=== PATIENT | female | born 1975 | race Caucasian/White ===

== ENCOUNTER 2022-02-28 12:28 | Outpatient (CLI) | payer BC, SELFPAY ==
[2022-02-28 14:19] LABS: Chloride* 99 mmol/L (96-114)
[2022-02-28 14:20] LABS: Albumin* 5.2 g/dL (3.3-5.0)
[2022-02-28 14:21] LABS: Potassium* 4.3 mmol/L (3.6-5.1); Sodium* 138 mmol/L (135-149)
[2022-02-28 14:23] LABS: Alanine Aminotransferase* 95 U/L (4-35); Alkaline Phosphatase* 101 U/L (40-150); Aspartate Amino Transferase* 237 U/L (12-35); Bilirubin Total* 2.4 mg/dL (0.1-1.5); Blood Urea Nitrogen* 14 mg/dL (5-24); Carbon Dioxide* 27 mmol/L (20-32); Creatinine* 0.9 mg/dL (0.5-1.5); Estimated Glomerular Filt Rate 80 ml/min; Glucose* 118 mg/dL (60-115); Lipase* 375 U/L (23-300)
[2022-02-28 14:24] LABS: Calcium* 10.1 mg/dL (8.4-10.6)
== END 2022-02-28 12:29 | disposition home or self-care (01) ==
PROVIDERS: Visit Provider Family Medicine
DX: R11.10 Vomiting, unspecified (principal); K86.89 Other specified diseases of pancreas; R19.7 Diarrhea, unspecified
CPT/HCPCS: 80053; 83690; 87086

== ENCOUNTER 2023-02-16 00:12 | Emergency (ER) | payer BC, SELFPAY ==
--- NOTE | 2023-02-16 | CRLHL7_ITS ---
For Patients: As a result of the Century Cures Act, medical imaging exams and procedure reports are released immediately into your electronic medical record. You may view this report before your referring provider. If you have questions, please contact your health care provider. INDICATION: Pain. Elevated D-dimer. Tachycardia. Pancreatitis. COMPARISON: None TECHNIQUE: : CT examination of the chest was performed with the uneventful intravenous administration of 95 cc of Isovue 370 while thin axial sections were obtained from above the apices of the lungs to the lung bases. Please note that all CT scans at this facility use dose modulation, iterative reconstruction, and/or weight-based dosing when appropriate to reduce radiation dose to as low as reasonably achievable. FINDINGS: : HEART and MEDIASTINUM: The heart size is normal. There is no mediastinal or hilar adenopathy or mass. There is no pericardial effusion. PULMONARY ARTERIAL CIRCULATION: There is no visible intraluminal filling defect to suggest pulmonary embolus. LUNGS: The lungs show no focal consolidation or mass. The airways appear normal. PLEURAL SPACES: There is no pleural effusion, pneumothorax or pleural based mass. VISUALIZED UPPER ABDOMEN: The limited visualized upper abdominal structures appear normal. OSSEOUS STRUCTURES: Age-appropriate appearance. No acute fracture or destructive process.Breast implants incidentally noted TUBES and LINES: None. IMPRESSION: No findings of pulmonary embolus. Lungs and pleural spaces appear normal. Please note that all CT scans at this facility use dose modulation, iterative reconstruction, and/or weight-based dosing when appropriate to reduce radiation dose to as low as reasonably achievable. Dictated by iGlles Thomas MD @ 02/16/2023 3:55:48 AM (Electronically Signed)
[2023-02-16 00:21] VITALS: BP 129/89; PULSE 118; RESP 16; TEMP 36.9; O2SAT 96
[2023-02-16 00:45] VITALS: PULSE 112; O2SAT 95
--- NOTE | 2023-02-16 00:51 | CRLHL7_ITS ---
For Patients: As a result of the Century Cures Act, medical imaging exams and procedure reports are released immediately into your electronic medical record. You may view this report before your referring provider. If you have questions, please contact your health care provider. INDICATION: Right-sided abdominal pain. TECHNIQUE: Ultrasound abdomen limited. Sonographic images of the right upper quadrant were obtained using li-scale and color Doppler images. COMPARISON: None. FINDINGS: Liver: Mildly enlarged with probable fatty infiltration. No suspicious masses. No intrahepatic biliary dilatation. Portal vein is patent with blood flow toward the liver. Gallbladder: No stones or sludge. Normal wall thickness. No pericholecystic fluid. Common bile duct: 5 mm. Pancreas: Unremarkable. Right kidney: Normal in size. Normal echotexture and cortex. No suspicious masses, stones, or hydronephrosis. Vasculature: Proximal abdominal aorta and IVC are unremarkable. IMPRESSION: Moderate hepatomegaly and probable hepatic steatosis. Gallbladder in remainder of the exam are unremarkable. Dictated by Lukas Cervantes MD @ 02/16/2023 3:21:45 AM (Electronically Signed)
--- NOTE | 2023-02-16 00:54 | ED_ITS ---
HPI - General Adult General Chief complaint: Abdominal Pain Stated complaint: lower right side pain Time Seen by Provider: 02/16/23 00:39 Source: patient and family Mode of arrival: ambulatory History of Present Illness HPI narrative: 47-year-old female presents the emergency department with right-sided abdominal pain that started an hour ago. Two day history of intermittent nausea and vomiting. Pain is constant, achy. Starts under the right ribs, worse with taking a deep breath. No true shortness of breath, cough or fever. Last bowel movement earlier today, normal per her description. No prior history of abdominal surgeries. No prior history of similar symptoms. No trauma or injury. Tried taking a Zofran tablet a couple of days ago but the taste seem to make her more nauseated. Has not taken any Tylenol, ibuprofen or other medications to help with pain. No dysuria, no hematuria. She does take hormone replacement therapy, uncertain how that contributes to her history. reports that she also has a high resting heart rate naturally and has had an echo to investigate this in the past per the records. Reports that she is vegetarian but no recent dietary changes. she states that her past medical history is otherwise benign, no major long- term health problems. She denies use of any prescription medications except hormone replacement therapy but she is unable to tell me exactly what balance of hormones she is on. No known drug allergies. Nonsmoker, regular wine drinker. ROS notable for the above Dominguez as above, otherwise denies times 12 system. Related Data Home Medications Medication Instructions Recorded Confirmed alprazolam 1 mg tablet 1 mg PO QDAY 02/28/22 08/13/22 atorvastatin 20 mg tablet 20 mg PO QDAY 02/28/22 08/13/22 lisinopril 20 1 tab PO QDAY 02/28/22 08/13/22 mg-hydrochlorothiazide 12.5 mg tablet metoprolol succinate 25 mg tab PO 02/28/22 08/13/22 tablet,extended release 24 hr levothyroxine 25 mcg tablet 25 mcg PO DAILY 08/13/22 08/13/22 progesterone micronized 200 mg mg PO 08/13/22 08/13/22 capsule Previous Rx's Medication Instructions Recorded ondansetron 4 mg disintegrating 4 mg PO Q6-8H PRN nausea and 02/28/22 tablet vomiting #30 tabs Allergies Allergy/AdvReac Type Severity Reaction Status Date / Time No Known Drug Allergies Allergy Verified 02/16/23 02:53 [facility] Medical History Sore throat ?J02.9 - Acute pharyngitis, unspecified (ICD-10) Social History Smoking Status: Unknown if ever smoked Exam Const: Vital Signs, click to edit/add: Vital Signs - 24 hr 02/16/23 00:21 02/16/23 00:45 02/16/23 01:03 Temperature 98.4 F Pulse Rate 112 H 107 H Pulse Rate [Left P ulse Oximeter] 118 H Respiratory Rate 16 Blood Pressure [Ri ght Upper Arm] 129/89 Pulse Oximetry 96 95 93 Oxygen Delivery Me thod Room Air Room Air Room Air Documenting provider has reviewed patient's vital signs: yes Common normals: no apparent distress and alert General appearance: cooperative and well kempt Orientation/consciousness: Yes awake HENMT: Common normals: normocephalic Head and scalp: normocephalic Face and sinus: normal facial exam Mouth: oral and palatal mucosa normal Throat: posterior oropharynx normal Eye: Common normals: conjunctivae normal General eye: normal appearance of both eyes Conjunctiva: conjunctiva(e) normal Neck & C-Spine: Common normals: full ROM and no lymphadenopathy Resp: Common normals: normal respiratory effort, no use of accessory muscles and clear to auscultation bilaterally Effort & inspection: able to speak in complete sentences Auscultation: clear to auscultation bilaterally Cardio: Common normals: regular rate, regular rhythm, S1 normal heart sound, S2 normal heart sound and no murmurs Rate: regular rate Rhythm: regular rhythm Heart sounds: S1 normal and S2 normal GI: Common normals: Normal to inspection, nondistended, normoactive bowel sounds present, soft to palpation and no masses Palpation: soft Other: Tender to palpation along the right side, does seem to concentrate on the righ t upper quadrant, right rib margin. No rebound tenderness or guarding. Liver is 2 cm in large below costal margin. : Common normals: no CVA tenderness Bladder/kidney exam: no CVA tenderness Back & Pelvis: Common normals: no CVA tenderness Neuro: Sensorium/orientation: awake and alert Speech: speech normal Motor exam: no movement abnormalities noted Psych: Common normals: speech normal Appearance: well kempt Attitude: engaged Activity/motor behavior: appropriate eye contact Speech: normal speech Insight: insight good Judgement: judgment good Skin: Common normals: no rashes or lesions noted General skin exam: no rashes or lesions noted Course Course ED Course: Postprandial abdominal pain with nausea and vomiting suspicious for gallbladder disease. Cannot exclude cholecystitis, choledocholithiasis, biliary dyskinesia, pancreatitis, ischemic bowel, kidney stone, gastroenteritis, GERD, Appendicitis, among others. Strong suspicion for gallbladder disease. recommend basic labs, right upper quadrant ultrasound. Will give Toradol and Zofran for initial symptom control. Await findings. Reevaluation(s) Time of Reevaluation #1: 02:15 Reevaluation #1: Updated patient on lab findings. Toradol and Zofran are helping with symptoms. Concerns for chronic appearing pancreatitis and chronic hepatic dysfunction secondary to alcohol use. D-dimer is elevated which certainly could be a function of her hormone replacement therapy but certainly the hormone replacement therapy would make her at higher risk of a clot also. Ultrasound initially showing no obstruction which is great but I do have lingering concerns for possible pulmonary embolism. I recommended a CT scan of the chest abdomen and pelvis to look at this further. She is a little more marla with me on 2nd discussion regarding her drinking. says that she is probably drinking about 7 glasses of wine per day, she says 4 or 5. She reports that her friends drink more than she does which is certainly not reassuring in the context of her labs. Her labs have been abnormal for over a year. She reports that she continues to stay on testosterone therapy as well. I recommended a CT scan of the chest abdomen and pelvis to look more closely at liver, pancreas and to ev aluate for pulmonary embolism. Time of Reevaluation #2: 04:33 Reevaluation #2: CT scan findings reviewed with patient. Pain is stable, improved overall. No vomiting while in ED. She took the conversation regarding her alcohol use well. She is willing to quit completely and declines additional alcohol cessation resources at this time. She will make a follow-up appointment with her primary care provider in 4-6 weeks to have her labs rechecked and ensure that her liver and pancreas are improving. Strict alcohol abstinence encouraged, I did also encourage her to pause her hormone replacement therapy treatments until her liver has recovered as well. Alarm symptoms reviewed that would warrant ED presentation. She verbalizes understanding and agreement. Vital Signs Vital signs: Initial Vital Signs Temperature 98.4 F 02/16/23 00:21 Temperature Source Temporal Artery Scan 02/16/23 00:21 Pulse Rate 118 H 02/16/23 00:21 Pulse Rhythm Regular 02/16/23 00:21 Respiratory Rate 16 02/16/23 00:21 Blood Pressure 129/89 02/16/23 00:21 Blood Pressure Mean 102 02/16/23 00:21 Blood Pressure Position Sitting 02/16/23 00:21 Pulse Oximetry 96 02/16/23 00:21 Oxygen Delivery Method Room Air 02/16/23 00:21 Vital Signs Temperature 98.4 F 02/16/23 00:21 Pulse Rate 118 H 02/16/23 00:21 Respiratory Rate 16 02/16/23 00:21 Blood Pressure 129/89 02/16/23 00:21 Pulse Oximetry 96 02/16/23 00:21 Oxygen Delivery Method Room Air 02/16/23 00:21 Temperature 98.4 F 02/16/23 00:21 Pulse Rate 107 H 02/16/23 01:03 Respiratory Rate 16 02/16/23 00:21 Blood Pressure 129/89 02/16/23 00:21 Pulse Oximetry 93 02/16/23 01:03 Oxygen Delivery Method Room Air 02/16/23 01:03 Medications Administered Medications: Discontinued Medications Generic Name Dose Route Start Last Admin Trade Name Freq PRN Reason Stop Dose Admin Ketorolac Tromethamine 15 mg 02/16/23 00:53 02/16/23 01:03 Ketorolac 15 Mg/Ml Inj IVP 02/16/23 00:54 15 mg ONCE ONE Administration Ondansetron HCl 4 mg 02/16/23 00:53 02/16/23 01:04 Ondansetron 2 Mg/Ml Inj IVP 02/16/23 00:54 4 mg ONCE ONE Administration Medical Decision Making Lab Data Lab results reviewed: Yes I reviewed the patient's lab results Lab results narrative: Elevated D-dimer. Elevated lipase, in comparison with a year ago, peers to be a chronic finding but likely secondary to alcohol use. With liver enlargement and elevation of AST over ALT, and suspicious of hepatic liver disease. Thankfully her bilirubin is not terribly elevated in an obstructive pattern. The ultrasound is fairly reassuring as well for eliminating cholecystitis or gallstone. Labs: Lab Results 02/16/23 02/16/23 02/16/23 Range/Units 00:45 00:55 01:24 WBC 11.20 H (4.50-11.00) K/uL RBC 4.48 (4.00-5.20) m/uL Hgb 14.7 (12.0-16.0) gm/dL Hct 44.5 (33.0-51.0) % MCV 99 (80-100) fL MCH 33 (26-34) pg MCHC 33 (32-36) gm/dL RDW Coeff of Waldemar 12.6 (11.5-15.5) % Plt Count 222 (140-440) K/uL Neut % (Auto) 52.6 (42.0-72.0) % Lymph % (Auto) 29.8 (20-44) % Garza % (Auto) 14.6 H (0.0-11.0) % Eos % (Auto) 1.7 (0.0-7.0) % Baso % (Auto) 0.7 (0.0-3.0) % Neut # (Auto) 5.90 (1.7-7.0) K/uL Lymph # (Auto) 3.30 H (0.90-2.90) K/uL Garza # (Auto) 1.60 H (0.00-0.90) K/UL Eos # (Auto) 0.20 (0.00-0.50) K/uL Baso # (Auto) 0.10 (0.00-0.30) K/uL Abs Immat Gran (auto) 0.10 (0.00-0.30) K/uL Imm/Tot Granulo (auto) 0.6 % D-Dimer Quant (PE/DVT) 4.70 H (0.00-0.50) ug/ml Sodium 140 (135-149) mmol/L Potassium 4.1 (3.6-5.1) mmol/L Chloride 104 (96-114) mmol/L Carbon Dioxide 22 (20-32) mmol/L Anion Gap 14 (7-15) mEq/L BUN 8 (5-24) mg/dL Creatinine 0.6 (0.5-1.5) mg/dL Estimated GFR 111 ml/min Glucose 101 (60-115) mg/dL Lactate 1.2 (0.5-1.9) mmol/L Calcium 8.9 (8.4-10.6) mg/dL Total Bilirubin 0.7 (0.1-1.5) mg/dL AST 221 H (12-35) U/L ALT 94 H (4-35) U/L Alkaline Phosphatase 105 (40-150) U/L C-Reactive Protein 1.5 H (0.5-1.0) mg/dL Total Protein 8.9 H (6.0-8.3) g/dL Albumin 4.7 (3.3-5.0) g/dL Lipase 679 H (23-300) U/L Urine Color Yellow (Yellow) Urine Appearance Clear (Clear) Urine pH 5.5 (5.0-8.5) Ur Specific [place] 1.010 (1.000-1.030) Urine Protein Negative (Negative) Urine Glucose (UA) Negative (Negative) Urine Ketones Negative (Negative) Urine Blood Negative (Negative) Urine Nitrite Negative (Negative) Urine Bilirubin Negative (Negative) Urine Urobilinogen 0.2 (0.2-1.0) Ur Leukocyte Esterase Negative (Negative) Urine HCG, Qual Negative (Negative) Lab Acknowledgement Test Added Imaging Data US - abdomen: Attestation: I have reviewed the pertinent imaging results. My impression: No gallbladder wall thickening or common bile duct stone. Enlarged liver noted. Radiologist's impression: IMPRESSION: Moderate hepatomegaly and probable hepatic steatosis. Gallbladder in remainder of the exam are unremarkable. Dictated by Lukas Cervantes MD @ 02/16/2023 3:21:[address] scan - abdomen: Attestation: I have reviewed the pertinent imaging results. My impression: Other than liver enlargement and hepatic steatosis, normal Radiologist's impression: IMPRESSION: 1. Hepatic steatosis. Distended but otherwise unremarkable appearing gallbladder. 2. The pancreas appears normal. There is no evidence of pancreatitis or the complications thereof. It is possible pancreatitis by laboratory values without findings on CT. CT scan - chest: Attestation: I have reviewed the pertinent imaging results. My impression: Clear lungs, no PE Radiologist's impression: IMPRESSION: No findings of pulmonary embolus. Lungs and pleural spaces appear normal. Please note that all CT scans at this facility use dose modulation, iterative reconstruction, and/or weight-based dosing when appropriate to reduce radiation dose to as low as reasonably achievable. Dictated by Gilles Thomas MD @ 02/16/2023 3:55:48 AM ECG Data Attestation: I personally reviewed and interpreted this ECG as follows: Prior ECG tracings: not available for review Interpretation: Normal sinus rhythm, rate 106. No significant ST or T-wave abnormalities. Normal intervals and axis. Discharge Plan Discharge Clinical Impression: Alcohol induced acute pancreatitis Patient Disposition: Home w/ Parent or Adult Condition: Stable Instructions: Pancreatitis (ED) Additional Instructions: As we discussed, your abdominal pain is caused by inflammation of the pancreas and liver. In your case, this was mainly caused by alcohol. According to your labs, your pancreas and liver have been inflamed for at least a year. You will start to have more adverse health outcomes, memory loss, abdominal symptoms and advanced aging if you continue to drink alcohol. I would recommend that you completely cut out all alcohol from your system. Your liver and pancreas should improve within a few weeks of quitting alcohol. I would recommend that you make a follow-up appointment in 4-6 weeks to have your labs rechecked by a primary care provider. Now as we discussed, I do not recommend hormone replacement therapy, especially testosterone until your liver has recovered. For the pancreatitis, drink lots of clear liquids, no alcohol and gently advance her diet. It is common to have some nausea and poor appetite. Start with simple things like bread, crackers and soups. Try to avoid heavy fried foods for a week. As her appetite improves, increase your intake to match. It is common to have some abdominal pain with this but it should improve markedly over the next 2-3 days. If you start running a high fever and or have severe abdominal pain, come back to the emergency room. Activity Level: Activity as Tolerated Discharge Diet: Low Fat/Low Cholesterol and Clear Liquid Prescriptions: No Action metoprolol succinate 25 mg tablet extended release 24 hr PO lisinopril-hydrochlorothiazide 20-12.5 mg tablet 1 tab PO QDAY Patient Comments: Take 1 Tablet by mouth once daily. atorvastatin 20 mg tablet 20 mg PO QDAY Patient Comments: TAKE ONE TABLET BY MOUTH AT BEDTIME alprazolam 1 mg tablet 1 mg PO QDAY Patient Comments: TAKE 0.5-1 TABLET BY MOUTH DAILY NEEDED FOR SITUATIONAL ANXIETY ondansetron 4 mg tablet,disintegrating 4 mg PO Q6-8H PRN (Reason: nausea and vomiting) Qty: 30 0RF levothyroxine 25 mcg tablet 25 mcg PO DAILY progesterone micronized 200 mg capsule PO Follow Up/Referrals: Odessa Oneill MD [Primary Care Provider] - Stand Alone Forms: [employer] Info Instructions
[2023-02-16 01:00] LABS: Lactate* 1.2 mmol/L (0.5-1.9)
[2023-02-16 01:03] VITALS: PULSE 107; O2SAT 93
[2023-02-16 01:03] LABS: Basophils Percent Auto 0.7 % (0.0-3.0); Eosinophils Percent Auto 1.7 % (0.0-7.0); Hematocrit 44.5 % (33.0-51.0); Hemoglobin* 14.7 gm/dL (12.0-16.0); Immature Granulocytes Pct Auto 0.6 %; Lymphocytes Percent Auto 29.8 % (20-44); Mean Corpuscular HGB Conc 33 gm/dL (32-36); Mean Corpuscular Hemoglobin 33 pg (26-34); Mean Corpuscular Volume 99 fL (80-100); Monocytes Percent Auto 14.6 % (0.0-11.0); Neutrophils Percent Auto 52.6 % (42.0-72.0); Platelet Count* 222 K/uL (140-440); RDW Coefficient of Variation % 12.6 % (11.5-15.5); Red Blood Count 4.48 m/uL (4.00-5.20)
[2023-02-16] MEDS: KETOROLAC 15 MG/ML inj IVP (01:03)
[2023-02-16] MEDS: ONDANSETRON 2 MG/ML inj 4 MG IVP (01:04)
[2023-02-16 01:05] LABS: Slide Review Reflex No
[2023-02-16 01:05] LABS: Appearance Urine Clear (Clear); Bilirubin Urine Negative (Negative); Blood Urine Negative (Negative); Color Urine Yellow (Yellow); Glucose Urine Negative (Negative); Ketones Urine Negative (Negative); Leukocyte Esterase Urine Negative (Negative); Nitrite Urine Negative (Negative); Protein Urine Negative (Negative); Urobilinogen Urine 0.2 (0.2-1.0); pH Urine 5.5 (5.0-8.5)
[2023-02-16 01:23] LABS: Albumin* 4.7 g/dL (3.3-5.0); Chloride* 104 mmol/L (96-114)
[2023-02-16 01:24] LABS: Potassium* 4.1 mmol/L (3.6-5.1); Sodium* 140 mmol/L (135-149)
[2023-02-16 01:26] LABS: Bilirubin Total* 0.7 mg/dL (0.1-1.5); Creatinine* 0.6 mg/dL (0.5-1.5); Estimated Glomerular Filt Rate 111 ml/min
[2023-02-16 01:27] LABS: Alanine Aminotransferase* 94 U/L (4-35); Alkaline Phosphatase* 105 U/L (40-150); Anion Gap 14 mEq/L (7-15); Aspartate Amino Transferase* 221 U/L (12-35); Blood Urea Nitrogen* 8 mg/dL (5-24); Calcium* 8.9 mg/dL (8.4-10.6); Carbon Dioxide* 22 mmol/L (20-32); Glucose* 101 mg/dL (60-115); Lipase* 679 U/L (23-300); Total Protein* 8.9 g/dL (6.0-8.3)
[2023-02-16 01:30] LABS: C Reactive Protein* 1.5 mg/dL (0.5-1.0)
[2023-02-16 01:55] LABS: Ur HCG Qualitative* Negative (Negative)
--- NOTE | 2023-02-16 02:09 | CRLHL7_ITS ---
For Patients: As a result of the Century Cures Act, medical imaging exams and procedure reports are released immediately into your electronic medical record. You may view this report before your referring provider. If you have questions, please contact your health care provider. INDICATION: Right upper quadrant abdominal pain. Elevated D-dimer. Tachycardia. Pancreatitis. COMPARISON: No prior CTs of this area available for comparison TECHNIQUE: CT examination of the abdomen and pelvis was performed following the uneventful intravenous administration of 95 cc of Isovue 370. Thin section axial images were obtained from the lung bases through the pubic symphysis. Oral contrast was not administered. Please note that all CT scans at this facility use dose modulation, iterative reconstruction, and/or weight-based dosing when appropriate to reduce radiation dose to as low as reasonably achievable. FINDINGS: LUNG BASES: The lung bases as visualized appear normal.The heart size is normal at the lung bases. Breast implants incidentally noted LIVER/BILIARY SYSTEM:The liver is normal in size and configuration. Hepatic steatosis. There is no focal mass and there is no intra- or extra hepatic biliary ductal dilatation.Distended but otherwise unremarkable appearing gallbladder ADRENALS: Normal KIDNEYS, URETERS and BLADDER:The kidneys appear normal. No visible mass, calculus or hydronephrosis. The ureters and bladder as visualized appear normal. SPLEEN:Normal appearance. PANCREAS: There is no evidence of pancreatitis or the complications thereof on this CT. It is possible to have pancreatitis by laboratory values without CT findings RETROPERITONEUM and MESENTERY: There is no mass, adenopathy or aortic aneurysm. GASTROINTESTINAL SYSTEM: There is no evidence of diverticulitis, colitis, mechanical obstruction, or appendicitis. The small bowel as visualized appears normal. PELVIS: No mass, adenopathy or free fluid. OSSEOUS STRUCTURES and ABDOMINAL WALL: There is an age-appropriate appearance of the osseous structures.No significant abdominal wall defect. OTHER: No free fluid or free air. IMPRESSION: 1. Hepatic steatosis. Distended but otherwise unremarkable appearing gallbladder. 2. The pancreas appears normal. There is no evidence of pancreatitis or the complications thereof. It is possible pancreatitis by laboratory values without findings on CT. Please note that all CT scans at this facility use dose modulation, iterative reconstruction, and/or weight-based dosing when appropriate to reduce radiation dose to as low as reasonably achievable. Dictated by Gilles Thomas MD @ 02/16/2023 3:59:29 AM (Electronically Signed)
[2023-02-16 04:25] VITALS: BP 113/64; PULSE 82; RESP 18; O2SAT 98
[2023-02-16] MEDS: OMEPRAZOLE 20 MG CAPSULE DR PO (04:53)
== END 2023-02-16 04:56 | disposition home or self-care (01) ==
PROVIDERS: Emergency Provider Family Medicine; PCP Family Medicine
DX: K85.20 Alcohol induced acute pancreatitis without necrosis or infection (principal)
CPT/HCPCS: 36415; 71275; 74177; 76705; 80053; 81003; 81025; 83605; 83690; 85025; 85379; 86140; 93005; 96374; 96375; 99284; 99285; A9270; J1885; J2405; Q9967

== ENCOUNTER 2024-03-16 16:55 | Emergency (ER) | payer BC, SELFPAY ==
[2024-03-16 17:00] VITALS: BP 123/73; PULSE 148; RESP 24; TEMP 37.7; O2SAT 99; BMI 20.8
[2024-03-16] MEDS: ONDANSETRON 2 MG/ML inj 4 MG IVP (17:35)
--- NOTE | 2024-03-16 17:42 | ED.GENADULT ---
HPI - General Adult General Chief complaint: Abdominal Pain Stated complaint: GI upset, severe shaking, low temp, vomit Time Seen by Provider: 03/16/24 17:15 History of Present Illness HPI narrative: This 48-year-old female comes in reporting chills and shaking with nausea and vomiting. She has had symptoms like this in the past and has been to a brick unloader tender because her liver enzymes and lipase have been elevated. She has had CT imaging of her chest, abdomen, and pelvis. She has also had an ultrasound of the right upper quadrant. The brick unloader tender does not think that she has pancreatitis but there is something causing these elevated labs. She states that last evening she began to have nausea with vomiting. She did have a glass of wine last evening which is not abnormal for her. She tells me she has also been taking Wegovy. She is not overweight but states that she is taking this because insurance will pay for it. Related Data Home Medications ?Medication ?Instructions ?Recorded ?Confirmed alprazolam 1 mg tablet 1 mg PO QDAY 02/28/22 03/16/24 atorvastatin 20 mg tablet 20 mg PO QDAY 02/28/22 03/16/24 lisinopril 20 1 tab PO QDAY 02/28/22 03/16/24 mg-hydrochlorothiazide 12.5 mg tablet metoprolol succinate 25 mg tab PO 02/28/22 03/16/24 tablet,extended release 24 hr levothyroxine 25 mcg tablet 25 mcg PO DAILY 08/13/22 03/16/24 progesterone micronized 200 mg mg PO 08/13/22 03/16/24 capsule Previous Rx's ?Medication ?Instructions ?Recorded ondansetron 4 mg disintegrating 4 mg PO Q6-8H PRN nausea and 02/28/22 tablet vomiting #30 tabs Allergies Allergy/AdvReac Type Severity Reaction Status Date / Time No Known Drug Allergies Allergy Verified 03/16/24 17:09 Review of Systems Status of ROS: Reports: 10 or more systems reviewed and unremarkable except as noted in History and below Narrative: Constitutional: No fevers, no weight gain or loss. Eyes: No discharge. No vision changes. HENT: No congestion, no sore throat, no ear pain. Cardiovascular: No chest pain, no palpitations. Respiratory: No shortness of breath, no wheezes, no cough. Gastrointestinal: No diarrhea. Nausea and recurrent vomiting and dry heaves. She does have abdominal discomfort when vomiting but not otherwise. Genitourinary: No dysuria, no hematuria. Musculoskeletal: Normal range of motion. Skin: No rashes, no pruritis. Neurological: No dizziness, weakness, sensory change, speech change. Endo/Heme/Allergies: No bruising or bleeding. No polydipsia. Pysch: no suicidality, no anxiety, no insomnia. All other systems reviewed and are negative. [facility] Medical History (Updated 03/16/24 @ 20:34 by Daniel Wilson MD) Uncontrollable nausea and vomiting ?R11.2 - Nausea with vomiting, unspecified (ICD-10) Sore throat ?J02.9 - Acute pharyngitis, unspecified (ICD-10) Social History Smoking Status: Never smoker How often do you have a drink containing alcohol: 4 or more times a week How many standard drinks containing alcohol do you have on a typical day: 3 or 4 How often do you have six or more drinks on one occasion: Weekly AUDIT-C Alcohol total score: 8 Non-prescribed substance use: denies use Exam Narrative: Exam Narrative: Constitutional: Well-developed, well-nourished, no acute distress. HEENT: Normocephalic, atraumatic. Neck: Normal range of motion. Nontender. Supple. Heart: Regular. No murmurs. Tachycardia. Intact distal pulses. Lungs: Clear to auscultation. No chest discomfort. No wheezes, rhonchi, or rales. Abdomen: Normal bowel sounds. Nontender. No rebound tenderness. Genitalia: Deferred. Back: No midline tenderness. Normal range of motion. Extremities: Normal range of motion. No injury. Skin: Intact. No rash. Warm. No erythema or pallor. Neurologic: No altered sensation. No weakness. Alert and oriented. Psychiatric: No suicidality. No anxiety or depression. No insomnia. Nursing notes and vitals signs are reviewed. Const: Vital Signs, click to edit/add: Vital Signs - 24 hr 03/16/24 17:00 03/16/24 17:54 03/16/24 18:25 Temperature 99.9 F H 98.6 F Pulse Rate 131 H Pulse Rate [Right Pulse Oximeter] 148 H Respiratory Rate 24 Blood Pressure [Ri ght Upper Arm] 123/73 Pulse Oximetry 99 96 Oxygen Delivery Me thod Room Air 03/16/24 18:30 03/16/24 18:45 03/16/24 19:00 Temperature Pulse Rate 127 H 124 H 126 H Pulse Rate [Right Pulse Oximeter] Respiratory Rate 20 Blood Pressure [Ri ght Upper Arm] Pulse Oximetry 97 97 95 Oxygen Delivery Me thod Room Air Course Vital Signs Vital signs: Initial Vital Signs Temperature 99.9 F H 03/16/24 17:00 Temperature Source Temporal Artery Scan 03/16/24 17:00 Pulse Rate 148 H 03/16/24 17:00 Pulse Rhythm Regular 03/16/24 17:00 Respiratory Rate 24 03/16/24 17:00 Blood Pressure 123/73 03/16/24 17:00 Blood Pressure Mean 89 03/16/24 17:00 Blood Pressure Position Sitting 03/16/24 17:00 Pulse Oximetry 99 03/16/24 17:00 Oxygen Delivery Method Room Air 03/16/24 17:00 Vital Signs Temperature 99.9 F H 03/16/24 17:00 Pulse Rate 148 H 03/16/24 17:00 Respiratory Rate 24 03/16/24 17:00 Blood Pressure 123/73 03/16/24 17:00 Pulse Oximetry 99 03/16/24 17:00 Oxygen Delivery Method Room Air 03/16/24 17:00 Temperature 98.6 F 03/16/24 17:54 Pulse Rate 126 H 03/16/24 19:00 Respiratory Rate 20 03/16/24 18:30 Blood Pressure 123/73 03/16/24 17:00 Pulse Oximetry 95 03/16/24 19:00 Oxygen Delivery Method Room Air 03/16/24 18:30 Medications Administered Medications: Generic Name Dose Route Start Last Admin Trade Name Freq PRN Reason Stop Dose Admin Sodium Chloride 1,000 mls @ 1,000 mls/hr 03/16/24 19:45 03/16/24 19:54 0.9 % Sodium Chloride 1000 Ml IV 03/16/24 20:44 1,000 mls/hr .Q1H ORIANA Administration Discontinued Medications Generic Name Dose Route Start Last Admin Trade Name Freq PRN Reason Stop Dose Admin Sodium Chloride 1,000 mls @ 1,000 mls/hr 03/16/24 17:45 03/16/24 18:34 0.9 % Sodium Chloride 1000 Ml IV 03/16/24 18:44 Infused .Q1H ORIANA Infusion Sodium Chloride 1,000 mls @ 1,000 mls/hr 03/16/24 18:15 03/16/24 19:33 0.9 % Sodium Chloride 1000 Ml IV 03/16/24 19:14 Infused .Q1H ORIANA Infusion Ondansetron HCl 4 mg 03/16/24 17:40 03/16/24 17:35 Ondansetron 2 Mg/Ml Inj IVP 03/16/24 17:41 4 mg ONCE ONE Administration Medical Decision Making MDM Narrative Medical decision making narrative: This 48-year-old female comes in with persistent nausea and vomiting. She does not have any pain except when she is vomiting she feels pain in her upper abdomen. She arrives here with tachycardia but otherwise has reassuring vital signs. An IV was established where she received 4 mg of Zofran and a L of normal saline. This patient has had similar symptoms a few times in the more recent past and was seen here about a month ago at which time she had CT imaging and ultrasound imaging with reassuring results. However her lab results then were abnormal with elevated liver enzymes and lipase. Labs today are acquired and returned with similar results. Her AST is elevated but a bit less than it was a month ago. Her total bilirubin however is more elevated at 4.7. Her lactate returns at 6.6. The patient did received 2 more L of normal saline which is greater than 30 milliliters/kilogram of fluid resuscitation. She is feeling much better and does not have any abdominal pain. Her repeat lactate returns at 2.2. She is not showing any sign of infection and has not had a fever. Her white count returns a bit above normal. Her lipase is significantly elevated at 1024. She had elevated lipases in her previous visit and a follow-up appointment with the GI specialist stated that he did not think that this was pancreatitis. This patient today has no upper abdominal pain and states that she has been tolerating food normally. It is yet unclear why her labs are normal. The patient does take a glass of wine a few times a week. She also has been taking Wegovy and states that she has lost about 25 lb. I did research adverse effects of this medication and see that it can include pancreatitis. I advised her to absolutely discontinue this medicine and all alcohol as her liver should not have to do with any toxin from those sources. She is agreeable with this plan. She continues to have tachycardia despite these treatments. It is not clear why she has elevated heart rate except the patient states that she typically does have an elevated heart rate as she has seen a hormone specialist and a GI specialist who are managing some of these matters. She does have a follow-up appointment with the GI specialist next week. There are currently no beds available in this hospital nor any available and surrounding hospitals. The patient states that she wants to return home and understands that she can return at any time for further evaluation and treatment. Lab Data Labs: Lab Results 03/16/24 03/16/24 Range/Units 17:30 19:51 WBC 11.39 H (4.50-11.00) K/uL RBC 3.26 L (4.00-5.20) m/uL Hgb 11.1 L (12.0-16.0) gm/dL Hct 33.0 (33.0-51.0) % MCV 101 H (80-100) fL MCH 34 (26-34) pg MCHC 34 (32-36) gm/dL RDW Coeff of Waldemar 13.6 (11.5-15.5) % Plt Count 142 (140-440) K/uL Neut % (Auto) 81.4 H (42.0-72.0) % Lymph % (Auto) 8.8 L (20-44) % Elk % (Auto) 8.9 (0.0-11.0) % Eos % (Auto) 0.3 (0.0-7.0) % Baso % (Auto) 0.4 (0.0-3.0) % Neut # (Auto) 9.30 H (1.7-7.0) K/uL Lymph # (Auto) 1.00 (0.90-2.90) K/uL Elk # (Auto) 1.00 H (0.00-0.90) K/UL Eos # (Auto) 0.00 (0.00-0.50) K/uL Baso # (Auto) 0.00 (0.00-0.30) K/uL Abs Immat Gran (auto) 0.00 (0.00-0.30) K/uL Imm/Tot Granulo (auto) 0.2 % INR 1.23 H (0.91-1.10) Sodium 137 (135-149) mmol/L Potassium 3.8 (3.6-5.1) mmol/L Chloride 104 (96-114) mmol/L Carbon Dioxide 16 L (20-32) mmol/L Anion Gap 17 H (7-15) mEq/L BUN 8 (5-24) mg/dL Creatinine 0.6 (0.5-1.5) mg/dL Estimated Creat Clear 105.92 Estimated GFR 111 ml/min Glucose 180 H (60-115) mg/dL Lactate 6.6 H* 2.2 H (0.5-1.9) mmol/L Calcium 9.1 (8.4-10.6) mg/dL Total Bilirubin 4.7 H (0.1-1.5) mg/dL Direct Bilirubin 1.7 H (0.0-0.5) mg/dL AST 183 H (12-35) U/L ALT 39 H (4-35) U/L Alkaline Phosphatase 153 H (40-150) U/L Total Protein 8.8 H (6.0-8.3) g/dL Albumin 4.2 (3.3-5.0) g/dL Lipase 1024 H (23-300) U/L ECG Data Attestation: I personally reviewed and interpreted this ECG as follows: Interpretation: Sinus tachycardia, rate 120 beats per minute. There are no specific ST or T-wave abnormalities. Discharge Plan Discharge Clinical Impression: Uncontrollable nausea and vomiting, Elevated liver enzymes Patient Disposition: Home, Self-Care Condition: Improved Additional Instructions: Avoid all use of alcohol and discontinue Wegovy. Follow-up with brick unloader tender as scheduled. Return if worsening. Prescriptions: No Action metoprolol succinate 25 mg tablet extended release 24 hr PO lisinopril-hydrochlorothiazide 20-12.5 mg tablet 1 tab PO QDAY Patient Comments: Take 1 Tablet by mouth once daily. atorvastatin 20 mg tablet 20 mg PO QDAY Patient Comments: TAKE ONE TABLET BY MOUTH AT BEDTIME alprazolam 1 mg tablet 1 mg PO QDAY Patient Comments: TAKE 0.5-1 TABLET BY MOUTH DAILY NEEDED FOR SITUATIONAL ANXIETY ondansetron 4 mg tablet,disintegrating 4 mg PO Q6-8H PRN (Reason: nausea and vomiting) Qty: 30 0RF levothyroxine 25 mcg tablet 25 mcg PO DAILY progesterone micronized 200 mg capsule PO Follow Up/Referrals: Odessa Oneill MD [Primary Care Provider] - Stand Alone Forms: File[employer] Info Instructions
[2024-03-16] MEDS: 0.9 % SODIUM CHLORIDE 1000 ml 1,000 ML IV ×3 (17:49→19:54)
[2024-03-16 17:51] LABS: Lactate* 6.6 mmol/L (0.5-1.9)
[2024-03-16 17:54] VITALS: TEMP 37
[2024-03-16 17:56] LABS: Basophils Percent Auto 0.4 % (0.0-3.0); Eosinophils Percent Auto 0.3 % (0.0-7.0); Hemoglobin* 11.1 gm/dL (12.0-16.0); Immature Granulocytes Pct Auto 0.2 %; Lymphocytes Percent Auto 8.8 % (20-44); Mean Corpuscular HGB Conc 34 gm/dL (32-36); Mean Corpuscular Hemoglobin 34 pg (26-34); Mean Corpuscular Volume 101 fL (80-100); Monocytes Percent Auto 8.9 % (0.0-11.0); Neutrophils Percent Auto 81.4 % (42.0-72.0); Platelet Count* 142 K/uL (140-440); RDW Coefficient of Variation % 13.6 % (11.5-15.5); Red Blood Count 3.26 m/uL (4.00-5.20); White Blood Count* 11.39 K/uL (4.50-11.00)
--- OUTSIDE RECORDS SUMMARY | 2024-03-16 17:59 | XMS_ITS | Referral Summary ---
Author Organization [facility] Address [address] [place] [address] Care Team Providers Care Security Systems Installer Name Role Phone Kit Carmen PA-C Primary Care Provider [phone] Encounters Date Type Department Care Team Description 02/20/2024 12:37 AM TOP STEEP TENDER - 02/20/2024 2:35 AM [facility] [address] [place] [address] Vinod Ellis MD Vomiting, unspecified vomiting type, unspecified whether nausea present; Other cirrhosis of liver (H); Acute pancreatitis, unspecified complication status, unspecified pancreatitis type; Abnormal LFTs; Tachycardia Discharge Disposition: Home or Self Care 02/19/2024 Travel from Last 3 Months Allergies No known active allergies Medications ondansetron (ZOFRAN ODT) 4 MG ODT tab Take 1 tablet (4 mg) by mouth every 8 hours as needed for nausea or vomiting. 10 tablet 02/20/2024 Active Social History Tobacco Use Types Packs/Day Years Used Date Smoking Tobacco: Never Assessed Adolescent Education Answer Date Record ed Getting School Help Needed Not on file 11/22 Comments Unknown Sex and Gender Information Value Date Recorded Sex Assigned at Not on file Legal Sex Female 3:27 AM TOP STEEP TENDER Gender Identity Not on file Sexual Orientation Not on file Last Filed Vital Signs Vital Sign Reading Time Taken Comments Blood Pressure 127/81 02/20/2024 1:05 AM TOP STEEP TENDER Pulse 115 02/20/2024 1:05 AM TOP STEEP TENDER Temperature 37.3 C (99.1 F) 02/19/2024 8:40 PM TOP STEEP TENDER Respiratory Rate 20 02/19/2024 8:40 PM TOP STEEP TENDER Oxygen Saturation 99% 02/20/2024 1:05 AM TOP STEEP TENDER Inhaled Oxygen Concentration - - Weight 58.6 kg (129 lb 3 oz) 02/19/2024 8:40 PM TOP STEEP TENDER Height 167.6 cm (5' 6) 02/19/2024 8:40 PM TOP STEEP TENDER Body Mass Index 20.85 02/19/2024 8:40 PM TOP STEEP TENDER Plan of Treatment Not on file Procedures Procedure Name Priority Date/Time Associated Diagnosis Comments CT ABDOMEN PELVIS W CONTRAST STAT 02/19/2024 11:13 PM TOP STEEP TENDER CBC WITH PLATELETS & DIFFERENTIAL STAT 02/19/2024 8:53 PM TOP STEEP TENDER HEMOGLOBIN A1C Add-On 02/19/2024 8:53 PM TOP STEEP TENDER LIPASE STAT 02/19/2024 8:53 PM TOP STEEP TENDER CBC WITH PLATELETS AND DIFFERENTIAL STAT 02/19/2024 8:53 PM TOP STEEP TENDER EXTRA BLUE TOP TUBE STAT 02/19/2024 8 :53 PM TOP STEEP TENDER COMPREHENSIVE METABOLIC PANEL STAT 02/19/2024 8:53 PM TOP STEEP TENDER HCG QUALITATIVE STAT 02/19/2024 8:53 PM TOP STEEP TENDER EXTRA TUBE STAT 02/19/2024 8:53 PM TOP STEEP TENDER MA DIAGNOSTIC WITH IMPLANTS BILATERAL W/ ARI Routine 09/09/2022 10:57 AM CDT Subareolar mass of left breast from Last 3 Months or Most Recently Relevant to Health Maintenance Results * CT Abdomen Pelvis w Contrast (02/19/2024 11:13 PM TOP STEEP TENDER) Anatomical Region Laterality Modality Abdomen/Pelvis, SUBRAD CT RUPERTO DY, UMP CT ABDOMEN PELVIS, RAD CT Computed Tomography 02/19/2024 11:1 3 PM TOP STEEP TENDER Impressions 02/19/2024 11:39 PM TOP STEEP TENDER IMPRESSION: 1. No acute findings or inflammatory changes in the abdomen or pelvis. 2. Morphologic changes of cirrhosis. Small abdominal varices, including patent periumbilical vein and gastroesophageal varices, suggesting portal hypertension. Trace pelvic ascites. Narrative 02/19/2024 11:39 PM TOP STEEP TENDER EXAM: CT ABDOMEN PELVIS W CONTRAST LOCATION: [facility] DATE: 02/19/2024 INDICATION: Recurrent abdominal pain, bloody emesis, takes Wegovy. COMPARISON: None. TECHNIQUE: CT scan of the abdomen and pelvis was performed following injection of IV contrast. Multiplanar reformats were obtained. Dose reduction techniques were used. CONTRAST: 65 mL Isovue 370 FINDINGS: LOWER CHEST: No focal airspace disease. Partially visualized breast implants. HEPATOBILIARY: Nodular hepatic surface contour. Subcentimeter left hepatic lobe lesion measuring 0.5 cm, too small to characterize. No additional hepatic lesions identified. Gallbladder appears normal. No biliary dilatation. PANCREAS: Normal. SPLEEN: Normal. ADRENAL GLANDS: Normal. KIDNEYS/BLADDER: Nonobstructing right renal midpole calculus measuring 0.2 cm. Kidneys otherwise appear normal. No hydronephrosis. Urinary bladder is mostly decompressed. BOWEL: No obstruction or inflammatory change. Normal appendix. No evidence of acute appendicitis. PERITONEUM/RETROPERITONEUM: Trace pelvic ascites. No intraperitoneal free air. LYMPH NODES: No lymphadenopathy. VASCULATURE: Small abdominal varices, including patent periumbilical vein and gastroesophageal varices. PELVIC ORGANS: Unremarkable. MUSCULOSKELETAL: Multilevel degenerative changes of the spine. Procedure Note Ronan Velazquez MD - 02/19/2024 EXAM: CT ABDOMEN PELVIS W CONTRAST LOCATION: [facility] DATE: 02/19/2024 INDICATION: Recurrent abdominal pain, bloody emesis, takes Wegovy. COMPARISON: None. TECHNIQUE: CT scan of the abdomen and pelvis was performed followinginjection of IV contrast. Multiplanar reformats were obtained. Dosereduction techniques were used. CONTRAST: 65 mL Isovue 370 FINDINGS: LOWER CHEST: No focal airspace disease. Partially visualized breastimplants. HEPATOBILIARY: Nodular hepatic surface contour. Subcentimeter left hepaticlobe lesion measuring 0.5 cm, too small to characterize. No additionalhepatic lesions identified. Gallbladder appears normal. No biliarydilatation. PANCREAS: Normal. SPLEEN: Normal. ADRENAL GLANDS: Normal. KIDNEYS/BLADDER: Nonobstructing right renal midpole calculus measuring 0.2cm. Kidneys otherwise appear normal. No hydronephrosis. Urinary bladder ismostly decompressed. BOWEL: No obstruction or inflammatory change. Normal appendix. No evidenceof acute appendicitis. PERITONEUM/RETROPERITONEUM: Trace pelvic ascites. No intraperitoneal freeair. LYMPH NODES: No lymphadenopathy. VASCULATURE: Small abdominal varices, including patent periumbilical veinand gastroesophageal varices. PELVIC ORGANS: Unremarkable. MUSCULOSKELETAL: Multilevel degenerative changes of the spine. IMPRESSION: 1. No acute findings or inflammatory changes in the abdomen or pelvis. 2. Morphologic changes of cirrhosis. Small abdominal varices, includingpatent periumbilical vein and gastroesophageal varices, suggesting portalhypertension. Trace pelvic ascites. Brody Richards MD IMG CT ORDERABLES Final Resu lt * Extra Blue Top Tube (02/19/2024 8:53 PM TOP STEEP TENDER) Pathologist [facility] Hold Specimen [facility] 02/19/2024 10:31 PM TOP STEEP TENDER LABORATORY Blood BLOOD SPECIMEN / Unknown Venipuncture / Unknown 02/19/2024 8:53 PM TOP STEEP TENDER 02/19/2024 9:18 PM TOP STEEP TENDER Vinod Ellis MD LAB - BLOOD ORDERABLES Final Result LABORATORY [facility] [address] [facility] Lab (1st floor, no room number) [place] [address] * (ABNORMAL) CBC with platelets and differential (02/19/2024 8:53 PM TOP STEEP TENDER) Pathologist [facility] WBC Count 11.3(H) 4.0 - 11.0 10e3/uL 02/19/2024 9:26 PM TOP STEEP TENDER LABORATORY RBC Count 3.50(L) 3.80 - 5.20 10e6/uL 02/19/2024 9:26 PM TOP STEEP TENDER LABORATORY Hemoglobin 11.7 11.7 - 15.7 g/dL 02/19/2024 9:26 PM TOP STEEP TENDER RH LABORATORY Hematocrit 34.8(L) 35.0 - 47.0 % 02/19/2024 9:26 PM TOP STEEP TENDER [facility] LABORATORY MCV 99 78 - 100 fL 02/19/2024 9:26 PM TOP STEEP TENDER RH LABORATORY MCH 33.4(H) 26.5 - 33.0 pg 02/19/2024 9:26 PM TOP STEEP TENDER RH LABORATORY MCHC 33.6 31.5 - 36.5 g/dL 02/19/2024 9:26 PM TOP STEEP TENDER [facility] LABORATORY RDW 14.2 10.0 - 15.0 % 02/19/2024 9:26 PM TOP STEEP TENDER [facility] LABORATORY Platelet Count 171 150 - 450 10e3/uL 02/19/2024 9:26 PM TOP STEEP TENDER [facility] LABORATORY % Neutrophils 79 % 02/19/2024 9:26 PM TOP STEEP TENDER [facility] LABORATORY % Lymphocytes 13 % 02/19/2024 9:26 PM TOP STEEP TENDER [facility] LABORATORY % Monocytes 7 % 02/19/2024 9:26 PM TOP STEEP TENDER [facility] LABORATORY % Eosinophils 0 % 02/19/2024 9:26 PM TOP STEEP TENDER [facility] LABORATORY % Basophils 1 % 02/19/2024 9:26 PM TOP STEEP TENDER [facility] LABORATORY % Immature Granulocytes 0 % 02/19/2024 9:26 PM TOP STEEP TENDER RH LABORATORY NRBCs per 100 WBC 0 <1 /100 024 9:26 PM TOP STEEP TENDER RH LABORATORY Absolute Neutrophils 8.9(H) 1.6 - 8.3 10e3/uL 02/19/2024 9:26 PM TOP STEEP TENDER RH LABORATORY Absolute Lymphocytes 1.4 0.8 - 5.3 10e3/uL 02/19/2024 9:26 PM TOP STEEP TENDER RH LABORATORY Absolute Monocytes 0.7 0.0 - 1.3 10e3/uL 02/19/2024 9:26 PM TOP STEEP TENDER RH LABORATORY Absolute Eosinophils 0.0 0.0 - 0.7 10e3/uL 02/19/2024 9:26 PM TOP STEEP TENDER [facility] LABORATORY Absolute Basophils 0.1 0.0 - 0.2 10e3/uL 02/19/2024 9:26 PM TOP STEEP TENDER RH LABORATORY Absolute Immature Granulocytes 0.0 <=0.4 10e3/uL 02/19/2024 9:26 PM TOP STEEP TENDER RH LABORATORY Absolute NRBCs 0.0 10e3/uL 02/19/2024 9:26 PM TOP STEEP TENDER RH LABORATORY Blood BLOOD SPECIMEN / Unknown Venipuncture / Unknown 02/19/2024 8:53 PM TOP STEEP TENDER 02/19/2024 9:18 PM TOP STEEP TENDER Brody Richards MD LAB - BLOOD ORDERABLES Final Result [facility] [address] Lab (1st floor, no room number) [place] [phone] [place] [address] * (ABNORMAL) Lipase (02/19/2024 8:53 PM TOP STEEP TENDER) Pathologist [facility] Lipase 347(H) 13 - 60 U/L 02/20/2024 2:11 AM TOP STEEP TENDER LABORATORY Blood BLOOD SPECIMEN / Unknown Venipuncture / Unknown 02/19/2024 8:53 PM TOP STEEP TENDER 02/19/2024 9:18 PM TOP STEEP TENDER Vinod Ellis MD LAB - BLOOD ORDERABLES Final Result Performing Organization Address [facility] Co de Phone Number [facility] [address] Lab (1st floor, no room number) [place] [phone] [place] [address] * Hemoglobin A1c (02/19/2024 8:53 PM TOP STEEP TENDER) [facility] Estimated Average Glucose 108 <117 mg/dL 02/20/2024 2:39 AM TOP STEEP TENDER LABORATORY Hemoglobin A1C 5.4 <5.7 % 02/20/2024 2:39 AM TOP STEEP TENDER LABORATORY Comment: Normal <5.7% Prediabetes 5.7-6.4% Diabetes 6.5% or higher Note: Adopted from ADA consensus guidelines. Blood BLOOD SPECIMEN / Unknown Venipuncture / Unknown 02/19/2024 8:53 PM TOP STEEP TENDER 02/19/2024 9:18 PM TOP STEEP TENDER Vinod Ellis MD LAB - BLOOD ORDERABLES Final Result Performing Organization Address City/[facility]/ZIP Co de Phone Number [facility] [address] Lab (1st floor, no room number) [place] [phone] * HCG QUALitative (blood) (02/19/2024 8:53 PM TOP STEEP TENDER) hCG Serum Qualitative Negative Negative NOHEMI 02/19/2024 10:00 PM TOP STEEP TENDER [facility] LABORATORY Comment:This test is for scr eening purposes. Results should be interpreted along with the clinical picture. Confirmation testing is available if warranted by ordering [id number], HCG Quantitative . Blood BLOOD SPECIMEN / Unknown Venipuncture / Unknown 02/19/2024 8:53 PM TOP STEEP TENDER 02/19/2024 9:18 PM TOP STEEP TENDER us Brody Richards MD LAB - BLOOD ORDERABLES Final Result LABORATORY [facility] [address] [facility] Lab (1st floor, no room number) [place] [address], [facility] * (ABNORMAL) Comprehensive metabolic panel (02/19/2024 8:53 PM TOP STEEP TENDER) Sodium 135 135 - 145 mmol/L 02/19/2024 9:43 PM TOP STEEP TENDER LABORATORY Potassium 4.1 3.4 - 5.3 mmol/L 02/19/2024 9:43 PM TOP STEEP TENDER LABORATORY Carbon Dioxide (CO2) 19(L) 22 - 29 mmol/L 02/19/2024 9:43 PM TOP STEEP TENDER LABORATORY Anion Gap 21(H) 7 - 15 mmol/L 02/19/2024 9:43 PM TOP STEEP TENDER LABORATORY Urea Nitrogen 10.0 6.0 - 20.0 mg/dL 02/19/2024 9:43 PM TOP STEEP TENDER LABORATORY Creatinine 0.65 0.51 - 0.95 mg/dL 02/19/2024 9:43 PM TOP STEEP TENDER LABORATORY GFR Estimate >90 >60 mL/min/1.7 3m2 02/19/2024 9:43 PM TOP STEEP TENDER LABORATORY Comment:eGFR calculated us2020 CKD-EPI equation. Calcium 9.7 8.8 - 10.4 mg/dL 02/19/2024 9:43 PM TOP STEEP TENDER LABORATORY Comment:Reference intervals for this test were updated on 09/07/2023 to reflect our healthy population more accurately. There may be differences in the flagging of prior results with similar values performed with this method. Those prior results can be interpreted in the context of the updated reference intervals. Chloride 95(L) 98 - 107 mmol/L 02/19/2024 9:43 PM TOP STEEP TENDER LABORATORY Glucose 144(H) 70 - 99 mg/dL 02/19/2024 9:43 PM TOP STEEP TENDER LABORATORY Alkaline Phosphatase 153(H) 40 - 150 U/L 02/19/2024 9:43 PM TOP STEEP TENDER LABORATORY AST 216(H) 0 - 45 U/L 02/19/2024 9:43 PM TOP STEEP TENDER LABORATORY ALT 44 0 - 50 U/L 02/19/2024 9:43 PM TOP STEEP TENDER LABORATORY Protein Total 8.6(H) 6.4 - 8.3 g/dL 02/19/2024 9:43 PM TOP STEEP TENDER LABORATORY Albumin 3.8 3.5 - 5.2 g/dL 02/19/2024 9:43 PM TOP STEEP TENDER LABORATORY Bilirubin Total 4.0(H) <=1.2 mg/dL 02/19/2024 9:43 PM TOP STEEP TENDER LABORATORY Blood BLOOD SPECIMEN / Unknown Venipuncture / Unknown 02/19/2024 8:53 PM TOP STEEP TENDER 02/19/2024 9:18 PM TOP STEEP TENDER us Brody Richards MD LAB - BLOOD ORDERABLES Final Result [facility] [address] [facility] Lab (1st floor, no room number) [place] [address] * MA Diagnostic with Implants Bilateral w/Ari (09/09/2022 10:57 AM CDT) Anatomical Region Laterality Modality Breast Bilateral Mammography Impressions 09/09/2022 11:55 AM CDT IMPRESSION: BI-RADS CATEGORY: 2 - Benign Finding(s). RECOMMENDED FOLLOW-UP: Annual Mammography. The patient was given the results of the examination. DEQUAN EDDY MD Narrative 09/09/2022 11:55 AM CDT Examination: Bilateral digital diagnostic mammography and digital breast tomosynthesis with computer aided detection, and focused ultrasound of both breasts, 09/09/2022. Comparison: 03/04/2015 and 06/20/2021. History: Palpable lump in the retroareolar LEFT breast. BREAST DENSITY: Scattered fibroglandular densities Findings: Bilateral mammography with digital breast tomosynthesis performed with a triangle shaped marker in the periareolar LEFT breast at the patient's area of concern. Asymmetric density is seen in the retroareolar aspect of both breasts. Retropectoral saline implants are seen on both sides. Focussed ultrasound of the retroareolar aspect of both breasts was performed. Benign cysts are seen within and just deep to the areola on both sides, RIGHT greater than LEFT. No concerning findings identified. Kit Carmen PA-C IMG MAMMOGRAPHY ORDERABLES F inal Result from Last 3 Months or Most Recently Relevant to Health Maintenance Insurance [facility] Care Teams Security Systems Installer Relationship Specialty Start Date End Date Kit Carmen PA-C [facility] [address] [place] [address] PCP - General Physician Community Pharmacist 08/24/17
--- OUTSIDE RECORDS SUMMARY | 2024-03-16 17:59 | XMS_ITS | Encounter Summary ---
Author Organization [facility] Address [address] [place] [id number] Care Team Providers Care Teen Counselor Name Role Phone Kit Carmen PA-C Primary Care Provider [phone] Encounter Details Date Type Department Care Team (Latest Contact Info) Description 02/19/2024 Travel Social History Tobacco Use Types Packs/Day Years Used Date Smoking Tobacco: Never Assessed Adolescent Education Answer Date Record ed Getting School Help Needed Not on file 11/22 Comments Unknown Sex and Gender Information Value Date Recorded Sex Assigned at Not on file Legal Sex Female 3:27 AM MAINTENANCE ELECTRICIAN Gender Identity Not on file Sexual Orientation Not on file documented as of this encounter Plan of Treatment Not on file documented as of this encounter Visit Diagnoses Not on filedocumented in this encounter Care Teams Teen Counselor Relationship Specialty Start Date End Date Kit Carmen PA-C [facility] [address] [place], [place] [phone] PCP - General Physician Countersinker 08/24/17 documented as of this encounter
--- OUTSIDE RECORDS SUMMARY | 2024-03-16 17:59 | XMS_ITS | Clinical Summary ---
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 10 tablet 02/20/2024 Active Encounters Date Type Department Care Team Description 02/20/2024 12:37 AM [facility] - 02/20/2024 2:35 AM [facility] Emergency [facility] Emergency Dept [address] [place] [address] Vinod Ellis MD Vomiting, unspecified vomiting type, unspecified whether nausea present; Other cirrhosis of liver (H); Acute pancreatitis, unspecified complication status, unspecified pancreatitis type; Abnormal LFTs; Tachycardia Discharge Disposition: Home or Self Care 02/19/2024 Travel from Last 3 Months Family History Medical History Relation Comments Breast Cancer No family hx of Ovarian Cancer No family hx of Social History Tobacco Use Types Packs/Day Years Used Date Smoking Tobacco: Never Assessed Adolescent Education Answer Date Record ed Getting School Help Needed Not on file 11/22 Comments Unknown Sex and Gender Information Value Date Recorded Sex Assigned at Not on file Legal Sex Female 3:27 AM [facility] Gender Identity Not on file Sexual Orientation Not on file Last Filed Vital Signs Vital Sign Reading Time Taken Comments Blood Pressure 127/81 02/20/2024 1:05 AM [facility] Pulse 115 02/20/2024 1:05 AM [facility] Temperature 37.3 C (99.1 F) 02/19/2024 8:40 PM [facility] Respiratory Rate 20 02/19/2024 8:40 PM [facility] Oxygen Saturation 99% 02/20/2024 1:05 AM [facility] Inhaled Oxygen Concentration - - Weight 58.6 kg (129 lb 3 oz) 02/19/2024 8:40 PM [facility] Height 167.6 cm (5' 6) 02/19/2024 8:40 PM [facility] Body Mass Index 20.85 02/19/2024 8:40 PM [facility] Plan of Treatment Health Maintenance Due Date Last Done Comments ADVANCE CARE PLANNING 1975 ANNUAL REVIEW OF HM ORDERS 1975 CT COLONOGRAPHY 1975 FIT 1975 FLEX SIG 1975 COLONOSCOPY 12/01/1985 HIV SCREENING 12/01/1990 HEPATITIS C SCREENING 12/01/1993 HEPATITIS A IMMUNIZATION (1 of 2 - Risk 2-dose series) 12/01/1994 HEPATITIS B IMMUNIZATION (1 of 3 - 19+ 3-dose series) 12/01/1994 Pneumococcal Vaccine: Pediatrics (0 to 5 Years) and At-Risk Patients (6 to 49 Years) (1 of 2 - PCV) 12/01/1994 LIPID 2015 COVID-19 Vaccine ( season) 2023 12/27/2020, 05/30/2020, 05/09/2020 INFLUENZA VACCINE (#1) 2023 PHQ-2 (once per calendar year) 2024 YEARLY PREVENTIVE VISIT 04/12/2024 04/12/2023, 11/26 MAMMO SCREENING 09/09/2024 09/09/2022, 04/2 10/2021, 02/12/2020, Additional history exists PAP 11/26/2024 11/26/2021 COLORECTAL CANCER SCREENING 12/11/2024 sDNA (Cologuard) 12/11/2024 12/11/2021, 12/11/2021 DTAP/TDAP/TD IMMUNIZATION (3 - Td or Tdap) 04/28/2026 04/28/2016, 06/22/2006 GLUCOSE 02/18/2027 02/19/2024, 01/23/2009 RSV VACCINE (1 - 1-dose 75+ series) 12/01/2050 HPV IMMUNIZATION Aged Out No longer e ligible based on patient's age to complete this topic MENINGITIS IMMUNIZATION Aged Out No l onger eligible based on patient's age to complete this topic RSV MONOCLONAL ANTIBODY Aged Out No l onger eligible based on patient's age to complete this topic Procedures Procedure Name Priority Date/Time Associated Diagnosis Comments CT ABDOMEN PELVIS W CONTRAST STAT 02/19/2024 11:13 PM [facility] CBC WITH PLATELETS & DIFFERENTIAL STAT 02/19/2024 8:53 PM [facility] HEMOGLOBIN A1C Add-On 02/19/2024 8:53 PM [facility] LIPASE STAT 02/19/2024 8:53 PM [facility] CBC WITH PLATELETS AND DIFFERENTIAL STAT 02/19/2024 8:53 PM [facility] EXTRA BLUE TOP TUBE STAT 02/19/2024 8 :53 PM [facility] COMPREHENSIVE METABOLIC PANEL STAT 02/19/2024 8:53 PM [facility] HCG QUALITATIVE STAT 02/19/2024 8:53 PM [facility] EXTRA TUBE STAT 02/19/2024 8:53 PM [facility] MA DIAGNOSTIC WITH IMPLANTS BILATERAL W/ ARI Routine 09/09/2022 10:57 AM CDT Subareolar mass of left breast from Last 3 Months or Most Recently Relevant to Health Maintenance Results * CT Abdomen Pelvis w Contrast (02/19/2024 11:13 PM [facility]) Anatomical Region Laterality Modality Abdomen/Pelvis, SUBRAD CT RUPERTO DY, UMP CT ABDOMEN PELVIS, RAD CT Computed Tomography 02/19/2024 11:1 3 PM [facility] Impressions 02/19/2024 11:39 PM [facility] IMPRESSION: 1. No acute findings or inflammatory changes in the abdomen or pelvis. 2. Morphologic changes of cirrhosis. Small abdominal varices, including patent periumbilical vein and gastroesophageal varices, suggesting portal hypertension. Trace pelvic ascites. Narrative 02/19/2024 11:39 PM [facility] EXAM: CT ABDOMEN PELVIS W CONTRAST LOCATION: [facility] DATE: 02/19/2024 INDICATION: Recurrent abdominal pain, bloody [...] EXAM: CT ABDOMEN PELVIS W CONTRAST LOCATION: [facility] DATE: 02/19/2024 INDICATION: Recurrent abdominal pain, bloody [...] gastroesophageal varices, suggesting portalhypertension. Trace pelvic ascites. us Brody Richards MD IMG CT ORDERABLES Final Resu lt * Extra Blue Top Tube (02/19/2024 8:53 PM [facility]) [facility] Hold Specimen [facility] 02/19/2024 10:31 PM [facility] LABORATORY Blood BLOOD SPECIMEN / Unknown Venipuncture / Unknown 02/19/2024 8:53 PM [facility] 02/19/2024 9:18 PM [facility] us Vinod Ellis MD LAB - BLOOD ORDERABLES Final Result [facility] [address] [facility] Lab (1st floor, no room number) [place] [address], [facility] * (ABNORMAL) CBC with platelets and differential (02/19/2024 8:53 PM [facility]) [facility] WBC Count 11.3(H) 4.0 - 11.0 10e3/uL 02/19/2024 9:26 PM [facility] LABORATORY RBC Count 3.50(L) 3.80 - 5.20 10e6/uL 02/19/2024 9:26 PM [facility] Hemoglobin 11.7 11.7 - 15.7 g/dL 02/19/2024 9:26 PM [facility] Hematocrit 34.8(L) 35.0 - 47.0 % 02/19/2024 9:26 PM [facility] MCV 99 78 - 100 fL 02/19/2024 9:26 PM [facility] MCH 33.4(H) 26.5 - 33.0 pg 02/19/2024 9:26 PM [facility] MCHC 33.6 31.5 - 36.5 g/dL 02/19/2024 9:26 PM [facility] RDW 14.2 10.0 - 15.0 % 02/19/2024 9:26 PM [facility] Platelet Count 171 150 - 450 10e3/uL 02/19/2024 9:26 PM [facility] % Neutrophils 79 % 02/19/2024 9:26 PM [facility] % Lymphocytes 13 % 02/19/2024 9:26 PM [facility] % Monocytes 7 % 02/19/2024 9:26 PM [facility] % Eosinophils 0 % 02/19/2024 9:26 PM [facility] % Basophils 1 % 02/19/2024 9:26 PM [facility] % Immature Granulocytes 0 % 02/19/2024 9:26 PM [facility] NRBCs per 100 WBC 0 <1 /100 024 9:26 PM [facility] Absolute Neutrophils 8.9(H) 1.6 - 8.3 10e3/uL 02/19/2024 9:26 PM [facility] Absolute Lymphocytes 1.4 0.8 - 5.3 10e3/uL 02/19/2024 9:26 PM [facility] Absolute Monocytes 0.7 0.0 - 1.3 10e3/uL 02/19/2024 9:26 PM [facility] Absolute Eosinophils 0.0 0.0 - 0.7 10e3/uL 02/19/2024 9:26 PM [facility] Absolute Basophils 0.1 0.0 - 0.2 10e3/uL 02/19/2024 9:26 PM [facility] Absolute Immature Granulocytes 0.0 <=0.4 10e3/uL 02/19/2024 9:26 PM [facility] Absolute NRBCs 0.0 10e3/uL 02/19/2024 9:26 PM [facility] Blood BLOOD SPECIMEN / Unknown Venipuncture / Unknown 02/19/2024 8:53 PM [facility] 02/19/2024 9:18 PM [facility] Brody Richards MD LAB - BLOOD ORDERABLES Final Result LABORATORY [facility] [address] Lab (1st floor, no room number) [address] * (ABNORMAL) Lipase (02/19/2024 8:53 PM [facility]) [facility] Lipase 347(H) 13 - 60 U/L 02/20/2024 2:11 AM [facility] LABORATORY Blood BLOOD SPECIMEN / Unknown Venipuncture / Unknown 02/19/2024 8:53 PM [facility] 02/19/2024 9:18 PM [facility] Vinod Ellis MD LAB - BLOOD ORDERABLES Final Result Performing Organization Address [facility]/ZIP Co de Phone Number [facility] [address] Lab (1st floor, no room number) [address] * Hemoglobin A1c (02/19/2024 8:53 PM [facility]) [facility] Estimated Average Glucose 108 <117 mg/dL 02/20/2024 2:39 AM [facility] Hemoglobin A1C 5.4 <5.7 % 02/20/2024 2:39 AM [facility] Comment: Normal <5.7% Prediabetes 5.7-6.4% Diabetes 6.5% or higher Note: Adopted from ADA consensus guidelines. Blood BLOOD SPECIMEN / Unknown Venipuncture / Unknown 02/19/2024 8:53 PM [facility] 02/19/2024 9:18 PM [facility] Vinod Ellis MD LAB - BLOOD ORDERABLES Final Result [facility] [address] Lab (1st floor, no room number) [address] * HCG QUALitative (blood) (02/19/2024 8:53 PM [facility]) [facility] hCG Serum Qualitative Negative Negative NOHEMI 02/19/2024 10:00 PM [facility] Comment:This test is for scr eening purposes. Results should be interpreted along with the clinical picture. Confirmation testing is available if warranted by ordering [id number], HCG Quantitative . Blood BLOOD SPECIMEN / Unknown Venipuncture / Unknown 02/19/2024 8:53 PM [facility] 02/19/2024 9:18 PM [facility] Brody Richards MD LAB - BLOOD ORDERABLES Final Result LABORATORY [facility] [address] Lab (1st floor, no room number) [place] [address], [facility] * (ABNORMAL) Comprehensive metabolic panel (02/19/2024 8:53 PM [facility]) Sodium 135 135 - 145 mmol/L 02/19/2024 9:43 PM [facility] Potassium 4.1 3.4 - 5.3 mmol/L 02/19/2024 9:43 PM [facility] Carbon Dioxide (CO2) 19(L) 22 - 29 mmol/L 02/19/2024 9:43 PM [facility] Anion Gap 21(H) 7 - 15 mmol/L 02/19/2024 9:43 PM [facility] Urea Nitrogen 10.0 6.0 - 20.0 mg/dL 02/19/2024 9:43 PM [facility] Creatinine 0.65 0.51 - 0.95 mg/dL 02/19/2024 9:43 PM [facility] GFR Estimate >90 >60 mL/min/1.7 3m2 02/19/2024 9:43 PM [facility] Comment:eGFR calculated usin 2020 CKD-EPI equation. Calcium 9.7 8.8 - 10.4 mg/dL 02/19/2024 9:43 PM [facility] Comment:Reference intervals for this test were updated on 09/07/2023 to reflect our healthy population more accurately. There may be differences in the flagging of prior results with similar values performed with this method. Those prior results can be interpreted in the context of the updated reference intervals. Chloride 95(L) 98 - 107 mmol/L 02/19/2024 9:43 PM [facility] Glucose 144(H) 70 - 99 mg/dL 02/19/2024 9:43 PM [facility] Alkaline Phosphatase 153(H) 40 - 150 U/L 02/19/2024 9:43 PM [facility] AST 216(H) 0 - 45 U/L 02/19/2024 9:43 PM [facility] ALT 44 0 - 50 U/L 02/19/2024 9:43 PM [facility] Protein Total 8.6(H) 6.4 - 8.3 g/dL 02/19/2024 9:43 PM [facility] Albumin 3.8 3.5 - 5.2 g/dL 02/19/2024 9:43 PM [facility]ORY Bilirubin Total 4.0(H) <=1.2 mg/dL 02/19/2024 9:43 PM [facility] Blood BLOOD SPECIMEN / Unknown Venipuncture / Unknown 02/19/2024 8:53 PM [facility] 02/19/2024 9:18 PM [facility] us Brody Richards MD LAB - BLOOD ORDERABLES Final Result LABORATORY [facility] [address] [facility] Lab (1st floor, no room number) [place] [address] * [place] Diagnostic with Implants [...] Most Recently Relevant to Health Maintenance Insurance 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
--- OUTSIDE RECORDS SUMMARY | 2024-03-16 17:59 | XMS_ITS | Encounter Summary ---
Author Organization [facility] Address [address] [place] [id number] Care Team Providers Care French Comber Name Role Phone Kit Carmen PA-C Primary Care Provider Reason for Visit * Reason Comments Abdominal Pain Nausea & Vomiting Encounter Details Date Type Department Care Team (Late st Contact Info) Description 02/20/2024 12:37 AM DEOILING MACHINE OPERATOR - 02/20/2024 2:35 AM DEOILING MACHINE OPERATOR Emergency [facility] Emergency Dept [address] [place] [id number] [phone] Vinod Ellis MD [facility] [address] [place], [place] [id number] Vomiting, unspecified vomiting type, unspecified whether nausea present; Other cirrhosis of liver (H); Acute pancreatitis, unspecified complication status, unspecified pancreatitis type; Abnormal LFTs; Tachycardia Discharge Disposition: Home or Self Care Social History Tobacco Use Types Packs/Day Years Used Date Smoking Tobacco: Never Assessed Adolescent Education Answer Date Record ed Getting School Help Needed Not on file 11/22 Comments Unknown Sex and Gender Information Value Date Recorded Sex Assigned at Not on file Legal Sex Female 3:27 AM DEOILING MACHINE OPERATOR Gender Identity Not on file Sexual Orientation Not on file documented as of this encounter Last Filed Vital Signs Vital Sign Reading Time Taken Comments Blood Pressure 127/81 02/20/2024 1:05 AM DEOILING MACHINE OPERATOR Pulse 115 02/20/2024 1:05 AM DEOILING MACHINE OPERATOR Temperature 37.3 C (99.1 F) 02/19/2024 8:40 PM DEOILING MACHINE OPERATOR Respiratory Rate 20 02/19/2024 8:40 PM DEOILING MACHINE OPERATOR Oxygen Saturation 99% 02/20/2024 1:05 AM DEOILING MACHINE OPERATOR Inhaled Oxygen Concentration - - Weight 58.6 kg (129 lb 3 oz) 02/19/2024 8:40 PM DEOILING MACHINE OPERATOR Height 167.6 cm (5' 6) 02/19/2024 8:40 PM DEOILING MACHINE OPERATOR Body Mass Index 20.85 02/19/2024 8:40 PM DEOILING MACHINE OPERATOR documented in this encounter Discharge Instructions * Discharge Instructions* Vinod Ellis MD - 02/20/2024 2:23 AM DEOILING MACHINE OPERATOR Discharge Instructions Vomiting You have been seen today for vomiting (throwing up). This is usually caused by a virus, but some bacteria, parasites, medicines or other medical conditions can cause similar symptoms. At this time your provider does not find that your vomiting is a sign of anything dangerous or life-threatening. However, sometimes the signs of serious illness do not show up right away. If you have new or worse symptoms, you may need to be seen again in the Emergency Department or by your primary provider. Remember that serious problems like appendicitis can start as vomiting. Generally, every Emergency Department visit should have a follow-up clinic visit with either a primary or a specialty clinic/provider. Please follow-up as instructed by your emergency provider today. Return to the Emergency Department if: You keep vomiting and you are not able to keep liquids down. You feel you are getting dehydrated, such as being very thirsty, not urinating (peeing) at least every 8-12 hours, or feeling faint or lightheaded. You develop a new fever, or your fever continues for more than 2 days. You have abdominal (belly pain) that seems worse than cramps, is in one spot, or is getting worse over time. Appendicitis usually causes pain in the right lower abdomen (to the right and below your belly button) so watch for pain in this location. You have blood in your vomit or stools. You feel very weak. You are not starting to improve within 24 hours of your visit here. What can I do to help myself? The most important thing to do is to drink clear liquids. If you have been vomiting a lot, it is best to have only small, frequent sips of liquids. Drinking too much at once may cause more vomiting. If you are vomiting often, you must replace minerals, sodium and potassium lost with your illness. Pe dialyte?? is the best available rehydration liquid but some find that it doesn???t taste good so sports drinks are an alterative. You can also drink clear liquids such as water, weak tea, apple juice, and 7-Up??. Avoid acid liquids (orange), caffeine (coffee) or alcohol. Do not drink milk until youno longer have diarrhea (loose stools). After liquids are staying down, you may start eating mild foods. Soda crackers, toast, plain noodles, gelatin, applesauce and bananas are good first choices. Avoid foods that have acid, are spicy, fatty or have a lot of fiber (such as meats, coarse grains, vegetables). You may start eating these foods again in about 3 days when you are better. Sometimes treatment includes prescription medicine to prevent nausea (sick to your stomach) and vomiting. If your provider prescribes these for you, take them as directed. Do not take ibuprofen, naproxen, or other nonsteroidal anti-inflammatory (NSAID) medicines without checking with your healthcare provider. If you were given a prescription for medicine here today, be sure to read all of the information (including the package insert) that comes with your prescription. This will include important information about the medicine, its side effects, and any warnings that you need to know about. The pharmacist who fills the prescription can provide more information and answer questions you may have about the medicine. If you have questions or concerns that the pharmacist cannot address, please call or return to the Emergency Department. Remember that you can always come back to the Emergency Department if you are not able to see your regular provider in the amount of time listed above, if you get any new symptoms, or if there is anything that worries you. LING MACHINE OPERATOR LING MACHINE OPERATOR * Attachments The following attachments cannot be sent through Care Everywhere. * Cirrhosis (American) * Pancreatitis (American) documented in this encounter Medications at Time of Discharge ondansetron (ZOFRAN ODT) 4 MG ODT tab Take 1 tablet (4 mg) by mouth every 8 hours as needed for nausea or vomiting. 10 tablet 02/20/2024 documented as of this encounter ED Notes * Vinod Ellis MD - 02/20/2024 12:57 AM CST Emergency Department Note History of Present Illness Chief Complaint Abdominal Pain and Nausea & Vomiting HPI Lia Banerjee is a 48 year old female who presents to the ER for evaluation of intractable nausea and vomiting today. She reports greater than 16 episodes of bilious emesis with some red material intermixed today. No diarrhea. No significant abdominal pain currently. No fevers. She drinks about 2 to 3 glasses of wine nightly but denies history of alcohol withdrawal. She does not take Tylenol regularly. No other drug use. She reports that she has been following [facility] as well as a liver specialist through [facility] regarding abnormal LFTs and her GI symptoms. She reports having episodes of vomiting every month or so but this is the second episode like this in the past 4 weeks. Pt reports historyof resting tachycardia. Review of External Notes Endoscopy note 11/12/23: Preliminary Plan: Recommendation Comments: Presence of portal hypertensive gastropathy might suggest underlying chronic liver disease. Please follow-up in the liver clinic as scheduled on 11/15/2023 Pathology Results: A: DUODENUM, BIOPSY: 1. Normal duodenal mucosa 2. Negative for celiac disease and other enteropathy B: STOMACH, BIOPSY: 1. Antral and body mucosae with subtle vascular changes consistent with the endoscopic impression of portal hypertensive gastropathy (see comment) 2. Negative for Helicobacter C: ESOPHAGUS, DISTAL, BIOPSY: 1. Normal squamous mucosa 2. Negative for reflux changes and eosinophilic esophagitis 3. Negative for columnar mucosa COMMENTS B. The endoscopic impression of portal hypertensive gastropathy (PHG) is noted. As this process more severely affects submucosal vessels, this condition is primarily an endoscopic diagnosis. However,the mucosal vessels here show subtle changes that further support this diagnosis. Past Medical History Medical History and Problem List No past medical history on file. Medications ondansetron (ZOFRAN ODT) 4 MG ODT tab Surgical History No past surgical history on file. Physical Exam Patient Vitals for the past 24 hrs: BP Temp Temp src Pulse Resp SpO2 Height Weight 02/20/24 0105 127/81 -- -- 115 -- 99 % -- -- 02/19/242039 123/83 99.1 ??F (37.3 ??C) Oral (!) 125 20 99 % 1.676 m (5' 6) 58.6 kg (129 lb 3 oz) Physical Exam VS: Reviewed per above HENT: Mucous membranes moist EYES: sclera anicteric CV: Rate as noted, regular rhythm. RESP: Effort normal. Breath sounds are normal bilaterally. GI: no reproducible tenderness/rebound/guarding, not distended. NEURO: Alert, moving all extremities MSK: No deformity of the extremities SKIN: Warm and dry Diagnostics Lab Results Labs Ordered and Resulted from Time of ED Arrival to Time of ED Departure COMPREHENSIVE METABOLIC PANEL - Abnormal Result Value Sodium 135 Potassium 4.1 Carbon Dioxide (CO2) 19 (*) Anion Gap 21 (*) Urea Nitrogen 10.0 Creatinine 0.65 GFR Estimate >90 Calcium 9.7 Chloride 95 (*) Glucose 144 (*) Alkaline Phosphatase 153 (*) AST 216 (*) ALT 44 Protein Total 8.6 (*) Albumin 3.8 Bilirubin Total 4.0 (*) CBC WITH PLATELETS AND DIFFERENTIAL - Abnormal WBC Count 11.3 (*) RBC Count 3.50 (*) Hemoglobin 11.7 Hematocrit 34.8 (*) MCV 99 MCH 33.4 (*) MCHC 33.6 RDW 14.2 Platelet Count 171 % Neutrophils 79 % Lymphocytes 13 % Monocytes 7 % Eosinophils 0 % Basophils 1 % Immature Granulocytes 0 NRBCs per 100 WBC 0 Absolute Neutrophils 8.9 (*) Absolute Lymphocytes 1.4 Absolute Monocytes 0.7 Absolute Eosinophils 0.0 Absolute Basophils 0.1 Absolute Immature Granulocytes 0.0 Absolute NRBCs 0.0 LIPASE - Abnormal Lipase 347 (*) HCG QUALITATIVE - Normal hCG Serum Qualitative Negative Imaging CT Abdomen Pelvis w Contrast Final Result IMPRESSION: 1. No acute findings or inflammatory changes in the abdomen or pelvis. 2. Morphologic changes of cirrhosis. Small abdominal varices, including patent periumbilical vein and gastroesophageal varices, suggesting portal hypertension. Trace pelvic ascites. ED Course Medications Administered Medications ondansetron (ZOFRAN) injection 4 mg (4 mg Intravenous $Given 02/19/242047) iopamidol (ISOVUE-370) solution 65 mL (65 mLs Intravenous $Given 02/19/242307) sodium chloride 0.9 % bag 500mL for CT scan flush use (56 mLs Intravenous $Given 02/19/242306) sodium chloride 0.9% BOLUS 1,000 mL (0 mLs Intravenous Stopped 02/20/24227) LORazepam (ATIVAN) tablet 1 mg (1 mg Oral $Given 02/20/24 011) pantoprazole (PROTONIX) IV push injection 40 mg (40 mg Intravenous $Given 02/20/24 011) Procedures Procedures ED Course ED Course as of 02/20/24 0716 Sun Feb 20, 2024 [address] [place]ano [place] 0130 12/15 visit per [facility] discussion of etoh hepatitis hx. Labs 11/15 bilirubin was 2.4, AST 173, ALT 47, Alk phos [address] Solano- if CT without biliary dilatation unlikely biliary obstruction Medical Decision Making / Diagnosis MDM Lia Banerjee is a 48 year old female who presents to the ER for evaluation of intractable nausea and vomiting today. On arrival she has regular tachycardia. She is afebrile and normotensive. Abdominal exam is benign. Labs reveal evidence of transaminitis and bilirubin elevation and lipase elevation and signs of mild anion gap acidosis thought secondary to dehydration. CT abdomen pelvis reveals trace ascites, small abdominal varices and findings of cirrhosis. [facility] In the absence of biliary pathology on CT, they do not feel that currentLFT derangement is related to biliary obstruction. They felt it more likely related to underlying alcoholic changes. On reassessment, patient is tolerating p.o. and feeling better after antiemetics and IV fluids. Heart rate is still tachycardic but improved. Discussed that we could certainly admit her for further fluid resuscitation and correction of laboratory derangements and monitoring of LFTs. Ultimately, patient preferred discharge home. Discussed importance of alcohol cessation and dietary changes in the initial stages of pancreatitis. Recommended close GI follow-up and strict return precautions. Disposition The patient was discharged. Diagnosis ICD-10-CM 1. Vomiting, unspecified vomiting type, unspecified whether nausea present R11.10 2. Other cirrhosis of liver (H) K74.69 3. Acute pancreatitis, unspecified complication status, unspecified pancreatitis type K85.90 4. Abnormal LFTs R79.89 5. Tachycardia R00.0 Discharge Medications Discharge Medication List as of 02/20/2024 2:28 AM START taking these medications Details ondansetron (ZOFRAN ODT) 4 MG ODT tab Take 1 tablet (4 mg) by mouth every 8 hours as needed for nausea or vomiting., Disp-10 tablet, R-0, E-Prescribe Vinod Ellis MD 02/20/24 0719 LING MACHINE OPERATOR * Ashlee Schmitz, RN - 02/19/2024 8:26 PM CST Pt arrives w/ c/o mid to low abdominal pain and vomiting since this morning. Pt unable to keep foodor fluids down and noticed a scant amount of blood in 2 of the episodes of emesis. Pt is on wegovy,seen by mngi and had endoscopy/biopsy done which came back normal. Reports feeling like something is stuck. Pt endorses that this happens every month. Endorses 1-2 glasses of wine every night. Tachycardic in triage, other VSS. LING MACHINE OPERATOR LING MACHINE OPERATOR documented in this encounter Plan of Treatment Not on file documented as of this encounter Procedures Procedure Name Priority Date/Time Associated Diagnosis Comments CT ABDOMEN PELVIS W CONTRAST STAT 02/19/2024 11:13 PM DEOILING MACHINE OPERATOR EXTRA TUBE STAT 02/19/2024 8:53 PM DEOILING MACHINE OPERATOR EXTRA BLUE TOP TUBE STAT 02/19/2024 8 :53 PM DEOILING MACHINE OPERATOR CBC WITH PLATELETS AND DIFFERENTIAL STAT 02/19/2024 8:53 PM DEOILING MACHINE OPERATOR CBC WITH PLATELETS & DIFFERENTIAL STAT 02/19/2024 8:53 PM DEOILING MACHINE OPERATOR LIPASE STAT 02/19/2024 8:53 PM DEOILING MACHINE OPERATOR HEMOGLOBIN A1C Add-On 02/19/2024 8:53 PM DEOILING MACHINE OPERATOR HCG QUALITATIVE STAT 02/19/2024 8:53 PM DEOILING MACHINE OPERATOR COMPREHENSIVE METABOLIC PANEL STAT 02/19/2024 8:53 PM DEOILING MACHINE OPERATOR documented in this encounter Results * CT Abdomen Pelvis w Contrast (02/19/2024 11:13 PM DEOILING MACHINE OPERATOR) Anatomical Region Laterality Modality Abdomen/Pelvis, SUBRAD CT RUPERTO DY, UMP CT ABDOMEN PELVIS, RAD CT Computed Tomography 02/19/2024 11:1 3 PM DEOILING MACHINE OPERATOR Impressions 02/19/2024 11:39 PM DEOILING MACHINE OPERATOR IMPRESSION: 1. No acute findings or inflammatory changes in the abdomen or pelvis. 2. Morphologic changes of cirrhosis. Small abdominal varices, including patent periumbilical vein and gastroesophageal varices, suggesting portal hypertension. Trace pelvic ascites. Narrative 02/19/2024 11:39 PM DEOILING MACHINE OPERATOR EXAM: CT ABDOMEN PELVIS W CONTRAST LOCATION: [facility] DATE: 02/19/2024 INDICATION: Recurrent abdominal pain, bloody [...] EXAM: CT ABDOMEN PELVIS W CONTRAST LOCATION: [facility] DATE: 02/19/2024 INDICATION: Recurrent abdominal pain, bloody [...] portalhypertension. Trace pelvic ascites. Brody Richards MD [facility] [place]LES Final Resu lt * Hemoglobin A1c (02/19/2024 8:53 PM DEOILING MACHINE OPERATOR) Estimated Average Glucose 108 <117 mg/dL 02/20/2024 2:39 AM DEOILING MACHINE OPERATOR LABORATORY Hemoglobin A1C 5.4 <5.7 % 02/20/2024 2:39 AM DEOILING MACHINE OPERATOR LABORATORY Comment: Normal <5.7% Prediabetes 5.7-6.4% Diabetes 6.5% or higher Note: Adopted from ADA consensus guidelines. Blood BLOOD SPECIMEN / Unknown Venipuncture / Unknown 02/19/2024 8:53 PM DEOILING MACHINE OPERATOR 02/19/2024 9:18 PM DEOILING MACHINE OPERATOR Vinod Ellis MD LAB - BLOOD ORDERABLES Final Result LABORATORY [facility] [address] Lab (1st floor, no room number) [address] * (ABNORMAL) Lipase (02/19/2024 8:53 PM DEOILING MACHINE OPERATOR) Pathologist [facility] Lipase 347(H) 13 - 60 U/L 02/20/2024 2:11 AM DEOILING MACHINE OPERATOR [facility] LABORATORY Blood BLOOD SPECIMEN / Unknown Venipuncture / Unknown 02/19/2024 8:53 PM DEOILING MACHINE OPERATOR 02/19/2024 9:18 PM DEOILING MACHINE OPERATOR Vinod Ellis MD LAB - BLOOD ORDERABLES Final Result Performing Organization Address City/[facility]/ZIP Co de Phone Number LABORATORY [facility] [address] Lab (1st floor, no room number) [address] * (ABNORMAL) CBC with platelets and differential (02/19/2024 8:53 PM DEOILING MACHINE OPERATOR) WBC Count 11.3(H) 4.0 - 11.0 10e3/uL 02/19/2024 9:26 PM DEOILING MACHINE OPERATOR [facility] LABORATORY RBC Count 3.50(L) 3.80 - 5.20 10e6/uL 02/19/2024 9:26 PM DEOILING MACHINE OPERATOR [facility] LABORATORY Hemoglobin 11.7 11.7 - 15.7 g/dL 02/19/2024 9:26 PM DEOILING MACHINE OPERATOR [facility] LABORATORY Hematocrit 34.8(L) 35.0 - 47.0 % 02/19/2024 9:26 PM DEOILING MACHINE OPERATOR [facility] LABORATORY MCV 99 78 - 100 fL 02/19/2024 9:26 PM DEOILING MACHINE OPERATOR [facility] LABORATORY MCH 33.4(H) 26.5 - 33.0 pg 02/19/2024 9:26 PM DEOILING MACHINE OPERATOR [facility] LABORATORY MCHC 33.6 31.5 - 36.5 g/dL 02/19/2024 9:26 PM DEOILING MACHINE OPERATOR [facility] LABORATORY RDW 14.2 10.0 - 15.0 % 02/19/2024 9:26 PM DEOILING MACHINE OPERATOR [facility] LABORATORY Platelet Count 171 150 - 450 10e3/uL 02/19/2024 9:26 PM DEOILING MACHINE OPERATOR [facility] LAB[facility]AT[facility] % Neutrophils 79 % 02/19/2024 9:26 PM DEOILING MACHINE OPERATOR [facility] LAB[facility]AT[facility] % Lymphocytes 13 % 02/19/2024 9:26 PM DEOILING MACHINE OPERATOR [facility] LAB[facility]AT[facility] % Monocytes 7 % 02/19/2024 9:26 PM DEOILING MACHINE OPERATOR [facility] LABORAT[facility] % Eosinophils 0 % 02/19/2024 9:26 PM DEOILING MACHINE OPERATOR [facility] LAB[facility]AT[facility] % Basophils 1 % 02/19/2024 9:26 PM DEOILING MACHINE OPERATOR [facility] LAB[facility]AT[facility] % Immature Granulocytes 0 % 02/19/2024 9:26 PM DEOILING MACHINE OPERATOR [facility] LABORATORY NRBCs per 100 WBC 0 <1 /100 024 9:26 PM DEOILING MACHINE OPERATOR [facility] LABORATORY Absolute Neutrophils 8.9(H) 1.6 - 8.3 10e3/uL 02/19/2024 9:26 PM DEOILING MACHINE OPERATOR [facility] LABORATORY Absolute Lymphocytes 1.4 0.8 - 5.3 10e3/uL 02/19/2024 9:26 PM DEOILING MACHINE OPERATOR [facility] LABORATORY Absolute Monocytes 0.7 0.0 - 1.3 10e3/uL 02/19/2024 9:26 PM DEOILING MACHINE OPERATOR [facility] LABORATORY Absolute Eosinophils 0.0 0.0 - 0.7 10e3/uL 02/19/2024 9:26 PM DEOILING MACHINE OPERATOR [facility] LABORATORY Absolute Basophils 0.1 0.0 - 0.2 10e3/uL 02/19/2024 9:26 PM DEOILING MACHINE OPERATOR [facility] LABORATORY Absolute Immature Granulocytes 0.0 <=0.4 10e3/uL 02/19/2024 9:26 PM DEOILING MACHINE OPERATOR [facility] LABORATORY Absolute NRBCs 0.0 10e3/uL 02/19/2024 9:26 PM DEOILING MACHINE OPERATOR [facility] LABORATORY Blood BLOOD SPECIMEN / Unknown Venipuncture / Unknown 02/19/2024 8:53 PM DEOILING MACHINE OPERATOR 02/19/2024 9:18 PM DEOILING MACHINE OPERATOR us Brody Richards MD LAB - BLOOD ORDERABLES Final Result [facility] LABORATORY [facility] [address] Lab (1st floor, no room number) [place] [address], [facility] * Extra Blue Top Tube (02/19/2024 8:53 PM DEOILING MACHINE OPERATOR) Hold Specimen JIC 02/19/2024 10:31 PM DEOILING MACHINE OPERATOR LABORATORY Blood BLOOD SPECIMEN / Unknown Venipuncture / Unknown 02/19/2024 8:53 PM DEOILING MACHINE OPERATOR 02/19/2024 9:18 PM DEOILING MACHINE OPERATOR us Vinod Ellis MD LAB - BLOOD ORDERABLES Final Result LABORATORY [facility] [address] [facility] Lab (1st floor, no room number) [place] [address] * (ABNORMAL) Comprehensive metabolic panel (02/19/2024 8:53 PM DEOILING MACHINE OPERATOR) Sodium 135 135 - 145 mmol/L 02/19/2024 9:43 PM [facility] Potassium 4.1 3.4 - 5.3 mmol/L 02/19/2024 9:43 PM [facility] Carbon Dioxide (CO2) 19(L) 22 - 29 mmol/L 02/19/2024 9:43 PM [facility] Anion Gap 21(H) 7 - 15 mmol/L 02/19/2024 9:43 PM [facility] Urea Nitrogen 10.0 6.0 - 20.0 mg/dL 02/19/2024 9:43 PM [facility] Creatinine 0.65 0.51 - 0.95 mg/dL 02/19/2024 9:43 PM [facility] GFR Estimate >90 >60 mL/min/1.7 3m2 02/19/2024 9:43 PM [facility] Comment:eGFR calculated usin 2020 CKD-EPI equation. Calcium 9.7 8.8 - 10.4 mg/dL 02/19/2024 9:43 PM [facility] Comment:Reference intervals for this test were updated on 09/07/2023 to reflect our healthy population more accurately. There may be differences in the flagging of prior results with similar values performed with this method. Those prior results can be interpreted in the context of the updated reference intervals. Chloride 95(L) 98 - 107 mmol/L 02/19/2024 9:43 PM [facility] Glucose 144(H) 70 - 99 mg/dL 02/19/2024 9:43 PM DEOILING MACHINE OPERATOR [facility] LABORATORY Alkaline Phosphatase 153(H) 40 - 150 U/L 02/19/2024 9:43 PM DEOILING MACHINE OPERATOR [facility] LABORATORY AST 216(H) 0 - 45 U/L 02/19/2024 9:43 PM DEOILING MACHINE OPERATOR [facility] LABORATORY ALT 44 0 - 50 U/L 02/19/2024 9:43 PM DEOILING MACHINE OPERATOR [facility] LABORATORY Protein Total 8.6(H) 6.4 - 8.3 g/dL 02/19/2024 9:43 PM DEOILING MACHINE OPERATOR [facility] LABORATORY Albumin 3.8 3.5 - 5.2 g/dL 02/19/2024 9:43 PM DEOILING MACHINE OPERATOR [facility] LABORATORY Bilirubin Total 4.0(H) <=1.2 mg/dL 02/19/2024 9:43 PM DEOILING MACHINE OPERATOR [facility] LABORATORY Blood BLOOD SPECIMEN / Unknown Venipuncture / Unknown 02/19/2024 8:53 PM DEOILING MACHINE OPERATOR 02/19/2024 9:18 PM DEOILING MACHINE OPERATOR Brody Richards MD LAB - BLOOD ORDERABLES Final Result Performing Organization Address City/[facility]/ZIP Co de Phone Number [facility] [address] Lab (1st floor, no room number) [place] [address], [facility] * HCG QUALitative (blood) (02/19/2024 8:53 PM DEOILING MACHINE OPERATOR) hCG Serum Qualitative Negative Negative NOHEMI 02/19/2024 10:00 PM DEOILING MACHINE OPERATOR [facility] LABORATORY Comment:This test is for scr eening purposes. Results should be interpreted along with the clinical picture. Confirmation testing is available if warranted by ordering [id number], HCG Quantitative . Blood BLOOD SPECIMEN / Unknown Venipuncture / Unknown 02/19/2024 8:53 PM DEOILING MACHINE OPERATOR 02/19/2024 9:18 PM DEOILING MACHINE OPERATOR Brody Richards MD LAB - BLOOD ORDERABLES Final Result [facility] [address] Lab (1st floor, no room number) [place] [address], [facility] documented in this encounter Visit Diagnoses Diagnosis Vomiting, unspecified vomiting type, unspecified whether nausea present Other cirrhosis of liver (H) Acute pancreatitis, unspecified complication status, unspecified pancreatitis type Abnormal LFTs Other abnormal blood chemistry Tachycardia Tachycardia, unspecified documented in this encounter Administered Medications Inactive Administered Medications - up to 3 most recent administrations Medication Order MAR Action Action Date Dose Rate Site iopamidol (ISOVUE-370) solution 65 mL 65 mL, Intravenous, ONCE, On 02/19/24 at 2305, For 1 dose $Given 02/19/2024 11:08 PM DEOILING MACHINE OPERATOR 65 mLs LORazepam (ATIVAN) tablet 1 mg 1 mg, Oral, ONCE, On 02/20/24 at 0115, For 1 dose $Given 02/20/2024 1:16 AM DEOILING MACHINE OPERATOR 1 mg ondansetron (ZOFRAN) injection 4 mg 4 mg, Intravenous, ONCE, Administer over 2-5 Minutes, On 02/19/24 at 2040, For 1 dose $Given 02/19/2024 8:48 PM DEOILING MACHINE OPERATOR 4 mg pantoprazole (PROTONIX) IV push injection 40 mg 40 mg, Intravenous, ONCE, On 02/20/24 at 0115, For 1 dose $Given 02/20/2024 1:16 AM DEOILING MACHINE OPERATOR 40 mg sodium chloride 0.9 % bag 500mL for CT scan flush use Intravenous, 56 mL, ONCE, On 02/19/24 at 2305, For 1 dose $Given 02/19/2024 11:07 PM DEOILING MACHINE OPERATOR 56 mLs sodium chloride 0.9% BOLUS 1,000 mL Intravenous, 1,000 mL, ONCE, at 1,000 mL/hr, Administer over 1 Hours, On 02/20/24 at 0115, For 1 dose $New Bag 02/20/2024 1:17 AM DEOILING MACHINE OPERATOR 1,000 mLs 1000 mL/hr documented in this encounter Active and Recently Administered Medications Times are shown in DEOILING MACHINE OPERATOR. Scheduled Medication Order 02/18/2024 02/19/2024 02/20/2024 iopamidol (ISOVUE-370) solution 65 mL (COMPLETED) 65 mL, Intravenous, ONCE, On 02/19/24 at 2305, For 1 dose 2308 ($Given - Provider: Mary Jane Saba) LORazepam (ATIVAN) tablet 1 mg (COMPLETED) 1 mg, Oral, ONCE, On 02/20/24 at 0115, For 1 dose 0116 ($Given - Provi kathy: Macrina Jacobo, VLAD) ondansetron (ZOFRAN) injection 4 mg (COMPLETED) 4 mg, Intravenous, ONCE, Administer over 2-5 Minutes, On 02/19/24 at 2040, For 1 dose 2048 ($Given - Provider: Ashlee Schmitz RN) pantoprazole (PROTONIX) IV push injection 40 mg (COMPLETED) 40 mg, Intravenous, ONCE, On 02/20/24 at 0115, For 1 dose 0116 ($Given - Provi kathy: Macrina Jacobo RN) sodium chloride 0.9 % bag 500mL for CT scan flush use (COMPLETED) Intravenous, 56 mL, ONCE, On 02/19/24 at 2305, For 1 dose 2307 ($Given - Provider: Mary Jane Saba) sodium chloride 0.9% BOLUS 1,000 mL (COMPLETED) Intravenous, 1,000 mL, ONCE, at 1,000 mL/hr, Administer over 1 Hours, On 02/20/24 at 0115, For 1 dose 0117 ($New Bag - Provider: Macrina Jacobo RN)0228 (Stopped - Provider: Ofelia August RN) documented in this encounter Care Teams French Comber Relationship Specialty Start Date End Date Kit Carmen, PAShannanC [facility] [address] [place] [address] PCP - General Physician Radio Time Buyer 08/24/17 documented as of this encounter
--- OUTSIDE RECORDS SUMMARY | 2024-03-16 18:00 | XMS_ITS | Clinical Summary ---
Author Organization [facility] Address [place], [place] [address] Care Team Providers Care Muffle Worker Name Role Phone Kit Carmen Primary Care Provider [phone] Allergies No known active allergies Medications progesterone micronized (PROMETRIUM) 200 mg capsule 1 tablet by mouth twice a day 0 02/28/19 16 Active TESTOSTERONE 2% IN EUCERIN CREAM ([facility] AMB MIX) Apply to back of the knees once daily 0 02/28/19 16 Active thyroid (ARMOUR THYROID) 90 mg tablet Take 1 tablet by mouth once daily. 0 07/02/19 19 Active cetirizine (ZYRTEC) 10 mg tablet Take 1 Tablet (10 mg) by mouth once daily. 06/07/19 24 Active ALPRAZolam (XANAX) 1 mg tabletIndications :Situational anxiety TAKE 0.5-1 TABLET BY MOUTH DAILY NEEDED FOR SITUATIONAL ANXIETY 15 Tablet 08/04/19 24 Active levothyroxine (SYNTHROID) 25 mcg tablet TAKE ONE TABLET BY MOUTH DAILY* 11/01/19 24 Active ondansetron (ZOFRAN ODT) 4 mg disintegrating tablet Take 4 mg by mouth every 8 hours if needed. 02/20/20 24 Active semaglutide, weight loss, (Wegovy) 1.7 mg/0.75 mL subcutaneous penIndications:Ov erweight Inject 1.7 mg subcutaneous once weekly. 9 mL 3 03/02/19 25 Active atorvastatin (LIPITOR) 20 mg tabletIndications :Hyperlipidemia, unspecified hyperlipidemia type Take 1 Tablet (20 mg) by mouth at bedtime. 90 Tablet 3 03/02/19 25 Active lisinopril-hydroc hlorothiazide 20-12.5 mg tablet (PRINZIDE)Indicat ions:Hypertension , unspecified type Take 1 Tablet by mouth once daily. 90 Tablet 3 03/02/19 25 Active metoprolol succinate (TOPROL XL) 25 mg Sustained-Release tabletIndications :Supraventricular tachycardia (HC),Hypertension , unspecified type Take 1 Tablet (25 mg) by mouth once daily. 90 Tablet 3 03/02/19 25 Active lisinopril-hydroc hlorothiazide 20-12.5 mg tablet (PRINZIDE)Indicat ions:Hypertension , unspecified type Take 1 Tablet by mouth once daily. 90 Tablet 3 04/12/19 24 025 Discontinu ed(Reorder (E-cancel not sent)) metoprolol succinate (TOPROL XL) 25 mg Sustained-Release tabletIndications :Supraventricular tachycardia (HC),Hypertension , unspecified type Take 1 Tablet (25 mg) by mouth once daily. 90 Tablet 3 04/12/19 24 025 Discontinu ed(Reorder (E-cancel not sent)) semaglutide, weight loss, (Wegovy) 1.7 mg/0.75 mL subcutaneous penIndications:Ov erweight Inject 1.7 mg subcutaneous once weekly. 3 mL 09/13/19 24 024 Discontinu ed(Duplica te therapy (E-cancel not sent)) semaglutide, weight loss, (Wegovy) 2.4 mg/0.75 mL subcutaneous penIndications:Ov erweight Inject 2.4 mg subcutaneous once weekly. 9 mL 1 10/18/19 24 025 Discontinu ed(*Patien t states no longer taking) atorvastatin (LIPITOR) 20 mg tabletIndications :Hyperlipidemia, unspecified hyperlipidemia type TAKE 1 TABLET BY MOUTH AT BEDTIME. 90 Tablet 1 11/03/19 24 025 Discontinu ed(Reorder (E-cancel not sent)) semaglutide, weight loss, (Wegovy) 1.7 mg/0.75 mL subcutaneous penIndications:Ov erweight Inject 1.7 mg subcutaneous once weekly. 3 mL 2 11/17/19 24 025 Discontinu ed(Reorder (E-cancel not sent)) Active Problems Problem Noted Date Diagnosed Date Other cirrhosis of liver 03/02/2024 Overweight 06/07/2023 Supraventricular tachycardia 04/12/2023 Pap smear for cervical cancer screening 01/07/20 22 Overview (01/06/2022): 11/2021 NIL/ HPV negative Plan: Pap/ HPV due 11/2026 Hyperlipidemia, unspecified 01/24/2019 Hypertension 02/01/2018 Old tear of medial meniscus of left knee 017 Situational anxiety 02/28/2015 Resolved Problems Problem Noted Date Diagnosed Date Resolved Date Supraventricular tachycardia 06/27/2018 06/07/2023 Overview (06/27/2018): Patient has been evaluated at [facility] and no underlying abnormality found. Patient has propranolol to use. Encounters Date Type Department Care Team Description 03/14/2024 Telephone [facility] Cancer [address] [place] [address] Rita Jameson 03/06/2024 Orders Only [facility] [id number] [place] [id number] Kit Carmen PA <No scans attached> 03/03/2024 8:20 AM SALES FORCE ADMINISTRATOR Ancillary Procedure Formerly [facility] [address] [facility] [address] [place] [address] 03/03/2024 Orders Only [facility] [id number] [place] [address] Kit Carmen PA <No scans attached> 03/02/2024 10:30 AM SALES FORCE ADMINISTRATOR Office Visit [address] [address] Kit Carmen PA Physical (Patient presents for physical- non fasting) 03/02/2024 Travel 02/29/[address] [address] Kit Carmen PA Medication Problem (Wegovy- wanting is to be prescribed by Kit) 02/16/2024 Refill [facility] [address] [place] [address] Kit Carmen PA Refill Request (Wegovy) from Last 3 Months Immunizations Name Administration Dates Next Due COVID-19 vaccine (Aircrm 30mcg/0.3mL) P F, MDV 05/30/2020,05/09/2020 Td, Preservative Free (age >= 7 Years) 7 Tdap 06/22/2006 Family History Medical History Relation Name Comments Cancer Father skin Hypertension Maternal Grandfather Stroke Maternal Grandfather Diabetes Maternal Grandmother Heart Disease Maternal Grandmother o f [place] Hypertension Maternal Grandmother Diabetes Maternal Uncle 1 Heart Disease Maternal Uncle 1 x 2 - [place] @ 40 & [place] @58 Diabetes Maternal Uncle 2 Hypertension Mother Cancer-colon Paternal Grandfather Hyperlipidemia Paternal Grandmother Hypertension Paternal Grandmother Good Health Sister Good Health Son x 2 Relation Name Status Comments Father Alive Maternal Grandfather Maternal Grandmother Maternal Uncle 1 Alive Maternal Uncle 2 Mother Alive Paternal Grandfather Paternal Grandmother Sister Alive Son x 2 Alive Social History Tobacco Use Types Packs/Day Years Used Date Smoking Tobacco: Never Smokeless Tobacco: Never Alcohol Use Standard Drinks/Week Comments Yes 7 (1 standard drink = 0.6 oz pur e alcohol) 1 glass of wine a night PHQ-2 Answer Date Recorded PHQ-2 TOTAL SCORE 0 03/02/2024 Social Connections Answer Date Recorded Frequency of Communication with Friends and Fami ly 0 09/03/2022 Financial Resource Strain Answer Date R ecorded Difficulty of Paying Living Expenses 3 09/03/2022 Difficulty of Paying Living Expenses Not on file 09/03/2022 Food Insecurity Answer Date Recorded Worried About Running Out of Food in the Last Ye ar 1 09/03/2022 Transportation Needs Answer Date Record ed Lack of Transportation (Medical) 1 09/03/2022 Housing Stability Answer Date Recorded Unable to Pay for Housing in the Last Year 1 09/03/2022 Comments No Sex and Gender Information Value Date Recorded Sex Assigned at Not on file Legal Sex Female 6:30 AM SALES FORCE ADMINISTRATOR Gender Identity Not on file Sexual Orientation Not on file Occupation Industry Job Start Date Job End Date unemployed - looking for work Not on file Not on file Not on file Obstetrics History Last Filed Vital Signs Vital Sign Reading Time Taken Comments Blood Pressure 104/64 03/02/2024 10:36 AM SALES FORCE ADMINISTRATOR Pulse 88 03/02/2024 10:36 AM SALES FORCE ADMINISTRATOR Temperature 36.4 C (97.5 F) 11/09/2023 11:31 AM CDT Respiratory Rate 14 11/09/2023 11:31 AM CDT Oxygen Saturation 96% 11/09/2023 11:31 AM CDT Inhaled Oxygen Concentration - - Weight 59.6 kg (131 lb 6.4 oz) 03/02/2024 10:36 AM SALES FORCE ADMINISTRATOR Height 167.6 cm (5' 6) 03/02/2024 10:36 AM SALES FORCE ADMINISTRATOR Body Mass Index 21.21 03/02/2024 10:36 AM SALES FORCE ADMINISTRATOR Plan of Treatment Health Maintenance Due Date Last Done Comments HIV for age 15-65 12/01/1990 Pneumococcal series for age 6-49 (1 of 2 - PCV) 12/01/1994 COVID-19 vaccine series ( season) 2023 12/27/2020, 05/30/2020, 05/09/2020 Influenza for age 9-49 10/24/2023 Fecal testing sDNA-FIT ([place] guard) for age 45-75 12/11/2024 12/11/2021 BMI (ht and wt on same day) for age 18+ 03/02/2025 03/02/2024, 06/07/2023, 01/05/2019, Additional history exists Depression screening for age 12+ 03/03/2025 03/03/2024, 03/03/2024, 03/02/2024, Additional history exists Mammogram for age 45-75 03/03/2025 03/03/19, 09/09/2022, 09/09/2022, Additional history exists Tetanus booster 04/28/2026 04/28/2016, 06/22/2006 Pap test for age 21-65 11/26/2026 , 11/26/2021, 04/20/2018, Additional history exists Lipids for age 45-75 03/02/2029 03/02/2024, 04/12/2023, 11/26/2021, Additional history exists Tdap Completed 06/22/2006 Hepatitis C screening for ag e 18-79 Completed 11/26/2021 Procedures Procedure Name Priority Date/Time Associated Diagnosis Comments XR MAMMO HEIDE BILAT SCREEN IMPLANT Routine 03/03/2024 8:38 AM SALES FORCE ADMINISTRATOR Encounter for screening mammogram for breast cancer LIPID PANEL W REFLEX MEASURED LDL Routine 03/02/2024 11:24 AM SALES FORCE ADMINISTRATOR Hyperlipidemia, unspecified hyperlipidemia type BASIC METABOLIC PANEL Routine 03/02/2024 11:24 AM SALES FORCE ADMINISTRATOR Hypertension SDNA-FIT EXTERNAL (COLOGUARD) Routine 12/11/2021 9:00 PM CDT Screening for colon cancer HPV HIGH RISK Routine 11/26/2021 9:52 AM CDT Pap smear for cervical cancer screening ANTI HCV Routine 11/26/2021 9:10 AM CDT Need for hepatitis C screening test from Last 3 Months or Most Recently Relevant to Health Maintenance Results * XR MAMMO HEIDE BILAT SCREEN IMPLANT (03/03/2024 8:38 AM SALES FORCE ADMINISTRATOR) Anatomical Region Laterality Modality BREASTS, Breast Left, Breast Right Bilateral Mammography Impressions 03/03/2024 11:45 AM SALES FORCE ADMINISTRATOR There is no radiographic evidence for malignancy. Recommend annual mammograms. MAMMOGRAM ASSESSMENT: ACR 2 Benign PATIENTS: You will also receive a letter with your examination results in an easy to read format. If you have questions about your results, please contact your referring provider. Narrative 03/03/2024 11:45 AM SALES FORCE ADMINISTRATOR For Patients: As a result of the Cures Act, medical imaging exams and procedure reports are released immediately into your electronic medical record. You may view this report before your referring provider. If you have questions, please contact your health care provider. XR MAMMO HEIDE BILAT SCREEN IMPLANT [[id number]] CLINICAL HISTORY: This is an asymptomatic 48 y.o. patient. INDICATION FOR EXAM: Mammogram Screening. TECHNIQUE: CC & MLO views were obtained. Implant displacement views were obtained. This study was evaluated with the assistance of Computer-Aided Detection. Breast Tomosynthesis was used in interpretation. COMPARISON FILMS: Yes 09/09/22 FINDINGS: The breasts are heterogeneously dense, which may obscure small masses. No suspicious masses or microcalcifications. There are breast implant(s) present.. Kit RESTREPO MAMMO Final Resul t * (ABNORMAL) LIPID PANEL W REFLEX MEASURED LDL (03/02/2024 11:24 AM SALES FORCE ADMINISTRATOR) CHOLESTEROL, TOTAL 462(H) <200 mg/dL [employer] [facility] [place] HDL CHOLESTEROL 37(L) > OR = 50 mg/dL [facility] TRIGLYCERIDES 267(H) <150 mg/dL [facility] Comment: If a non-fasting specimen was collected, consider repeat triglyceride testing on a fasting specimen if clinically indicated. Jody guadarrama al. J. of Clin. Lipidol. 2015;9:129-169. LDL-CHOLESTEROL >350(H) mg/dL (calc) [employer] [facility] [place] Comment: LDL-C levels > or = 190 mg/dL may indicate familial hypercholesterolemia (FH). Clinical assessment and measurement of blood lipid levels should be considered for all first degree relatives of patients with an FH diagnosis. LDL Cholesterol (LDL-C) levels > or = 300 mg/dL may indicate homozygous familial hypercholesterolemia (HoFH). Untreated, these extremely high LDL-C levels can result in premature CV events and mortality. Patients should be identified early and provided appropriate interventions to reduce the cumulative LDL-C burden from . For questions about testing for familial hypercholesterolemia, please call [facility] at .[email or web address]. Jody Atkins, et al. J National Lipid Association Recommendations for Patient-Centered Management of Dyslipidemia: Part 1 Journal of Clinical Lipidology 2015;9(2), 129-169. Kaushal Hernandez et al. (2014). Homozygous familial hypercholesterolaemia: new insights and guidance for clinicians to improve detection and clinical management. Heart Journal, 35(32), 1743-3432. Reference range: <100 Desirable range <100 mg/dL for primary prevention; <70 mg/dL for patients with CHD or diabetic patients with > or = 2 CHD risk factors. LDL-C is now calculated using the Mariama calculation, which is a validated novel method providing better accuracy than the Friedewald equation in the estimation of LDL-C. Anil ARREOLA et al. BJORN. 2013;310(19): 4454-2648 (http://education.Side.Cr/faq/OVW357) CHOL/HDLC RATIO 12.5(H) <5.0 (calc) [facility]- Abdi Fragoso NON HDL CHOLESTEROL 425(H) <130 mg/dL (calc) [facility]fmShannan Fragoso Comment: Non-HDL level > or = 220 is very high and may indicate genetic familial hypercholesterolemia (FH). Clinical assessment and measurement of blood lipid levels should be considered for all first-degree relatives of patients with an FH diagnosis. For patients with diabetes plus 1 major ASCVD risk factor, treating to a non-HDL-C goal of <100 mg/dL (LDL-C of <70 mg/dL) is considered a therapeutic option. Blood BLOOD SPECIMEN / Unknown 03/02/2024 11:24 AM SALES FORCE ADMINISTRATOR 03/02/2024 11:24 AM SALES FORCE ADMINISTRATOR Narrative [employer] - 03/06/2024 9:24 AM SALES FORCE ADMINISTRATOR FASTING:YES FASTING: YES Kit RESTREPO CHEMISTRY Final Resul t [employer] [facility] [address] [place] [address], [facility]St[facility] Center[facility] [address] [place] [address] * (ABNORMAL) BASIC METABOLIC PANEL (03/02/2024 11:24 AM SALES FORCE ADMINISTRATOR) Pathologist [facility] GLUCOSE 68 65 - 99 mg/dL [facility] Comment: Fasting reference interval UREA NITROGEN (BUN) 9 7 - 25 mg/dL [facility] talha Fragoso CREATININE 0.67 0.50 - 0.99 mg/dL [facility] tahla Fragoso EGFR 108 > OR = 60 mL/min/1. 73m2 [facility] BUN/CREATININE RATIO SEE NOTE: 6 - 22 (calc) [facility] Comment: Not Reported: BUN and Creatinine are within reference range. SODIUM 133(L) 135 - 146 mmol/L [facility] POTASSIUM 4.4 3.5 - 5.3 mmol/L [facility] CHLORIDE 100 98 - 110 mmol/L [facility] CARBON DIOXIDE 22 20 - 32 mmol/L [facility] ELECTROLYTE BALANCE 11 7 - 17 mmol/L (calc) [facility] CALCIUM 9.6 8.6 - 10.2 mg/dL [facility] Blood BLOOD SPECIMEN / Unknown 03/02/2024 11:24 AM SALES FORCE ADMINISTRATOR 03/02/2024 11:24 AM SALES FORCE ADMINISTRATOR Narrative [facility] - 03/03/2024 5:09 AM SALES FORCE ADMINISTRATOR FASTING:YES FASTING: YES Kit RESTREPO CHEMISTRY Final Resul t [employer] [facility] [address] [place] [address], [address] [address] * SDNA-FIT EXTERNAL (COLOGUARD) (12/11/2021 9:00 PM CDT) NONINV COLON CA DNA+OCC BLD SCRN STL-IMP Negative Negative 12/17/2021 4:48 PM CDT [facility] (CLIA #:[id number]) Comment: NEGATIVE TEST RESULT. A negative Cologuard result indicates a low likelihood that a colorectal cancer (CRC) or advanced adenoma (adenomatous polyps with more advanced pre-malignant features) is present. The chance that a person with a negative Cologuard test has a colorectal cancer is less than 1 in 1500 (negative predictive value >99.9%) or has an advanced adenoma is less than 5.3% (negative predictive value 94.7%). These data are based on a prospective cross-sectional study of 10,000 individuals at average risk for colorectal cancer who were screened with both Cologuard and colonoscopy. (José Luis Brown al, N Engl J Med 2014;370(14):2745-3752) The normal value (reference range) for this assay is negative. COLOGUARD RE-SCREENING RECOMMENDATION: Periodic colorectal cancer screening is an important part of preventive healthcare for asymptomatic individuals at average risk for colorectal cancer. Following a negative Cologuard result, the [place] [employer] and U.S. Multi-Society Task Force screening guidelines recommend a Cologuard re-screening interval of 3 years. References: [place] [employer] Guideline for Colorectal Cancer Screening: https://www.cancer.org/cancer/vtyqf-wtgzda-wodtlz/mrgivywak-hfgxtqqur-zzfbzur/ac s-rec ommendations.html.; Adam FERNÁNDEZ, Wily DURBIN, Odin DegrootK, Colorectal Cancer Screening: Recommendations for Physicians and Patients from the U.S. Multi-Society Task Force on Colorectal Cancer Screening , Am J Gastroenterology 2017; 112:7468-5085. TEST DESCRIPTION: Composite algorithmic analysis of stool DNA-biomarkers with hemoglobin immunoassay. Quantitative values of individual biomarkers are not reportable and are not associated with individual biomarker result reference ranges. Cologuard is intended for colorectal cancer screening of adults of either sex, 45 years or older, who are at average-risk for colorectal cancer (CRC). Cologuard has been approved for use by the U.S. FDA. The performance of Cologuard was established in a cross sectional study of average-risk adults aged 50-84. Cologuard performance in patients ages 45 to 49 years was estimated by sub-group analysis of near-age groups. Colonoscopies performed for a positive result may find as the most clinically significant lesion: colorectal cancer [4.0%], advanced adenoma (including sessile serrated polyps greater than or equal to 1cm diameter) [20%] or non- advanced adenoma [31%]; or no colorectal neoplasia [45%]. These estimates are derived from a prospective cross-sectional screening study of 10,000 individuals at average risk for colorectal cancer who were screened with both Cologuard and colonoscopy. (José Luis Sweet, N Engl J Med 2014;370(14):4918-2684.) Cologuard may produce a false negative or false positive result (no colorectal cancer or precancerous polyp present at colonoscopy follow up). A negative Cologuard test result does not guarantee the absence of CRC or advanced adenoma (pre-cancer). The current Cologuard screening interval is every 3 years. ([place] [employer] and U.S. Multi-Society Task Force). Cologuard performance data in a 10,000 patient pivotal study using colonoscopy as the reference method can be accessed at the following location: www.Better Weekdays/results. Additional description of the Cologuard test process, warnings and precautions can be found at www.cologuard.com. Stool specimen (specimen) (Rectum) 12/11/2021 9:00 PM CDT 12/13/2021 5:43 PM CDT Kit RESTREPO URINE Final Resul t [facility] (CLIA #:[id number]) Viri Freddy Wiggins [place] [id number], * HPV HIGH RISK (11/26/2021 9:52 AM CDT) TYPE 16 Negative Negative 11/29/2021 1:20 PM CDT [facility] TYPE 18 Negative Negative 11/29/2021 1:20 PM CDT [facility] [employer] [facility] OTHER HIGH RISK TYPES Negative Negative 11/29/2021 1:20 PM CDT [facility] Other (Cervical) Non-Blood / Unknown 11/26/2021 9:52 AM CDT 11/27/2021 3:45 PM CDT Narrative [facility] [employer] [facility] - 11/29/2021 1:20 PM CDT HPV types 16, 18, 31, 33, 35, 39, 45, 51, 52, 56, 58, 59, 66 and 68 DNA were undetectable or below the pre-set threshold. Methodology: Soft Tissue Regeneration [place] 4800 HPV Test us Kit RESTREPO MICROBIOLOGY Final Resul t [facility] [address] [place] [address], * ANTI HCV (11/26/2021 9:10 AM CDT) HEPATITIS C ANTIBODY Non-React josafat Non-React josafat 11/27/2021 6:23 PM CDT [facility] Comment:Antibodies to HCV no t detected; does not exclude the possibility of exposure to HCV. Blood BLOOD SPECIMEN / Unknown Venipuncture / Unknown 11/26/2021 9:10 AM CDT 11/26/2021 9:10 AM CDT us Kit RESTREPO SEND OUTS Final Resul t Performing Organization Address City/[facility]/ZIP Co de Phone Number [facility] [address] [place] [address], from Last 3 Months or Most Recently Relevant to Health Maintenance Insurance [place] [id number] [facility] Care Teams Muffle Worker Relationship Specialty [place] [address] [place], [place] [id number] PCP - General Family Practice 11/19/14
[2024-03-16 18:08] LABS: Chloride* 104 mmol/L (96-114); Potassium* 3.8 mmol/L (3.6-5.1); Sodium* 137 mmol/L (135-149)
[2024-03-16 18:09] LABS: Albumin* 4.2 g/dL (3.3-5.0)
[2024-03-16 18:11] LABS: Anion Gap 17 mEq/L (7-15); Blood Urea Nitrogen* 8 mg/dL (5-24); Carbon Dioxide* 16 mmol/L (20-32); Glucose* 180 mg/dL (60-115); Slide Review Reflex No
[2024-03-16 18:12] LABS: Alanine Aminotransferase* 39 U/L (4-35); Alkaline Phosphatase* 153 U/L (40-150); Aspartate Amino Transferase* 183 U/L (12-35); Bilirubin Direct* 1.7 mg/dL (0.0-0.5); Bilirubin Total* 4.7 mg/dL (0.1-1.5); Calcium* 9.1 mg/dL (8.4-10.6); Lipase* 1024 U/L (23-300); Total Protein* 8.8 g/dL (6.0-8.3)
[2024-03-16 18:25] VITALS: PULSE 131; O2SAT 96
[2024-03-16 18:26] LABS: INR 1.23 (0.91-1.10); Prothrombin Time 16.3 Seconds
[2024-03-16 18:27] LABS: Creatinine* 0.6 mg/dL (0.5-1.5); Est. Creatinine Clearance* 105.92; Estimated Glomerular Filt Rate 111 ml/min
[2024-03-16 18:30] VITALS: PULSE 127; RESP 20; O2SAT 97
[2024-03-16 18:45] VITALS: PULSE 124; O2SAT 97
[2024-03-16 19:00] VITALS: PULSE 126; O2SAT 95
[2024-03-16 19:58] LABS: Lactate* 2.2 mmol/L (0.5-1.9)
== END 2024-03-16 20:59 | disposition home or self-care (01) ==
PROVIDERS: Emergency Provider Emergency Medicine Emergency Medical Services; PCP Family Medicine
DX: R11.2 Nausea with vomiting, unspecified (principal); R94.5 Abnormal results of liver function studies
CPT/HCPCS: 36415; 80048; 80076; 83605; 83690; 84443; 85025; 85610; 87040; 93005; 96374; 99283; 99284; J2405; J7030

== ENCOUNTER 2024-04-08 16:07 | Inpatient (IN) | payer BC, SELFPAY ==
[2024-04-08] VITALS (14 sets, daily range): BP systolic 90–108; BP diastolic 52–83; PULSE 85–101; RESP 16–18; TEMP 36.9–37.3; O2SAT 97–100; BMI 21.0
--- OUTSIDE RECORDS SUMMARY | 2024-04-08 16:09 | XMS_ITS | Clinical Summary ---
Author Organization [place] Address [address] [place] [id number] Care Team Providers Care Healthcare Account Manager Name Role Phone Kit Carmen PA-C Primary Care Provider [phone] Allergies No known active allergies Medications ondansetron (ZOFRAN ODT) 4 MG ODT tab Take 1 tablet (4 mg) by mouth every 8 hours as needed for nausea or vomiting. 10 tablet 02/20/2024 Active Encounters Date Type Department Care Team Description 02/20/2024 12:37 AM DOCUMENT MANAGEMENT ANALYST - 02/20/2024 2:35 AM [facility] Emergency [facility] Emergency Dept [address] [place] [address] Vinod Ellis MD Vomiting, unspecified vomiting type, [...] on file Legal Sex Female 3:27 AM DOCUMENT MANAGEMENT ANALYST Gender Identity Not on file Sexual Orientation Not on file Last Filed Vital Signs Vital Sign Reading Time Taken Comments Blood Pressure 127/81 02/20/2024 1:05 AM DOCUMENT MANAGEMENT ANALYST Pulse 115 02/20/2024 1:05 AM DOCUMENT MANAGEMENT ANALYST Temperature 37.3 C (99.1 F) 02/19/2024 8:40 PM DOCUMENT MANAGEMENT ANALYST Respiratory Rate 20 02/19/2024 8:40 PM DOCUMENT MANAGEMENT ANALYST Oxygen Saturation 99% 02/20/2024 1:05 AM DOCUMENT MANAGEMENT ANALYST Inhaled Oxygen Concentration - - Weight 58.6 kg (129 lb 3 oz) 02/19/2024 8:40 PM DOCUMENT MANAGEMENT ANALYST Height 167.6 cm (5' 6) 02/19/2024 8:40 PM DOCUMENT MANAGEMENT ANALYST Body Mass Index 20.85 02/19/2024 8:40 PM DOCUMENT MANAGEMENT ANALYST Plan of Treatment Health Maintenance Due Date Last Done Comments ADVANCE CARE PLANNING 1975 ANNUAL REVIEW OF HM ORDERS 1975 CT COLONOGRAPHY 1975 FIT 1975 FLEX SIG 1975 COLONOSCOPY 12/01/1985 HIV SCREENING 12/01/1990 HEPATITIS A IMMUNIZATION (1 of 2 - [...] SCREENING 12/11/2024 sDNA (Cologuard) 12/11/2024 12/11/2021, 12/11/2021 ZOSTER IMMUNIZATION (1 of 2) 12/01/2025 DTAP/TDAP/TD IMMUNIZATION (3 - Td or Tdap) 04/28/2026 04/28/2016, 06/22/2006 GLUCOSE 02/18/2027 02/19/2024, 01/23/2009 HEPATITIS C SCREENING Completed 11/26/2021 HPV IMMUNIZATION Aged Out No longer e ligible based on patient's age to complete this topic MENINGITIS IMMUNIZATION Aged Out No l onger eligible based on patient's age to complete this topic Procedures Procedure Name Priority Date/Time Associated Diagnosis Comments CT ABDOMEN PELVIS W CONTRAST STAT 02/19/2024 11:13 PM DOCUMENT MANAGEMENT ANALYST CBC WITH PLATELETS & DIFFERENTIAL STAT 02/19/2024 8:53 PM DOCUMENT MANAGEMENT ANALYST HEMOGLOBIN A1C Add-On 02/19/2024 8:53 PM DOCUMENT MANAGEMENT ANALYST LIPASE STAT 02/19/2024 8:53 PM DOCUMENT MANAGEMENT ANALYST CBC WITH PLATELETS AND DIFFERENTIAL STAT 02/19/2024 8:53 PM DOCUMENT MANAGEMENT ANALYST EXTRA BLUE TOP TUBE STAT 02/19/2024 8 :53 PM DOCUMENT MANAGEMENT ANALYST COMPREHENSIVE METABOLIC PANEL STAT 02/19/2024 8:53 PM DOCUMENT MANAGEMENT ANALYST HCG QUALITATIVE STAT 02/19/2024 8:53 PM DOCUMENT MANAGEMENT ANALYST EXTRA TUBE STAT 02/19/2024 8:53 PM DOCUMENT MANAGEMENT ANALYST MA DIAGNOSTIC WITH IMPLANTS BILATERAL W/ ARI Routine 09/09/2022 10:57 AM CDT Subareolar mass of left breast from Last 3 Months or Most Recently Relevant to Health Maintenance Results * CT Abdomen Pelvis w Contrast (02/19/2024 11:13 PM DOCUMENT MANAGEMENT ANALYST) Anatomical Region Laterality Modality Abdomen/Pelvis, SUBRAD CT RUPERTO DY, UMP CT ABDOMEN PELVIS, RAD CT Computed Tomography 02/19/2024 11:1 3 PM DOCUMENT MANAGEMENT ANALYST Impressions 02/19/2024 11:39 PM DOCUMENT MANAGEMENT ANALYST IMPRESSION: 1. No acute findings or inflammatory changes in the abdomen or pelvis. 2. Morphologic changes of cirrhosis. Small abdominal varices, including patent periumbilical vein and gastroesophageal varices, suggesting portal hypertension. Trace pelvic ascites. Narrative 02/19/2024 11:39 PM DOCUMENT MANAGEMENT ANALYST EXAM: CT ABDOMEN PELVIS W CONTRAST LOCATION: [facility] DATE: 02/19/2024 INDICATION: Recurrent abdominal pain, bloody [...] EXAM: CT ABDOMEN PELVIS W CONTRAST LOCATION: [facility] DATE: 02/19/2024 INDICATION: Recurrent abdominal pain, bloody [...] Extra Blue Top Tube (02/19/2024 8:53 PM DOCUMENT MANAGEMENT ANALYST) [facility] Hold Specimen [facility] 02/19/2024 10:31 PM DOCUMENT MANAGEMENT ANALYST LABORATORY Blood BLOOD SPECIMEN / Unknown Venipuncture / Unknown 02/19/2024 8:53 PM DOCUMENT MANAGEMENT ANALYST 02/19/2024 9:18 PM DOCUMENT MANAGEMENT ANALYST Vinod Ellis MD LAB - BLOOD ORDERABLES Final Result LABORATORY [facility] Acute Care Lab [address] Lab (1st floor, no room number) [place] [address] * (ABNORMAL) CBC with platelets and differential (02/19/2024 8:53 PM DOCUMENT MANAGEMENT ANALYST) [facility] WBC Count 11.3(H) 4.0 - 11.0 10e3/uL 02/19/2024 9:26 PM DOCUMENT MANAGEMENT ANALYST [facility] LABORATORY RBC Count 3.50(L) 3.80 - 5.20 10e6/uL 02/19/2024 9:26 PM DOCUMENT MANAGEMENT ANALYST [facility] LAB[facility]ATORY Hemoglobin 11.7 11.7 - 15.7 g/dL 02/19/2024 9:26 PM DOCUMENT MANAGEMENT ANALYST [facility] LABORATORY Hematocrit 34.8(L) 35.0 - 47.0 % 02/19/2024 9:26 PM DOCUMENT MANAGEMENT ANALYST [facility] LABORATORY MCV 99 78 - 100 fL 02/19/2024 9:26 PM DOCUMENT MANAGEMENT ANALYST LABORATORY MCH 33.4(H) 26.5 - 33.0 pg 02/19/2024 9:26 PM DOCUMENT MANAGEMENT ANALYST [facility] LABORATORY MCHC 33.6 31.5 - 36.5 g/dL 02/19/2024 9:26 PM DOCUMENT MANAGEMENT ANALYST [facility] LABORATORY RDW 14.2 10.0 - 15.0 % 02/19/2024 9:26 PM DOCUMENT MANAGEMENT ANALYST [facility] LABORATORY Platelet Count 171 150 - 450 10e3/uL 02/19/2024 9:26 PM DOCUMENT MANAGEMENT ANALYST [facility] LABORATORY % Neutrophils 79 % 02/19/2024 9:26 PM DOCUMENT MANAGEMENT ANALYST [facility] LABORATORY % Lymphocytes 13 % 02/19/2024 9:26 PM DOCUMENT MANAGEMENT ANALYST [facility] LABORATORY % Monocytes 7 % 02/19/2024 9:26 PM DOCUMENT MANAGEMENT ANALYST [facility] LABORATORY % Eosinophils 0 % 02/19/2024 9:26 PM DOCUMENT MANAGEMENT ANALYST [facility] LABORATORY % Basophils 1 % 02/19/2024 9:26 PM DOCUMENT MANAGEMENT ANALYST [facility] LABORATORY % Immature Granulocytes 0 % 02/19/2024 9:26 PM DOCUMENT MANAGEMENT ANALYST [facility] LABORATORY NRBCs per 100 WBC 0 <1 /100 024 9:26 PM DOCUMENT MANAGEMENT ANALYST [facility] LABORATORY Absolute Neutrophils 8.9(H) 1.6 - 8.3 10e3/uL 02/19/2024 9:26 PM DOCUMENT MANAGEMENT ANALYST [facility] LABORATORY Absolute Lymphocytes 1.4 0.8 - 5.3 10e3/uL 02/19/2024 9:26 PM DOCUMENT MANAGEMENT ANALYST [facility] LABORATORY Absolute Monocytes 0.7 0.0 - 1.3 10e3/uL 02/19/2024 9:26 PM DOCUMENT MANAGEMENT ANALYST [facility] LABORATORY Absolute Eosinophils 0.0 0.0 - 0.7 10e3/uL 02/19/2024 9:26 PM DOCUMENT MANAGEMENT ANALYST [facility] LABORATORY Absolute Basophils 0.1 0.0 - 0.2 10e3/uL 02/19/2024 9:26 PM DOCUMENT MANAGEMENT ANALYST [facility] LABORATORY Absolute Immature Granulocytes 0.0 <=0.4 10e3/uL 02/19/2024 9:26 PM DOCUMENT MANAGEMENT ANALYST [facility] LABORATORY Absolute NRBCs 0.0 10e3/uL 02/19/2024 9:26 PM DOCUMENT MANAGEMENT ANALYST [facility] LABORATORY Blood BLOOD SPECIMEN / Unknown Venipuncture / Unknown 02/19/2024 8:53 PM DOCUMENT MANAGEMENT ANALYST 02/19/2024 9:18 PM DOCUMENT MANAGEMENT ANALYST Brody Richards MD LAB - BLOOD ORDERABLES Final Result [facility] LABORATORY [facility] Acute Care Lab [address] Lab (1st floor, no room number) [place] [address] * (ABNORMAL) Lipase (02/19/2024 8:53 PM DOCUMENT MANAGEMENT ANALYST) [facility] Lipase 347(H) 13 - 60 U/L 02/20/2024 2:11 AM DOCUMENT MANAGEMENT ANALYST LABORATORY Blood BLOOD SPECIMEN / Unknown Venipuncture / Unknown 02/19/2024 8:53 PM DOCUMENT MANAGEMENT ANALYST 02/19/2024 9:18 PM DOCUMENT MANAGEMENT ANALYST Vinod Ellis MD LAB - BLOOD ORDERABLES Final Result [facility] Lab [address] Lab (1st floor, no room number) [place] [address] * Hemoglobin A1c (02/19/2024 8:53 PM DOCUMENT MANAGEMENT ANALYST) [facility] Estimated Average Glucose 108 <117 mg/dL 02/20/2024 2:39 AM DOCUMENT MANAGEMENT ANALYST LABORATORY Hemoglobin A1C 5.4 <5.7 % 02/20/2024 2:39 AM DOCUMENT MANAGEMENT ANALYST LABORATORY Comment: Normal <5.7% Prediabetes 5.7-6.4% Diabetes 6.5% or higher Note: Adopted from ADA consensus guidelines. Blood BLOOD SPECIMEN / Unknown Venipuncture / Unknown 02/19/2024 8:53 PM DOCUMENT MANAGEMENT ANALYST 02/19/2024 9:18 PM DOCUMENT MANAGEMENT ANALYST Vinod Ellis MD LAB - BLOOD ORDERABLES Final Result [facility] [address] Lab (1st floor, no room number) [place] [address] * HCG QUALitative (blood) (02/19/2024 8:53 PM DOCUMENT MANAGEMENT ANALYST) [facility] hCG Serum Qualitative Negative Negative NOHEMI 02/19/2024 10:00 PM DOCUMENT MANAGEMENT ANALYST LABORATORY Comment:This test is for scr eening purposes. Results should be interpreted along with the clinical picture. Confirmation testing is available if warranted by ordering [id number], HCG Quantitative . Blood BLOOD SPECIMEN / Unknown Venipuncture / Unknown 02/19/2024 8:53 PM DOCUMENT MANAGEMENT ANALYST 02/19/2024 9:18 PM DOCUMENT MANAGEMENT ANALYST us Brody Richards MD LAB - BLOOD ORDERABLES Final Result LABORATORY [facility] Lab [address] Lab (1st floor, no room number) [place] [address] * (ABNORMAL) Comprehensive metabolic panel (02/19/2024 8:53 PM DOCUMENT MANAGEMENT ANALYST) Sodium 135 135 - 145 mmol/L 02/19/2024 9:43 PM DOCUMENT MANAGEMENT ANALYST LABORATORY Potassium 4.1 3.4 - 5.3 mmol/L 02/19/2024 9:43 PM DOCUMENT MANAGEMENT ANALYST LABORATORY Carbon Dioxide (CO2) 19(L) 22 - 29 mmol/L 02/19/2024 9:43 PM [facility] Anion Gap 21(H) 7 - 15 mmol/L 02/19/2024 9:43 PM DOCUMENT MANAGEMENT ANALYST LABORATORY Urea Nitrogen 10.0 6.0 - 20.0 mg/dL 02/19/2024 9:43 PM DOCUMENT MANAGEMENT ANALYST LABORATORY Creatinine 0.65 0.51 - 0.95 mg/dL 02/19/2024 9:43 PM DOCUMENT MANAGEMENT ANALYST LABORATORY GFR Estimate >90 >60 mL/min/1.7 3m2 02/19/2024 9:43 PM DOCUMENT MANAGEMENT ANALYST LABORATORY Comment:eGFR calculated usin g 2020 CKD-EPI equation. Calcium 9.7 8.8 - 10.4 mg/dL 02/19/2024 9:43 PM DOCUMENT MANAGEMENT ANALYST LABORATORY Comment:Reference intervals for this test were updated on 09/07/2023 to reflect our healthy population more accurately. There may be differences in the flagging of prior results with similar values performed with this method. Those prior results can be interpreted in the context of the updated reference intervals. Chloride 95(L) 98 - 107 mmol/L 02/19/2024 9:43 PM DOCUMENT MANAGEMENT ANALYST LABORATORY Glucose 144(H) 70 - 99 mg/dL 02/19/2024 9:43 PM DOCUMENT MANAGEMENT ANALYST [facility] LABORATORY Alkaline Phosphatase 153(H) 40 - 150 U/L 02/19/2024 9:43 PM DOCUMENT MANAGEMENT ANALYST [facility] LABORATORY AST 216(H) 0 - 45 U/L 02/19/2024 9:43 PM DOCUMENT MANAGEMENT ANALYST LABORATORY ALT 44 0 - 50 U/L 02/19/2024 9:43 PM DOCUMENT MANAGEMENT ANALYST LABORATORY Protein Total 8.6(H) 6.4 - 8.3 g/dL 02/19/2024 9:43 PM DOCUMENT MANAGEMENT ANALYST LABORATORY Albumin 3.8 3.5 - 5.2 g/dL 02/19/2024 9:43 PM DOCUMENT MANAGEMENT ANALYST LABORATORY Bilirubin Total 4.0(H) <=1.2 mg/dL 02/19/2024 9:43 PM DOCUMENT MANAGEMENT ANALYST LABORATORY Blood BLOOD SPECIMEN / Unknown Venipuncture / Unknown 02/19/2024 8:53 PM DOCUMENT MANAGEMENT ANALYST 02/19/2024 9:18 PM DOCUMENT MANAGEMENT ANALYST us Brody Richards MD LAB - BLOOD ORDERABLES Final Result LABORATORY [facility] Acute Care Lab [address] Lab (1st floor, no room number) [place] [address] * MA Diagnostic with Implants Bilateral w/Ari [...] Most Recently Relevant to Health Maintenance Insurance [facility] Care Teams Healthcare Account Manager Relationship Specialty Start Date End Date Kit Carmen PA-C [facility] [id number] [place], [place] [phone] PCP - General Physician Custom Framing Specialist 08/24/17
--- OUTSIDE RECORDS SUMMARY | 2024-04-08 16:09 | XMS_ITS | Clinical Summary ---
Author Organization [facility] Address [place], [place] [address] Care Team Providers Care Iridologist Name Role Phone Kit Carmen Primary Care Provider [phone] Allergies No known active allergies Medications progesterone micronized (PROMETRIUM) 200 mg capsule 1 tablet by mouth twice a day 0 02/28/19 16 Active TESTOSTERONE 2% IN EUCERIN CREAM ([facility] AMB MIX) Apply to back of the knees once daily 0 02/28/19 16 Active thyroid (ARMOUR THYROID) 90 mg tablet Take 1 tablet by mouth once daily. 0 07/02/19 19 Active cetirizine (ZYRTEC) 10 mg tablet Take 1 Tablet (10 mg) by mouth once daily. 06/07/19 24 Active ALPRAZolam (XANAX) 1 mg tabletIndications: Situational anxiety TAKE 0.5-1 TABLET BY MOUTH DAILY NEEDED FOR SITUATIONAL ANXIETY 15 Tablet 08/04/19 24 Active levothyroxine (SYNTHROID) 25 mcg tablet TAKE ONE TABLET BY MOUTH DAILY* 11/01/19 24 Active ondansetron (ZOFRAN ODT) 4 mg disintegrating tablet Take 4 mg by mouth every 8 hours if needed. 02/20/20 24 Active semaglutide, weight loss, (Wegovy) 1.7 mg/0.75 mL subcutaneous penIndications:Ove rweight Inject 1.7 mg subcutaneous once weekly. 9 mL 3 03/02/19 25 Active atorvastatin (LIPITOR) 20 mg tabletIndications: Hyperlipidemia, unspecified hyperlipidemia type Take 1 Tablet (20 mg) by mouth at bedtime. 90 Tablet 3 03/02/19 25 Active lisinopril-hydroch lorothiazide 20-12.5 mg tablet (PRINZIDE)Indicati ons:Hypertension, unspecified type Take 1 Tablet by mouth once daily. 90 Tablet 3 03/02/19 25 Active metoprolol succinate (TOPROL XL) 25 mg Sustained-Release tabletIndications: Supraventricular tachycardia (HC),Hypertension, unspecified type Take 1 Tablet (25 mg) by mouth once daily. 90 Tablet 3 03/02/19 25 Active Active Problems Problem Noted Date Diagnosed Date Other cirrhosis of liver 03/02/2024 Overweight 06/07/2023 Supraventricular tachycardia 04/12/2023 Pap smear for cervical cancer screening 01/07/20 Overview (01/06/2022): 11/2021 NIL/ HPV negative Plan: Pap/ HPV due 11/2026 Hyperlipidemia, unspecified 01/24/2019 Hypertension 02/01/2018 Old tear of medial meniscus of left knee 017 Situational anxiety 02/28/2015 Resolved Problems Problem Noted Date Diagnosed Date Resolved Date Supraventricular tachycardia 06/27/2018 06/07/2023 Overview (06/27/2018): Patient has been evaluated at [facility] and no underlying abnormality found. Patient has propranolol to use. Encounters Date Type Department Care Team Description 04/07/2024 Travel 03/28/2024 Orders Only [facility] [address] [place] [address] Kit Carmen PA <No scans attached> 03/28/2024 Telephone [facility] - [address] [place] [address] Rita Jameson Appointment 03/22/2024 9:15 AM FIREPROOF DOOR ASSEMBLER Orders Only [facility] [address] [address] [facility], [place] [address] Lab, Farm [facility] 03/22/2024 Travel 03/21/2024 Telephone [facility] [address] [place] [address] Kit Carmen PA Follow Up; Error-please disregard 03/21/2024 Telephone [facility] [address] [address] Lori Bowie field nurse 03/14/[address] [place] [address] Rita Jameson 03/06/2024 Orders Only [address] [address] Kit Carmen PA <No scans attached> 03/03/2024 8:20 AM FIREPROOF DOOR ASSEMBLER Ancillary Procedure [facility] [id number] [place] [address] 03/03/2024 Orders Only [address] [address] Kit Carmen PA <No scans attached> 03/02/2024 10:30 AM FIREPROOF DOOR ASSEMBLER Office Visit [address] [address] Kit Carmen PA Physical (Patient presents for physical- non fasting) 03/02/2024 Travel 02/29/[address] [address] Kit Carmen PA Medication Problem (Wegovy- wanting is to be prescribed by Kit) 02/16/[address] [address] Kit Carmen PA Refill Request (Wegovy) from Last 3 Months Immunizations Name Administration Dates Next Due COVID-19 vaccine ([email or web address] 30mcg/0.3mL) P F, INOCENTE 05/30/2020,05/09/2020 Td, Preservative Free (age >= 7 Years) 7 Tdap 06/22/2006 Family History Medical History Relation Name Comments Cancer Father skin Hypertension Maternal Grandfather Stroke Maternal Grandfather Diabetes Maternal Grandmother Heart Disease Maternal Grandmother o f MO Hypertension Maternal Grandmother Diabetes Maternal Uncle 1 Heart Disease Maternal Uncle 1 x 2 - MO @ 40 & MO @58 Diabetes Maternal Uncle 2 Hypertension Mother [...] on file Legal Sex Female 6:30 AM FIREPROOF DOOR ASSEMBLER Gender Identity Not on file Sexual Orientation Not on file Occupation Industry Job Start Date Job End Date unemployed - looking for work Not on file Not on file Not on file Obstetrics History Last Filed Vital Signs Vital Sign Reading Time Taken Comments Blood Pressure 104/64 03/02/2024 10:36 AM FIREPROOF DOOR ASSEMBLER Pulse 88 03/02/2024 10:36 AM FIREPROOF DOOR ASSEMBLER Temperature 36.4 C (97.5 F) 11/09/2023 11:31 AM CDT Respiratory Rate 14 11/09/2023 11:31 AM CDT Oxygen Saturation 96% 11/09/2023 11:31 AM CDT Inhaled Oxygen Concentration - - Weight 59.6 kg (131 lb 6.4 oz) 03/02/2024 10:36 AM FIREPROOF DOOR ASSEMBLER Height 167.6 cm (5' 6) 03/02/2024 10:36 AM FIREPROOF DOOR ASSEMBLER Body Mass Index 21.21 03/02/2024 10:36 AM FIREPROOF DOOR ASSEMBLER Plan of Treatment Upcoming Encounters Date Type Department Care Team (Late st Contact Info) Description 04/12/2024 10:00 AM FIREPROOF DOOR ASSEMBLER Office Visit [place] [id number] [facility] [address] [place] [address] Rachel Head MD [address] [place] [address] 05/08/2024 9:00 AM CDT Office Visit [facility] [address] [facility] [address] [place] [address] Reinier Kan MD [address] [facility] [address] [place] [address] Health Maintenance Due Date Last Done Comments HIV for age 15-65 12/01/1990 Pneumococcal series for age 6-49 (1 of 2 - PCV) 12/01/1994 COVID-19 vaccine series (2023- season) 2023 12/27/2020, 05/30/2020, 05/09/2020 Influenza for age 9-49 10/24/2023 Fecal testing sDNA-FIT ([place] guard) for age 45-75 12/11/2024 12/11/2021 BMI [...] Additional history exists Lipids for age 45-75 03/22/2029 03/22/2024, 03/02/2024, 04/12/2023, Additional history exists Tdap Completed 06/22/2006 Hepatitis C screening for ag e 18-79 Completed 11/26/2021 Procedures Procedure Name Priority Date/Time Associated Diagnosis Comments LIPID PANEL W REFLEX MEASURED LDL Routine 03/22/2024 9:28 AM FIREPROOF DOOR ASSEMBLER COMP METABOLIC PANEL Routine 03/22/2024 9:28 AM FIREPROOF DOOR ASSEMBLER Hyperlipidemia, unspecified hyperlipidemia type Hypertension Abnormal laboratory test result IRON PLUS IRON BINDING CAP Routine 03/22/2024 9:28 AM FIREPROOF DOOR ASSEMBLER Abnormal blood level of iron FERRITIN Routine 03/22/2024 9:28 AM FIREPROOF DOOR ASSEMBLER Abnormal blood level of iron CBC WITH AUTO DIFFERENTIAL Routine 03/22/2024 9:28 AM FIREPROOF DOOR ASSEMBLER Abnormal blood level of iron XR MAMMO HEIDE BILAT SCREEN IMPLANT Routine 03/03/2024 8:38 AM FIREPROOF DOOR ASSEMBLER Encounter for screening mammogram for breast cancer LIPID PANEL W REFLEX MEASURED LDL Routine 03/02/2024 11:24 AM FIREPROOF DOOR ASSEMBLER Hyperlipidemia, unspecified hyperlipidemia type BASIC METABOLIC PANEL Routine 03/02/2024 11:24 AM FIREPROOF DOOR ASSEMBLER Hypertension SDNA-FIT EXTERNAL (COLOGUARD) Routine 12/11/2021 9:00 PM CDT Screening for colon cancer HPV HIGH RISK Routine 11/26/2021 9:52 AM CDT Pap smear for cervical cancer screening ANTI HCV Routine 11/26/2021 9:10 AM CDT Need for hepatitis C screening test from Last 3 Months or Most Recently Relevant to Health Maintenance Results * (ABNORMAL) LIPID PANEL W REFLEX MEASURED LDL (03/22/2024 9:28 AM FIREPROOF DOOR ASSEMBLER) Only the most recent of2 resultswithin the time period is included. [facility] Signature CHOLESTEROL, TOTAL 462(H) <200 mg/dL [facility] HDL CHOLESTEROL 39(L) > OR = 50 mg/dL [facility] TRIGLYCERIDES 277(H) <150 mg/dL [facility] Comment: If a non-fasting specimen was collected, consider repeat triglyceride testing on a fasting specimen if clinically indicated. Jody guadarrama al. J. of Clin. Lipidol. 2015;9:129-169. LDL-CHOLESTEROL >350(H) mg/dL (calc) [facility] Comment: LDL-C levels > or = 190 [...] about testing for familial hypercholesterolemia, please call [employer] at [phone]. Jody Atkins, et al. J National Lipid Association Recommendations for Patient-Centered Management of Dyslipidemia: Part 1 Journal of Clinical Lipidology 2015;9(2), 129-169. Kaushal Hernandez et al. (2014). Homozygous familial hypercholesterolaemia: new insights and guidance for clinicians to improve detection and clinical management. Heart Journal, 35(32), 8607-4304. Reference range: <100 Desirable range <100 mg/dL for primary prevention; <70 mg/dL for patients with CHD or diabetic patients with > or = 2 CHD risk factors. LDL-C is now calculated using the Anil-Goyo calculation, which is a validated novel method providing better accuracy than the Friedewald equation in the estimation of LDL-C. Anil ARREOLA et al. BJORN. 2013;310(19): 8840-7300 (http://education.Skigit/faq/ROJ615) CHOL/HDLC RATIO 11.8(H) <5.0 (calc) [facility] NON HDL CHOLESTEROL 423(H) <130 mg/dL (calc) [facility] Comment: Non-HDL level > or = 220 [...] <70 mg/dL) is considered a therapeutic option. 03/22/2024 9:28 AM FIREPROOF DOOR ASSEMBLER 03/22/2024 9:28 AM FIREPROOF DOOR ASSEMBLER us Kit RESTREPO CHEMISTRY Final Resul t Performing Organization Address City/[facility]/ZIP Co de Phone Number [facility] [address] [address], [facility] [address] [place] [address] * (ABNORMAL) IRON PLUS IRON BINDING CAP (03/22/2024 9:28 AM FIREPROOF DOOR ASSEMBLER) [facility] IRON, TOTAL 85 40 - 190 mcg/dL [facility] IRON BINDING CAPACITY 179(L) 250 - 450 mcg/dL (calc) [facility] % SATURATION 47(H) 16 - 45 % (calc) [facility] Blood BLOOD SPECIMEN / Unknown 03/22/2024 9:28 AM FIREPROOF DOOR ASSEMBLER 03/22/2024 9:28 AM FIREPROOF DOOR ASSEMBLER us Kit RESTREPO CHEMISTRY Final Resul t [facility] [address] [place] [address], [place] [phone] [facility] [address] [place] [address] * (ABNORMAL) CBC AND DIFFERENTIAL (03/22/2024 9:28 AM FIREPROOF DOOR ASSEMBLER) [facility] WHITE BLOOD CELL COUNT 12.1(H) 3.8 - 10.8 Thousand/u L [facility] RED BLOOD CELL COUNT 3.09(L) 3.80 - 5.10 Million/uL [facility] HEMOGLOBIN 10.8(L) 11.7 - 15.5 g/dL [facility] HEMATOCRIT 30.6(L) 35.0 - 45.0 % [facility] MCV 99.0 80.0 - 100.0 fL [facility] MCH 35.0(H) 27.0 - 33.0 pg [facility] MCHC 35.3 32.0 - 36.0 g/dL [facility] Comment: For adults, a slight decrease in the calculated MCHC value (in the range of 30 to 32 g/dL) is most likely not clinically significant; however, it should be interpreted with caution in correlation with other red cell parameters and the patient's clinical condition. RDW 12.9 11.0 - 15.0 % [facility] PLATELET COUNT 183 140 - 400 Thousand/u L [facility] MPV 10.5 7.5 - 12.5 fL [facility] ABSOLUTE NEUTROPHILS 6,945 1,500 - 7,800 cells/uL [facility] ABSOLUTE LYMPHOCYTES 3,194 850 - 3,900 cells/uL [facility] ABSOLUTE MONOCYTES 1,670(H) 200 - 950 cells/uL [facility] ABSOLUTE EOSINOPHILS 206 15 - 500 cells/uL [facility] ABSOLUTE BASOPHILS 85 0 - 200 cells/uL [facility] NEUTROPHILS 57.4 % [facility] LYMPHOCYTES 26.4 % [facility] MONOCYTES 13.8 % [facility] EOSINOPHILS 1.7 % [facility] BASOPHILS 0.7 % [facility] Blood BLOOD SPECIMEN / Unknown 03/22/2024 9:28 AM FIREPROOF DOOR ASSEMBLER 03/22/2024 9:28 AM FIREPROOF DOOR ASSEMBLER Kit RESTREPO HEMATOLOGY Final Resul t [employer] [employer] [facility] [address] [place] [address], [place] [phone] [facility] [address] [place] [address] * (ABNORMAL) FERRITIN (03/22/2024 9:28 AM FIREPROOF DOOR ASSEMBLER) FERRITIN 868(H) 16 - 232 ng/mL [facility] Blood BLOOD SPECIMEN / Unknown 03/22/2024 9:28 AM FIREPROOF DOOR ASSEMBLER 03/22/2024 9:28 AM FIREPROOF DOOR ASSEMBLER Kit RESTREPO CHEMISTRY Final Resul t Performing Organization Address [facility]/ZIP Co de Phone Number [facility] [address] [place] [address], [place] [phone] [facility] [address] [place] [address] * (ABNORMAL) COMP METABOLIC PANEL (03/22/2024 9:28 AM FIREPROOF DOOR ASSEMBLER) GLUCOSE 88 65 - 99 mg/dL [facility] Comment: Fasting reference interval UREA NITROGEN (BUN) 9 7 - 25 mg/dL [facility] CREATININE 0.77 0.50 - 0.99 mg/dL [facility] EGFR 95 > OR = 60 mL/min/1. 73m2 [facility] BUN/CREATININE RATIO SEE NOTE: 6 - 22 (calc) [facility] Comment: Not Reported: BUN and Creatinine are within reference range. SODIUM 132(L) 135 - 146 mmol/L [facility] POTASSIUM 4.0 3.5 - 5.3 mmol/L [facility] CHLORIDE 101 98 - 110 mmol/L [facility] CARBON DIOXIDE 23 20 - 32 mmol/L [facility] CALCIUM 9.2 8.6 - 10.2 mg/dL [facility] PROTEIN, TOTAL 7.6 6.1 - 8.1 g/dL [facility] ALBUMIN 3.4(L) 3.6 - 5.1 g/dL [facility] GLOBULIN 4.2(H) 1.9 - 3.7 g/dL (calc) [facility] ALBUMIN/GLOBULIN RATIO 0.8(L) 1.0 - 2.5 (calc) [facility] BILIRUBIN, TOTAL 3.3(H) 0.2 - 1.2 mg/dL [facility] ALKALINE PHOSPHATASE 119 31 - 125 U/L [facility] AST 68(H) 10 - 35 U/L [facility] ALT 20 6 - 29 U/L [facility] Blood BLOOD SPECIMEN / Unknown 03/22/2024 9:28 AM FIREPROOF DOOR ASSEMBLER 03/22/2024 9:28 AM FIREPROOF DOOR ASSEMBLER us Kit RESTREPO CHEMISTRY Final Resul t [facility] [address] [place] [address], [facility] [address] * XR MAMMO HEIDE BILAT SCREEN IMPLANT (03/03/2024 8:38 AM FIREPROOF DOOR ASSEMBLER) Anatomical Region Laterality Modality BREASTS, Breast Left, Breast Right Bilateral Mammography Impressions 03/03/2024 11:45 AM FIREPROOF DOOR ASSEMBLER There is no radiographic evidence for malignancy. Recommend annual mammograms. MAMMOGRAM ASSESSMENT: ACR 2 Benign PATIENTS: You will also receive a letter with your examination results in an easy to read format. If you have questions about your results, please contact your referring provider. Narrative 03/03/2024 11:45 AM FIREPROOF DOOR ASSEMBLER For Patients: As a result of the Century Cures Act, medical imaging exams and procedure reports are released immediately into your electronic medical record. You may view this report before your referring provider. If you have questions, please contact your health care provider. XR MAMMO HEIDE BILAT SCREEN IMPLANT [[id number]] CLINICAL HISTORY: This is an asymptomatic 48 [...] microcalcifications. There are breast implant(s) present.. Kit Carmen PA MAMMO Final Resul t * (ABNORMAL) BASIC METABOLIC PANEL (03/02/2024 11:24 AM FIREPROOF DOOR ASSEMBLER) GLUCOSE 68 65 - 99 mg/dL [facility] Comment: Fasting reference interval UREA NITROGEN (BUN) 9 7 - 25 mg/dL [facility] CREATININE 0.67 0.50 - 0.99 mg/dL [facility] EGFR 108 > OR = 60 mL/min/1. [...] BLOOD SPECIMEN / Unknown 03/02/2024 11:24 AM FIREPROOF DOOR ASSEMBLER 03/02/2024 11:24 AM FIREPROOF DOOR ASSEMBLER Narrative [facility] - 03/03/2024 5:09 AM FIREPROOF DOOR ASSEMBLER FASTING:YES FASTING: YES Kit RESTREPO CHEMISTRY Final Resul t [facility] [address] [place] [address], [facility] [address] [place] [address] * SDNA-FIT EXTERNAL (COLOGUARD) (12/11/2021 9:00 PM CDT) NONINV COLON CA DNA+OCC BLD SCRN STL-IMP Negative Negative 12/17/2021 4:48 PM CDT [facility] (CLIA #:[id number]) Comment: NEGATIVE TEST RESULT. A negative Cologuard [...] with both Cologuard and colonoscopy. (José Luis Cameron et al, N Engl J Med 2014;370(14):7009-5820) The normal value (reference range) for this assay is negative. COLOGUARD RE-SCREENING RECOMMENDATION: Periodic colorectal cancer screening is an important part of preventive healthcare for asymptomatic individuals at average risk for colorectal cancer. Following a negative Cologuard result, the Japanese Cancer Society and U.S. Multi-Society Task Force screening guidelines recommend a Cologuard re-screening interval of 3 years. References: [employer] Cancer Society Guideline for Colorectal Cancer Screening: https://www.cancer.org/cancer/tfarx-xfnzdd-ooxsub/ljvkyinsp-ljngxfyjm-waktgis/ac s-rec ommendations.html.; Adam DK, Wily CR, Odin RENEE, Colorectal Cancer Screening: Recommendations for Physicians and Patients from the U.S. Multi-Society Task Force on Colorectal Cancer Screening , Am J Gastroenterology 2017; 112:6956-9706. TEST DESCRIPTION: Composite algorithmic analysis of stool [...] with both Cologuard and colonoscopy. (José Luis Cameron et al, N Engl J Med 2014;370(14):3158-8851.) Cologuard may produce a false negative or false positive result (no colorectal cancer or precancerous polyp present at colonoscopy follow up). A negative Cologuard test result does not guarantee the absence of CRC or advanced adenoma (pre-cancer). The current Cologuard screening interval is every 3 years. ([employer] Cancer Society and U.S. Multi-Society Task Force). Cologuard performance data in a 10,000 patient pivotal study using colonoscopy as the reference method can be accessed at the following location: [email or web address]/results. Additional description of the Cologuard test process, warnings and precautions can be found at [email or web address]. Stool specimen (specimen) (Rectum) 12/11/2021 9:00 PM CDT 12/13/2021 5:43 PM CDT us Kit RESTREPO URINE Final Resul t [facility] (CLIA #:[id number]) [place] [address], * HPV HIGH RISK (11/26/2021 9:52 AM CDT) TYPE 16 Negative Negative 11/29/2021 1:20 PM CDT [facility] TYPE 18 Negative Negative 11/29/2021 1:20 PM CDT [facility] TRA [facility] OTHER HIGH RISK TYPES Negative Negative 11/29/2021 1:20 PM CDT [facility] Other (Cervical) Non-Blood / Unknown 11/26/2021 9:52 AM CDT 11/27/2021 3:45 PM CDT Narrative [facility] - 11/29/2021 1:20 PM CDT HPV types 16, 18, 31, 33, 35, 39, 45, 51, 52, 56, 58, 59, 66 and 68 DNA were undetectable or below the pre-set threshold. Methodology: Grace Gabo 4800 HPV Test Kit RESTREPO MICROBIOLOGY Final Resul t Performing Organization Address [facility] Co de Phone Number [facility] [address] [place] [address], * ANTI HCV (11/26/2021 9:10 AM CDT) HEPATITIS C ANTIBODY Non-React josafat Non-React josafta 11/27/2021 6:23 PM CDT [facility] Comment:Antibodies to HCV no t detected; does not exclude the possibility of exposure to HCV. Blood BLOOD SPECIMEN / Unknown Venipuncture / Unknown 11/26/2021 9:10 AM CDT 11/26/2021 9:10 AM CDT Kit RESTREPO SEND OUTS Final Resul t Performing Organization Address City/[facility]/ZIP Co de Phone Number [facility] [address] [place] [address], from Last 3 Months or Most Recently Relevant to Health Maintenance Insurance [facility] Care Teams Iridologist Relationship Specialty [place] [address] [place] [address] PCP - General Family Practice 11/19/14
--- NOTE | 2024-04-08 16:49 | ED.GENADULT ---
HPI - General Adult General Chief complaint: Shortness of Breath/Dyspnea Stated complaint: SOB, pain at liver biopsy location. Time Seen by Provider: 04/08/24 16:09 History of Present Illness HPI narrative: This patient comes in with right upper quadrant pain. She had a liver biopsy done yesterday and was doing well but had rather sudden onset of very severe pain prior to arrival here. She states that the pain is almost gone currently except she has distinct pain that is reproduced when sitting up or taking a deep breath. She had a liver biopsy because of elevated liver enzymes and lipase is. She was taking Wegovy and discontinued this when I saw her about 3 weeks ago. She is also discontinued all alcohol intake. Related Data Home Medications ?Medication ?Instructions ?Recorded ?Confirmed atorvastatin 20 mg tablet 20 mg PO QDAY 02/28/22 04/08/24 lisinopril 20 1 tab PO QDAY 02/28/22 04/08/24 mg-hydrochlorothiazide 12.5 mg tablet metoprolol succinate 25 mg 25 mg PO DAILY 02/28/22 04/08/24 tablet,extended release 24 hr levothyroxine 25 mcg tablet 25 mcg PO DAILY 08/13/22 04/08/24 progesterone micronized 200 mg 400 mg PO DAILY 08/13/22 04/08/24 capsule semaglutide (weight loss) 0.25 0.25 mg subcut 04/08/24 mg/0.5 mL subcutaneous pen injector (Wegovy) Previous Rx's ?Medication ?Instructions ?Recorded ondansetron 4 mg disintegrating 4 mg PO Q6-8H PRN nausea and 02/28/22 tablet vomiting #30 tabs Allergies Allergy/AdvReac Type Severity Reaction Status Date / Time No Known Drug Allergies Allergy Verified 04/08/24 16:20 Review of Systems Status of ROS: Reports: 10 or more systems reviewed and unremarkable except as noted in History and below Narrative: Constitutional: No fevers, no weight gain or loss. Eyes: No discharge. No vision changes. HENT: No congestion, no sore throat, no ear pain. Cardiovascular: No chest pain, no palpitations. Respiratory: No shortness of breath, no wheezes, no cough. Gastrointestinal: No diarrhea. Abdominal pain with nausea and some vomiting as described above. Genitourinary: No dysuria, no hematuria. Musculoskeletal: Normal range of motion. Skin: No rashes, no pruritis. Neurological: No dizziness, weakness, sensory change, speech change. Endo/Heme/Allergies: No bruising or bleeding. No polydipsia. Pysch: no suicidality, no anxiety, no insomnia. All other systems reviewed and are negative. [facility] Medical History (Updated 04/08/24 @ 18:50 by Daniel Wilson MD) Uncontrollable nausea and vomiting ?R11.2 - Nausea with vomiting, unspecified (ICD-10) Sore throat ?J02.9 - Acute pharyngitis, unspecified (ICD-10) Social History Smoking Status: Never smoker How often do you have a drink containing alcohol: never How many standard drinks containing alcohol do you have on a typical day: 3 or 4 How often do you have six or more drinks on one occasion: Weekly AUDIT-C Alcohol total score: 4 Non-prescribed substance use: denies use Exam Narrative: Exam Narrative: Constitutional: Well-developed, well-nourished, no acute distress. HEENT: Normocephalic, atraumatic. Neck: Normal range of motion. Nontender. Supple. Heart: Regular. No murmurs. Normal rate. Intact distal pulses. Lungs: Clear to auscultation. No chest discomfort. No wheezes, rhonchi, or rales. Abdomen: Normal bowel sounds. Mild tenderness in the right upper quadrant. Reproducible when taking a deep breath or with certain movements. Biopsy site appears to be recovering normally without sign of drainage or erythema. No rebound tenderness. Genitalia: Deferred. Back: No midline tenderness. Normal range of motion. Extremities: Normal range of motion. No injury. Skin: Intact. No rash. Warm. No erythema or pallor. Neurologic: No altered sensation. No weakness. Alert and oriented. Psychiatric: No suicidality. No anxiety or depression. No insomnia. Nursing notes and vitals signs are reviewed. Const: Vital Signs, click to edit/add: Vital Signs - 24 hr 04/08/24 16:11 04/08/24 17:26 04/08/24 17:32 Temperature 98.4 F Pulse Rate 87 85 Pulse Rate [Pulse Oximeter] 98 Respiratory Rate 18 Blood Pressure 101/66 104/63 Blood Pressure [Ri ght Upper Arm] 91/54 L Pulse Oximetry 97 100 100 Oxygen Delivery Me thod Room Air 04/08/24 18:00 04/08/24 18:01 04/08/24 18:15 Temperature Pulse Rate 92 93 90 Pulse Rate [Pulse Oximeter] Respiratory Rate Blood Pressure 97/62 Blood Pressure [Ri ght Upper Arm] Pulse Oximetry 100 100 100 Oxygen Delivery Me thod 04/08/24 18:30 04/08/24 18:31 Temperature Pulse Rate 92 101 H Pulse Rate [Pulse Oximeter] Respiratory Rate 18 Blood Pressure 108/83 Blood Pressure [Ri ght Upper Arm] Pulse Oximetry 100 100 Oxygen Delivery Me thod Course Vital Signs Vital signs: Initial Vital Signs Temperature 98.4 F 04/08/24 16:11 Temperature Source Temporal Artery Scan 04/08/24 16:11 Pulse Rate 98 04/08/24 16:11 Respiratory Rate 18 04/08/24 16:11 Blood Pressure 91/54 L 04/08/24 16:11 Blood Pressure Mean 66 L 04/08/24 16:11 Blood Pressure Position Sitting 04/08/24 16:11 Pulse Oximetry 97 04/08/24 16:11 Oxygen Delivery Method Room Air 04/08/24 16:11 Vital Signs Temperature 98.4 F 04/08/24 16:11 Pulse Rate 98 04/08/24 16:11 Respiratory Rate 18 04/08/24 16:11 Blood Pressure 91/54 L 04/08/24 16:11 Pulse Oximetry 97 04/08/24 16:11 Oxygen Delivery Method Room Air 04/08/24 16:11 Temperature 98.4 F 04/08/24 16:11 Pulse Rate 101 H 04/08/24 18:31 Respiratory Rate 18 04/08/24 18:31 Blood Pressure 108/83 04/08/24 18:31 Pulse Oximetry 100 04/08/24 18:31 Oxygen Delivery Method Room Air 04/08/24 16:11 Medical Decision Making MDM Narrative Medical decision making narrative: This patient had a liver biopsy done yesterday and comes in today with sudden onset of severe right upper quadrant abdominal pain. She states now that the pain is radiating down into her pelvis. She arrives here with normal vital signs. An IV is established and labs are acquired. Her hemoglobin returns at 9.5. Previous hemoglobin was at 11.1 about [address] scan of the abdomen and pelvis shows evidence of a moderate amount of fluid in the abdomen likely blood from the biopsy site. I did speak with the [place] liability claims representative, Dr. Floyd who stated that this would likely self resolve but should be watched in the hospital. I also spoke with the surgeon on-call, Dr. Reyes, who reviewed images and is agreeable with her coming in the hospital here. The hospitalist was contacted and will make arrangements for admission. Dr. Floyd left his phone number which is his personal mobile phone and can be contacted at any time. That number is [phone]. Lab Data Labs: Lab Results 04/08/24 Range/Units 16:56 WBC 10.62 (4.50-11.00) K/uL RBC 2.77 L (4.00-5.20) m/uL Hgb 9.5 L (12.0-16.0) gm/dL Hct 28.5 L (33.0-51.0) % MCV 103 H (80-100) fL MCH 34 (26-34) pg MCHC 33 (32-36) gm/dL RDW Coeff of Waldemar 13.0 (11.5-15.5) % Plt Count 133 L (140-440) K/uL Neut % (Auto) 69.9 (42.0-72.0) % Lymph % (Auto) 20.0 (20-44) % Plumas % (Auto) 8.9 (0.0-11.0) % Eos % (Auto) 0.9 (0.0-7.0) % Baso % (Auto) 0.2 (0.0-3.0) % Neut # (Auto) 7.43 H (1.7-7.0) K/uL Lymph # (Auto) 2.12 (0.90-2.90) K/uL Plumas # (Auto) 0.90 (0.00-0.90) K/UL Eos # (Auto) 0.10 (0.00-0.50) K/uL Baso # (Auto) 0.02 (0.00-0.30) K/uL Abs Immat Gran (auto) 0.01 (0.00-0.30) K/uL Imm/Tot Granulo (auto) 0.1 % Sodium 130 L (135-149) mmol/L Potassium 3.8 (3.6-5.1) mmol/L Chloride 98 (96-114) mmol/L Carbon Dioxide 20 (20-32) mmol/L Anion Gap 12 (7-15) mEq/L BUN 8 (5-24) mg/dL Creatinine 0.7 (0.5-1.5) mg/dL Estimated Creat Clear 91.49 Estimated GFR 107 ml/min Glucose 91 (60-115) mg/dL Calcium 9.1 (8.4-10.6) mg/dL Total Bilirubin 6.3 H (0.1-1.5) mg/dL Direct Bilirubin 1.9 H (0.0-0.5) mg/dL AST 87 H (12-35) U/L ALT 25 (4-35) U/L Alkaline Phosphatase 108 (40-150) U/L Total Protein 7.8 (6.0-8.3) g/dL Albumin 3.7 (3.3-5.0) g/dL Lipase 561 H (23-300) U/L Imaging Data CT scan - abdomen: Radiologist's impression: 1. Moderate amount of abdominopelvic ascites that appears slightly dense. This most likely reflects hemorrhage. Active hemorrhage not seen. 2. Cirrhotic morphology liver. Recanalized umbilical vein upper abdominal varices and gastroesophageal, periumbilical varices. Findings of portal hypertension. 3. Wall Thickening of the urinary bladder, incompletely distended. Focus of air in the urinary bladder correlate with recent instrumentation. Discharge Plan Discharge Clinical Impression: Hemoperitoneum Patient Disposition: Admitted As Observation Condition: Stable Prescriptions: No Action metoprolol succinate 25 mg tablet extended release 24 hr 25 mg PO DAILY lisinopril-hydrochlorothiazide 20-12.5 mg tablet 1 tab PO QDAY Patient Comments: Take 1 Tablet by mouth once daily. atorvastatin 20 mg tablet 20 mg PO QDAY Patient Comments: TAKE ONE TABLET BY MOUTH AT BEDTIME ondansetron 4 mg tablet,disintegrating 4 mg PO Q6-8H PRN (Reason: nausea and vomiting) Qty: 30 0RF levothyroxine 25 mcg tablet 25 mcg PO DAILY progesterone micronized 200 mg capsule 400 mg PO DAILY Wegovy 0.25 mg/0.5 mL pen injector 0.25 mg subcut Follow Up/Referrals: Odessa Oneill MD [Staff Physician] -
--- OUTSIDE RECORDS SUMMARY | 2024-04-08 16:57 | XMS_ITS | Clinical Summary ---
Author Organization [employer] [facility] Address [place], [place] [address] Care Team Providers Care Donor Floor Technician Name Role Phone Kit Carmen Primary Care Provider Allergies No known active allergies Medications progesterone micronized (PROMETRIUM) 200 mg capsule 1 tablet by mouth twice a day 0 02/28/19 16 Active TESTOSTERONE 2% IN EUCERIN CREAM ([facility] AMB MIX) Apply to back of [...] Overview (06/27/2018): Patient has been evaluated at [facility] and no underlying abnormality found. Patient has propranolol to use. Encounters Date Type Department Care Team Description 04/07/2024 Travel 03/28/2024 Orders Only [facility] [address] [place] [address] Kit Carmen PA <No scans attached> 03/28/2024 Telephone [facility] - 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 [place] [address] Rita Jameson 03/06/2024 Orders Only [address] [address] Kit Carmen PA <No scans attached> 03/03/2024 8:20 AM LITHOGRAPHIC PROOFER Ancillary Procedure [facility] [id number] [place] [address] 03/03/2024 Orders Only [address] [address] Kit Carmen PA <No scans attached> 03/02/2024 10:30 AM LITHOGRAPHIC PROOFER Office Visit [address] [address] Kit Carmen PA Physical (Patient presents for physical- non fasting) 03/02/2024 Travel 02/29/[address] [address] Kit Carmen PA Medication Problem (Wegovy- wanting is to be prescribed by [facility]) 02/16/[address] [address] Kit Carmen PA Refill Request (Wegovy) from Last 3 Months Immunizations Name Administration Dates Next Due COVID-19 vaccine ([employer] 30mcg/0.3mL) P F, INOCENTE 05/30/2020,05/09/2020 Td, Preservative Free (age >= 7 Years) 7 Tdap 06/22/2006 Family History Medical History Relation Name Comments Cancer Father skin Hypertension Maternal Grandfather Stroke Maternal Grandfather Diabetes Maternal Grandmother Heart Disease Maternal Grandmother o f [place] Hypertension Maternal Grandmother Diabetes Maternal Uncle 1 Heart Disease Maternal Uncle 1 x 2 - [place] @ 40 & [place] @58 Diabetes Maternal Uncle 2 Hypertension Mother [...] on file Legal Sex Female 6:30 AM LITHOGRAPHIC PROOFER Gender Identity Not on file Sexual Orientation Not on file Occupation Industry Job Start Date Job End Date unemployed - looking for work Not on file Not on file Not on file Obstetrics History Last Filed Vital Signs Vital Sign Reading Time Taken Comments Blood Pressure 104/64 03/02/2024 10:36 AM LITHOGRAPHIC PROOFER Pulse 88 03/02/2024 10:36 AM LITHOGRAPHIC PROOFER Temperature 36.4 C (97.5 F) 11/09/2023 11:31 AM CDT Respiratory Rate 14 11/09/2023 11:31 AM CDT Oxygen Saturation 96% 11/09/2023 11:31 AM CDT Inhaled Oxygen Concentration - - Weight 59.6 kg (131 lb 6.4 oz) 03/02/2024 10:36 AM LITHOGRAPHIC PROOFER Height 167.6 cm (5' 6) 03/02/2024 10:36 AM LITHOGRAPHIC PROOFER Body Mass Index 21.21 03/02/2024 10:36 AM LITHOGRAPHIC PROOFER Plan of Treatment Upcoming Encounters Date Type Department Care Team (Late st Contact Info) Description 04/12/2024 10:00 AM LITHOGRAPHIC PROOFER Office Visit [place] [id number] [facility] [address] [place] [address] Rachel Head MD [address] [place] [address] 05/08/2024 9:00 AM CDT Office Visit [facility] [address] [facility] [address] [place] [address] Reinier Kan MD [address] [facility] [address] [place] [address] Health Maintenance Due Date Last Done Comments HIV for age 15-65 12/01/1990 Pneumococcal series for age 6-49 (1 of 2 - PCV) 12/01/1994 COVID-19 vaccine series (2023- season) 2023 12/27/2020, 05/30/2020, 05/09/2020 Influenza for age 9-49 10/24/2023 Fecal testing sDNA-FIT ([place] guard) for age 45-75 12/11/2024 12/11/2021 BMI [...] REFLEX MEASURED LDL Routine 03/22/2024 9:28 AM LITHOGRAPHIC PROOFER COMP METABOLIC PANEL Routine 03/22/2024 9:28 AM LITHOGRAPHIC PROOFER Hyperlipidemia, unspecified hyperlipidemia type Hypertension Abnormal laboratory test result IRON PLUS IRON BINDING CAP Routine 03/22/2024 9:28 AM LITHOGRAPHIC PROOFER Abnormal blood level of iron FERRITIN Routine 03/22/2024 9:28 AM LITHOGRAPHIC PROOFER Abnormal blood level of iron CBC WITH AUTO DIFFERENTIAL Routine 03/22/2024 9:28 AM LITHOGRAPHIC PROOFER Abnormal blood level of iron XR MAMMO HEIDE BILAT SCREEN IMPLANT Routine 03/03/2024 8:38 AM LITHOGRAPHIC PROOFER Encounter for screening mammogram for breast cancer LIPID PANEL W REFLEX MEASURED LDL Routine 03/02/2024 11:24 AM LITHOGRAPHIC PROOFER Hyperlipidemia, unspecified hyperlipidemia type BASIC METABOLIC PANEL Routine 03/02/2024 11:24 AM LITHOGRAPHIC PROOFER Hypertension SDNA-FIT EXTERNAL (COLOGUARD) Routine 12/11/2021 9:00 PM CDT Screening for colon cancer HPV HIGH RISK Routine 11/26/2021 9:52 AM CDT Pap smear for cervical cancer screening ANTI HCV Routine 11/26/2021 9:10 AM CDT Need for hepatitis C screening test from Last 3 Months or Most Recently Relevant to Health Maintenance Results * (ABNORMAL) LIPID PANEL W REFLEX MEASURED LDL (03/22/2024 9:28 AM LITHOGRAPHIC PROOFER) Only the most recent of2 resultswithin the time period is included. [facility] Signature CHOLESTEROL, TOTAL 462(H) <200 mg/dL [facility] HDL CHOLESTEROL 39(L) > OR = 50 mg/dL [facility] TRIGLYCERIDES 277(H) <150 mg/dL [facility] Comment: If a non-fasting specimen was collected, consider repeat triglyceride testing on a fasting specimen if clinically indicated. Jody guadarrama al. J. of Clin. Lipidol. 2015;9:129-169. LDL-CHOLESTEROL >350(H) mg/dL (calc) [facility] Comment: LDL-C levels > or = 190 [...] about testing for familial hypercholesterolemia, please call [employer] at [email or web address].[employer].INFO. Jody Atkins, et al. J National Lipid Association Recommendations for Patient-Centered Management of Dyslipidemia: Part 1 Journal of Clinical Lipidology 2015;9(2), 129-169. Kaushal Hernandez et al. (2014). Homozygous familial hypercholesterolaemia: new insights and guidance for clinicians to improve detection and clinical management. Heart Journal, 35(32), 7625-1746. Reference range: <100 Desirable range <100 mg/dL for primary prevention; <70 mg/dL for patients with CHD or diabetic patients with > or = 2 CHD risk factors. LDL-C is now calculated using the Anil-Goyo calculation, which is a validated novel method providing better accuracy than the Friedewald equation in the estimation of LDL-C. Anil ARREOLA et al. BJORN. 2013;310(19): 9578-8828 (http://education.AdAdapted/faq/YYY556) CHOL/HDLC RATIO 11.8(H) <5.0 (calc) [facility] NON HDL CHOLESTEROL 423(H) <130 mg/dL (calc) [facility] Comment: Non-HDL level > or = 220 [...] considered a therapeutic option. 03/22/2024 9:28 AM LITHOGRAPHIC PROOFER 03/22/2024 9:28 AM LITHOGRAPHIC PROOFER us Kit RESTREPO CHEMISTRY Final Resul t Performing Organization Address City/[facility]/ZIP Co de Phone Number [facility] [address] [address], [facility] [address] [place] [address] * (ABNORMAL) IRON PLUS IRON BINDING CAP (03/22/2024 9:28 AM LITHOGRAPHIC PROOFER) [facility] IRON, TOTAL 85 40 - 190 mcg/dL [facility] IRON BINDING CAPACITY 179(L) 250 - 450 mcg/dL (calc) [facility] % SATURATION 47(H) 16 - 45 % (calc) [facility] Blood BLOOD SPECIMEN / Unknown 03/22/2024 9:28 AM LITHOGRAPHIC PROOFER 03/22/2024 9:28 AM LITHOGRAPHIC PROOFER us Kit RESTREPO CHEMISTRY Final Resul t [facility] [address] [place] [address], [place] [phone] [facility] [address] [place] [address] * (ABNORMAL) CBC AND DIFFERENTIAL (03/22/2024 9:28 AM LITHOGRAPHIC PROOFER) [facility] WHITE BLOOD CELL COUNT 12.1(H) 3.8 [...] BLOOD SPECIMEN / Unknown 03/22/2024 9:28 AM LITHOGRAPHIC PROOFER 03/22/2024 9:28 AM LITHOGRAPHIC PROOFER Kit RESTREPO HEMATOLOGY Final Resul t [facility] [address] [place] [address], [place] [phone] [facility] [address] [place] [address] * (ABNORMAL) FERRITIN (03/22/2024 9:28 AM LITHOGRAPHIC PROOFER) FERRITIN 868(H) 16 - 232 ng/mL [facility] wali [facility] Blood BLOOD SPECIMEN / Unknown 03/22/2024 9:28 AM LITHOGRAPHIC PROOFER 03/22/2024 9:28 AM LITHOGRAPHIC PROOFER Kit RESTREPO CHEMISTRY Final Resul t Performing Organization Address [facility]/ZIP Co de Phone Number [facility] [address] [place] [address], [place] [phone] [facility] [address] [place] [address] * (ABNORMAL) COMP METABOLIC PANEL (03/22/2024 9:28 AM LITHOGRAPHIC PROOFER) GLUCOSE 88 65 - 99 mg/dL [facility] [...] BLOOD SPECIMEN / Unknown 03/22/2024 9:28 AM LITHOGRAPHIC PROOFER 03/22/2024 9:28 AM LITHOGRAPHIC PROOFER us Kit RESTREPO CHEMISTRY Final Resul t [facility] [address] [place] [address], [facility] [address] * XR MAMMO HEIDE BILAT SCREEN IMPLANT (03/03/2024 8:38 AM LITHOGRAPHIC PROOFER) Anatomical Region Laterality Modality BREASTS, Breast Left, Breast Right Bilateral Mammography Impressions 03/03/2024 11:45 AM LITHOGRAPHIC PROOFER There is no radiographic evidence for malignancy. Recommend annual mammograms. MAMMOGRAM ASSESSMENT: ACR 2 Benign PATIENTS: You will also receive a letter with your examination results in an easy to read format. If you have questions about your results, please contact your referring provider. Narrative 03/03/2024 11:45 AM LITHOGRAPHIC PROOFER For Patients: As a result of the Century Cures Act, medical imaging exams and procedure reports are released immediately into your electronic medical record. You may view this report before your referring provider. If you have questions, please contact your health care provider. XR MAMMO HEIDE BILAT SCREEN IMPLANT [[id number]] CLINICAL HISTORY: This is an asymptomatic 48 [...] (ABNORMAL) BASIC METABOLIC PANEL (03/02/2024 11:24 AM LITHOGRAPHIC PROOFER) GLUCOSE 68 65 - 99 mg/dL [facility] [...] BLOOD SPECIMEN / Unknown 03/02/2024 11:24 AM LITHOGRAPHIC PROOFER 03/02/2024 11:24 AM LITHOGRAPHIC PROOFER Narrative [facility] - 03/03/2024 5:09 AM LITHOGRAPHIC PROOFER FASTING:YES FASTING: YES Kit RESTREPO CHEMISTRY Final Resul t [facility] [address] [place] [address], [facility] [address] [place] [address] * SDNA-FIT EXTERNAL (COLOGUARD) (12/11/2021 9:00 PM CDT) NONINV COLON CA DNA+OCC BLD SCRN STL-IMP Negative Negative 12/17/2021 4:48 PM CDT [place] (CLIA #:[id number]) Comment: NEGATIVE TEST RESULT. A negative Cologuard [...] Cameron et al, N Engl J Med 2014;370(14):8140-9622) The normal value (reference range) for this [...] Cancer Society Guideline for Colorectal Cancer Screening: https://www.cancer.org/cancer/hiaqp-yhojpy-ddyjwr/twkqqwafv-cnxyzqnhk-xmndwbz/ac s-rec ommendations.html.; Adam DK, Wily CR, Odin RENEE, Colorectal Cancer Screening: Recommendations for Physicians and Patients from the U.S. Multi-Society Task Force on Colorectal Cancer Screening , Am J Gastroenterology 2017; 112:1481-2383. TEST DESCRIPTION: Composite algorithmic analysis of stool [...] Cameron et al, N Engl J Med 2014;370(14):7041-3129.) Cologuard may produce a false negative or [...] can be accessed at the following location: www.Medpricer.com.com/results. Additional description of the Cologuard test process, warnings and precautions can be found at www.FisocogPolicyGeniusrd.com. Stool specimen (specimen) (Rectum) 12/11/2021 9:00 PM CDT 12/13/2021 5:43 PM CDT us Kit RESTREPO URINE Final Resul t [place] (CLIA #:[id number]) [place] [place] [address], * HPV HIGH RISK (11/26/2021 9:52 AM CDT) TYPE 16 Negative Negative 11/29/2021 1:20 PM CDT [facility] TYPE 18 Negative Negative 11/29/2021 1:20 PM CDT [facility] TRA [facility]ORAT[facility] OTHER HIGH RISK TYPES Negative Negative 11/29/2021 1:20 PM CDT [facility] Other (Cervical) Non-Blood / Unknown 11/26/2021 9:52 AM CDT 11/27/2021 3:45 PM CDT Narrative [facility] - 11/29/2021 1:20 PM CDT HPV types 16, 18, 31, 33, 35, 39, 45, 51, 52, 56, 58, 59, 66 and 68 DNA were undetectable or below the pre-set threshold. Methodology: Grace Gabo 4800 HPV Test Kit RESTREPO MICROBIOLOGY Final Resul t Performing Organization Address [facility] Co de Phone Number [facility] [address] [place] [address], * ANTI HCV (11/26/2021 9:10 AM CDT) HEPATITIS C ANTIBODY Non-React josafat Non-React josafat 11/27/2021 6:23 PM CDT [facility] Comment:Antibodies to HCV no t detected; does not exclude the possibility of exposure to HCV. Blood BLOOD SPECIMEN / Unknown Venipuncture / Unknown 11/26/2021 9:10 AM CDT 11/26/2021 9:10 AM CDT Kit RESTREPO SEND OUTS Final Resul t Performing Organization Address City/[facility]/ZIP Co de Phone Number [facility] [address] [place] [address], from Last 3 Months or Most Recently Relevant to Health Maintenance Insurance [facility] Care Teams Donor Floor Technician Relationship Specialty [place] [address] [place] [address] PCP - General Family Practice 11/19/14
--- OUTSIDE RECORDS SUMMARY | 2024-04-08 16:57 | XMS_ITS | Clinical Summary ---
Author Organization [facility] Address [address] [place] [id number] Care Team Providers Care Stenocaptioner Name Role Phone Kit Carmen PA-C Primary Care Provider [phone] Allergies No known active allergies Medications ondansetron (ZOFRAN ODT) 4 MG ODT tab Take 1 tablet (4 mg) by mouth every 8 hours as needed for nausea or vomiting. 10 tablet 02/20/2024 Active Encounters Date Type Department Care Team Description 02/20/2024 12:37 AM CONTENT ADMINISTRATOR - 02/20/2024 2:35 AM [facility] Emergency [facility] Emergency Dept [address] [place] [address] Vinod Ellis MD Vomiting, unspecified vomiting type, [...] on file Legal Sex Female 3:27 AM CONTENT ADMINISTRATOR Gender Identity Not on file Sexual Orientation Not on file Last Filed Vital Signs Vital Sign Reading Time Taken Comments Blood Pressure 127/81 02/20/2024 1:05 AM CONTENT ADMINISTRATOR Pulse 115 02/20/2024 1:05 AM CONTENT ADMINISTRATOR Temperature 37.3 C (99.1 F) 02/19/2024 8:40 PM CONTENT ADMINISTRATOR Respiratory Rate 20 02/19/2024 8:40 PM CONTENT ADMINISTRATOR Oxygen Saturation 99% 02/20/2024 1:05 AM CONTENT ADMINISTRATOR Inhaled Oxygen Concentration - - Weight 58.6 kg (129 lb 3 oz) 02/19/2024 8:40 PM CONTENT ADMINISTRATOR Height 167.6 cm (5' 6) 02/19/2024 8:40 PM CONTENT ADMINISTRATOR Body Mass Index 20.85 02/19/2024 8:40 PM CONTENT ADMINISTRATOR Plan of Treatment Health Maintenance Due [...] PELVIS W CONTRAST STAT 02/19/2024 11:13 PM CONTENT ADMINISTRATOR CBC WITH PLATELETS & DIFFERENTIAL STAT 02/19/2024 8:53 PM CONTENT ADMINISTRATOR HEMOGLOBIN A1C Add-On 02/19/2024 8:53 PM CONTENT ADMINISTRATOR LIPASE STAT 02/19/2024 8:53 PM CONTENT ADMINISTRATOR CBC WITH PLATELETS AND DIFFERENTIAL STAT 02/19/2024 8:53 PM CONTENT ADMINISTRATOR EXTRA BLUE TOP TUBE STAT 02/19/2024 8 :53 PM CONTENT ADMINISTRATOR COMPREHENSIVE METABOLIC PANEL STAT 02/19/2024 8:53 PM CONTENT ADMINISTRATOR HCG QUALITATIVE STAT 02/19/2024 8:53 PM CONTENT ADMINISTRATOR EXTRA TUBE STAT 02/19/2024 8:53 PM CONTENT ADMINISTRATOR MA DIAGNOSTIC WITH IMPLANTS BILATERAL W/ ARI Routine 09/09/2022 10:57 AM CDT Subareolar mass of left breast from Last 3 Months or Most Recently Relevant to Health Maintenance Results * CT Abdomen Pelvis w Contrast (02/19/2024 11:13 PM CONTENT ADMINISTRATOR) Anatomical Region Laterality Modality Abdomen/Pelvis, SUBRAD CT RUPERTO DY, UMP CT ABDOMEN PELVIS, RAD CT Computed Tomography 02/19/2024 11:1 3 PM CONTENT ADMINISTRATOR Impressions 02/19/2024 11:39 PM CONTENT ADMINISTRATOR IMPRESSION: 1. No acute findings or inflammatory changes in the abdomen or pelvis. 2. Morphologic changes of cirrhosis. Small abdominal varices, including patent periumbilical vein and gastroesophageal varices, suggesting portal hypertension. Trace pelvic ascites. Narrative 02/19/2024 11:39 PM CONTENT ADMINISTRATOR EXAM: CT ABDOMEN PELVIS W CONTRAST LOCATION: [facility] DATE: 02/19/2024 INDICATION: Recurrent abdominal pain, [...] EXAM: CT ABDOMEN PELVIS W CONTRAST LOCATION: [facility] DATE: 02/19/2024 INDICATION: Recurrent abdominal pain, [...] Extra Blue Top Tube (02/19/2024 8:53 PM CONTENT ADMINISTRATOR) [facility] Hold Specimen [facility] 02/19/2024 10:31 PM CONTENT ADMINISTRATOR LABORATORY Blood BLOOD SPECIMEN / Unknown Venipuncture / Unknown 02/19/2024 8:53 PM CONTENT ADMINISTRATOR 02/19/2024 9:18 PM CONTENT ADMINISTRATOR Vinod Ellis MD LAB - BLOOD ORDERABLES Final Result LABORATORY [facility] [address] [facility] Lab (1st floor, no room number) [place] [address] * (ABNORMAL) CBC with platelets and differential (02/19/2024 8:53 PM CONTENT ADMINISTRATOR) [facility] WBC Count 11.3(H) 4.0 - 11.0 10e3/uL 02/19/2024 9:26 PM CONTENT ADMINISTRATOR [facility] LABORATORY RBC Count 3.50(L) 3.80 - 5.20 10e6/uL 02/19/2024 9:26 PM CONTENT ADMINISTRATOR [facility] LABORATORY Hemoglobin 11.7 11.7 - 15.7 g/dL 02/19/2024 9:26 PM CONTENT ADMINISTRATOR [facility] LABORATORY Hematocrit 34.8(L) 35.0 - 47.0 % 02/19/2024 9:26 PM CONTENT ADMINISTRATOR [facility] LABORATORY MCV 99 78 - 100 fL 02/19/2024 9:26 PM CONTENT ADMINISTRATOR LABORATORY MCH 33.4(H) 26.5 - 33.0 pg 02/19/2024 9:26 PM CONTENT ADMINISTRATOR [facility] LABORATORY MCHC 33.6 31.5 - 36.5 g/dL 02/19/2024 9:26 PM CONTENT ADMINISTRATOR [facility] LABORATORY RDW 14.2 10.0 - 15.0 % 02/19/2024 9:26 PM CONTENT ADMINISTRATOR [facility] LABORATORY Platelet Count 171 150 - 450 10e3/uL 02/19/2024 9:26 PM CONTENT ADMINISTRATOR [facility] LABORATORY % Neutrophils 79 % 02/19/2024 9:26 PM CONTENT ADMINISTRATOR [facility] LABORATORY % Lymphocytes 13 % 02/19/2024 9:26 PM CONTENT ADMINISTRATOR [facility] LABORATORY % Monocytes 7 % 02/19/2024 9:26 PM CONTENT ADMINISTRATOR [facility] LABORATORY % Eosinophils 0 % 02/19/2024 9:26 PM CONTENT ADMINISTRATOR [facility] LABORATORY % Basophils 1 % 02/19/2024 9:26 PM CONTENT ADMINISTRATOR [facility] LABORATORY % Immature Granulocytes 0 % 02/19/2024 9:26 PM CONTENT ADMINISTRATOR [facility] LABORATORY NRBCs per 100 WBC 0 <1 /100 024 9:26 PM CONTENT ADMINISTRATOR [facility] LABORATORY Absolute Neutrophils 8.9(H) 1.6 - 8.3 10e3/uL 02/19/2024 9:26 PM CONTENT ADMINISTRATOR [facility] LABORATORY Absolute Lymphocytes 1.4 0.8 - 5.3 10e3/uL 02/19/2024 9:26 PM CONTENT ADMINISTRATOR [facility] LABORATORY Absolute Monocytes 0.7 0.0 - 1.3 10e3/uL 02/19/2024 9:26 PM CONTENT ADMINISTRATOR [facility] LABORATORY Absolute Eosinophils 0.0 0.0 - 0.7 10e3/uL 02/19/2024 9:26 PM CONTENT ADMINISTRATOR [facility] LABORATORY Absolute Basophils 0.1 0.0 - 0.2 10e3/uL 02/19/2024 9:26 PM CONTENT ADMINISTRATOR [facility] LABORATORY Absolute Immature Granulocytes 0.0 <=0.4 10e3/uL 02/19/2024 9:26 PM CONTENT ADMINISTRATOR [facility] LABORATORY Absolute NRBCs 0.0 10e3/uL 02/19/2024 9:26 PM CONTENT ADMINISTRATOR [facility] LABORATORY Blood BLOOD SPECIMEN / Unknown Venipuncture / Unknown 02/19/2024 8:53 PM CONTENT ADMINISTRATOR 02/19/2024 9:18 PM CONTENT ADMINISTRATOR Brody Richards MD LAB - BLOOD ORDERABLES Final Result [facility] LABORATORY [facility] [address] Lab (1st floor, no room number) [place] [address] * (ABNORMAL) Lipase (02/19/2024 8:53 PM CONTENT ADMINISTRATOR) [facility] Lipase 347(H) 13 - 60 U/L 02/20/2024 2:11 AM CONTENT ADMINISTRATOR LABORATORY Blood BLOOD SPECIMEN / Unknown Venipuncture / Unknown 02/19/2024 8:53 PM CONTENT ADMINISTRATOR 02/19/2024 9:18 PM CONTENT ADMINISTRATOR Vinod Ellis MD LAB - BLOOD ORDERABLES Final Result [facility] [address] Lab (1st floor, no room number) [place] [address] * Hemoglobin A1c (02/19/2024 8:53 PM CONTENT ADMINISTRATOR) [facility] Estimated Average Glucose 108 <117 mg/dL 02/20/2024 2:39 AM CONTENT ADMINISTRATOR LABORATORY Hemoglobin A1C 5.4 <5.7 % 02/20/2024 2:39 AM CONTENT ADMINISTRATOR LABORATORY Comment: Normal <5.7% Prediabetes 5.7-6.4% Diabetes 6.5% or higher Note: Adopted from ADA consensus guidelines. Blood BLOOD SPECIMEN / Unknown Venipuncture / Unknown 02/19/2024 8:53 PM CONTENT ADMINISTRATOR 02/19/2024 9:18 PM CONTENT ADMINISTRATOR Vinod Ellis MD LAB - BLOOD ORDERABLES Final Result [facility] [address] Lab (1st floor, no room number) [place] [address] * HCG QUALitative (blood) (02/19/2024 8:53 PM CONTENT ADMINISTRATOR) [facility] hCG Serum Qualitative Negative Negative NOHEMI 02/19/2024 10:00 PM CONTENT ADMINISTRATOR LABORATORY Comment:This test is for scr eening purposes. Results should be interpreted along with the clinical picture. Confirmation testing is available if warranted by ordering [id number], HCG Quantitative . Blood BLOOD SPECIMEN / Unknown Venipuncture / Unknown 02/19/2024 8:53 PM CONTENT ADMINISTRATOR 02/19/2024 9:18 PM CONTENT ADMINISTRATOR us Brody Richards MD LAB - BLOOD ORDERABLES Final Result LABORATORY [facility] [address] Lab (1st floor, no room number) [place] [address] * (ABNORMAL) Comprehensive metabolic panel (02/19/2024 8:53 PM CONTENT ADMINISTRATOR) Sodium 135 135 - 145 mmol/L 02/19/2024 9:43 PM CONTENT ADMINISTRATOR LABORATORY Potassium 4.1 3.4 - 5.3 mmol/L 02/19/2024 9:43 PM CONTENT ADMINISTRATOR LABORATORY Carbon Dioxide (CO2) 19(L) 22 - 29 mmol/L 02/19/2024 9:43 PM [facility] LABORATORY Anion Gap 21(H) 7 - 15 mmol/L 02/19/2024 9:43 PM CONTENT ADMINISTRATOR LABORATORY Urea Nitrogen 10.0 6.0 - 20.0 mg/dL 02/19/2024 9:43 PM CONTENT ADMINISTRATOR LABORATORY Creatinine 0.65 0.51 - 0.95 mg/dL 02/19/2024 9:43 PM CONTENT ADMINISTRATOR LABORATORY GFR Estimate >90 >60 mL/min/1.7 3m2 02/19/2024 9:43 PM CONTENT ADMINISTRATOR LABORATORY Comment:eGFR calculated usin g 2020 CKD-EPI equation. Calcium 9.7 8.8 - 10.4 mg/dL 02/19/2024 9:43 PM CONTENT ADMINISTRATOR LABORATORY Comment:Reference intervals for this test were updated on 09/07/2023 to reflect our healthy population more accurately. There may be differences in the flagging of prior results with similar values performed with this method. Those prior results can be interpreted in the context of the updated reference intervals. Chloride 95(L) 98 - 107 mmol/L 02/19/2024 9:43 PM CONTENT ADMINISTRATOR LABORATORY Glucose 144(H) 70 - 99 mg/dL 02/19/2024 9:43 PM CONTENT ADMINISTRATOR [facility] LABORATORY Alkaline Phosphatase 153(H) 40 - 150 U/L 02/19/2024 9:43 PM CONTENT ADMINISTRATOR [facility] LABORATORY AST 216(H) 0 - 45 U/L 02/19/2024 9:43 PM CONTENT ADMINISTRATOR LABORATORY ALT 44 0 - 50 U/L 02/19/2024 9:43 PM CONTENT ADMINISTRATOR LABORATORY Protein Total 8.6(H) 6.4 - 8.3 g/dL 02/19/2024 9:43 PM CONTENT ADMINISTRATOR LABORATORY Albumin 3.8 3.5 - 5.2 g/dL 02/19/2024 9:43 PM CONTENT ADMINISTRATOR LABORATORY Bilirubin Total 4.0(H) <=1.2 mg/dL 02/19/2024 9:43 PM CONTENT ADMINISTRATOR LABORATORY Blood BLOOD SPECIMEN / Unknown Venipuncture / Unknown 02/19/2024 8:53 PM CONTENT ADMINISTRATOR 02/19/2024 9:18 PM CONTENT ADMINISTRATOR us Brody Richards MD LAB - BLOOD ORDERABLES Final Result LABORATORY [facility] [address] [facility] Lab (1st floor, no room number) [place] [address] * MA Diagnostic with Implants Bilateral [...] Most Recently Relevant to Health Maintenance Insurance [facility] Care Teams Stenocaptioner Relationship Specialty Start Date End Date Kit Carmen PA-C [facility] [id number] [place], [place] [phone] PCP - General Physician Chief Learning Officer 08/24/17
[2024-04-08 17:03] LABS: Basophils Absolute Auto 0.02 K/uL (0.00-0.30); Basophils Percent Auto 0.2 % (0.0-3.0); Eosinophils Percent Auto 0.9 % (0.0-7.0); Hematocrit 28.5 % (33.0-51.0); Hemoglobin* 9.5 gm/dL (12.0-16.0); Immature Granulocytes Abs Auto 0.01 K/uL (0.00-0.30); Immature Granulocytes Pct Auto 0.1 %; Lymphocytes Absolute Auto 2.12 K/uL (0.90-2.90); Mean Corpuscular HGB Conc 33 gm/dL (32-36); Mean Corpuscular Hemoglobin 34 pg (26-34); Mean Corpuscular Volume 103 fL (80-100); Monocytes Percent Auto 8.9 % (0.0-11.0); Neutrophils Absolute Auto 7.43 K/uL (1.7-7.0); Neutrophils Percent Auto 69.9 % (42.0-72.0); Platelet Count* 133 K/uL (140-440); Red Blood Count 2.77 m/uL (4.00-5.20); White Blood Count* 10.62 K/uL (4.50-11.00)
[2024-04-08 17:06] LABS: Slide Review Reflex No
[2024-04-08 17:15] LABS: Albumin* 3.7 g/dL (3.3-5.0)
[2024-04-08 17:16] LABS: Chloride* 98 mmol/L (96-114); Potassium* 3.8 mmol/L (3.6-5.1); Sodium* 130 mmol/L (135-149)
[2024-04-08 17:18] LABS: Alkaline Phosphatase* 108 U/L (40-150); Anion Gap 12 mEq/L (7-15); Aspartate Amino Transferase* 87 U/L (12-35); Bilirubin Direct* 1.9 mg/dL (0.0-0.5); Bilirubin Total* 6.3 mg/dL (0.1-1.5); Blood Urea Nitrogen* 8 mg/dL (5-24); Carbon Dioxide* 20 mmol/L (20-32); Creatinine* 0.7 mg/dL (0.5-1.5); Est. Creatinine Clearance* 91.49; Estimated Glomerular Filt Rate 107 ml/min; Glucose* 91 mg/dL (60-115); Total Protein* 7.8 g/dL (6.0-8.3)
[2024-04-08 17:19] LABS: Alanine Aminotransferase* 25 U/L (4-35); Calcium* 9.1 mg/dL (8.4-10.6); Lipase* 561 U/L (23-300)
[2024-04-08] MEDS: LORazepam 2 MG/ML inj 0.5 MG IV (18:55)
--- NOTE | 2024-04-08 20:16 | PM.IMHP1 ---
Hospitalist- H&P: HPI History of Present Illness Date Seen: 04/08/24 Chief complaint: SOB, pain at liver biopsy location. Narrative: Lia Banerjee is a 48 year old female past medical history significant for hypertension, hyperlipidemia, supraventricular tachycardia controlled on a beta-kashif, alcohol use disorder, transaminitis is admitted to the medical floor from the ED for abdominal pain in setting of abdominal hemorrhage. Patient reports onset of abdominal pain today. Prior to this denies any significant abdominal pain like she experienced today. She underwent a liver biopsy yesterday at [facility] in [place]. She was told bleeding could be an adverse event. Pain has been in the right upper quadrant. She has not had any nausea or vomiting today. No bowel movement for 3-4 days. Denies UTI symptoms. Denies headache or dizziness. Denies chest pain or shortness of breath. No recent fevers. Other than the abdominal pain, patient is reports nausea and vomiting, almost on a daily basis for the past 6 months. This started after initiation of Wegovy. She started this with her PCP in the setting of chronic hypertension and hyperlipidemia and the goal to lose some weight. She also reports a history of daily drinking for years, typically 1-2 glasses of wine daily. She tells me her liver enzymes have been elevated for at least 4 years and she was encouraged to cut back on her drinking. She has now since stopped drinking and is no longer using a semaglutide. In the ED, total bilirubin 6.3, and direct bilirubin 1.9, lipase 561, CT abdomen pelvis shows Moderate amount of abdominopelvic ascites that appears slightly dense. This most likely reflects hemorrhage. Active hemorrhage not seen. ED provider discussed with Dr. Mcdowell, [facility], as well as Dr. Reyes, [facility]. Both recommending local hospitalization with observation, repeat labs. Nonsmoker. Daily alcohol use. Her PCP is Luisito Carmen PA-C, [facility]. Review of Systems Narrative: REVIEW OF SYSTEMS: Complete review of systems performed and negative unless otherwise stated in HPI or below. [facility] Medical History (Updated 04/08/24 @ 23:41 by Ángela Navas PA-C) Elevated lipase ?R74.8 - Abnormal levels of other serum enzymes (ICD-10) Alcohol use ?F10.90 - Alcohol use, unspecified, uncomplicated (ICD-10) Abdominal pain ?R10.9 - Unspecified abdominal pain (ICD-10) Transaminitis ?R74.01 - Elevation of levels of liver transaminase levels (ICD-10) Overweight ?E66.3 - Overweight (ICD-10) Supraventricular tachycardia ?I47.10 - Supraventricular tachycardia, unspecified (ICD-10) Cirrhosis of liver ?K74.60 - Unspecified cirrhosis of liver (ICD-10) Hyperlipidemia ?E78.5 - Hyperlipidemia, unspecified (ICD-10) Hypertension ?I10 - Essential (primary) hypertension (ICD-10) Uncontrollable nausea and vomiting ?R11.2 - Nausea with vomiting, unspecified (ICD-10) Sore throat ?J02.9 - Acute pharyngitis, unspecified (ICD-10) Social History What is your current living situation?: I presently have a place to live Problems where you live: no known problems Problems where you live details: N/A In the past 12 months, utilities in danger of being shut off: no In past 12 months, lack of transportation kept you from medical appts, meetings, work, or getting things needed for daily living: no In the past 12 mos, have been you worried that your food would run out before you had money to buy more?: never true In the past 12 mos, the food you bought just didn't last and you didn't have money to buy more?: never true Highest level of school completed/degree received: Bachelor's degree Smoking Status: Never smoker How often do you have a drink containing alcohol: never How many standard drinks containing alcohol do you have on a typical day: 3 or 4 How often do you have six or more drinks on one occasion: Weekly AUDIT-C Alcohol total score: 4 Non-prescribed substance use: denies use Caffeine: Yes How often does anyone, including family, friends and others, physically hurt you: never How often does anyone, including family, friends and others, insult or talk down to you: never How often does anyone, including family, friends and others, threaten you with harm: never How often does anyone, including family, friends and others, scream or curse at you: never service: No Meds Home Medications and Allergies Home Medications ?Medication ?Instructions ?Recorded ?Confirmed ?Type atorvastatin 20 mg tablet 20 mg PO QDAY 02/28/22 04/08/24 History lisinopril 20 1 tab PO QDAY 02/28/22 04/08/24 History mg-hydrochlorothiazide 12.5 mg tablet metoprolol succinate 25 mg 25 mg PO DAILY 02/28/22 04/08/24 History tablet,extended release 24 hr levothyroxine 25 mcg tablet 25 mcg PO DAILY 08/13/22 04/08/24 History progesterone micronized 200 mg 400 mg PO DAILY 08/13/22 04/08/24 History capsule semaglutide (weight loss) 0.25 0.25 mg subcut 04/08/24 History mg/0.5 mL subcutaneous pen injector (Wegovy) Allergies Allergy/AdvReac Type Severity Reaction Status Date / Time No Known Drug Allergies Allergy Verified 04/08/24 16:20 Exam Narrative: Exam Narrative: PHYSICAL EXAM General: Pleasant, conversant, NAD HEENT: Normocephalic, atraumatic, sclera white, EOMI, oral mucosa moist Cardiovascular: RRR, S1S2. No pitting edema Pulmonary: CTA bilaterally without rhonchi, rales, expiratory wheezes. No dyspnea Abdominal: Soft, nondistended, mildly tender right upper quadrant, suprapubic region Neurological: Alert, answering questions appropriately, cranial nerves intact, no focal findings Extremities: No gross joint deformity or swelling. AROMI. Neurovascularly intact Skin: Warm, dry. Const: Vital Signs, click to edit/add: Vital Signs - 24 hr 04/08/24 16:11 04/08/24 17:26 04/08/24 17:32 Temperature 98.4 F Pulse Rate 87 85 Pulse Rate [Left P ulse Oximeter] Pulse Rate [Pulse Oximeter] 98 Respiratory Rate 18 Blood Pressure 101/66 104/63 Blood Pressure [Ri ght Arm] Blood Pressure [Ri ght Upper Arm] 91/54 L Pulse Oximetry 97 100 100 Oxygen Delivery Me thod Room Air 04/08/24 18:00 04/08/24 18:01 04/08/24 18:15 Temperature Pulse Rate 92 93 90 Pulse Rate [Left P ulse Oximeter] Pulse Rate [Pulse Oximeter] Respiratory Rate Blood Pressure 97/62 Blood Pressure [Ri ght Arm] Blood Pressure [Ri ght Upper Arm] Pulse Oximetry 100 100 100 Oxygen Delivery Me thod 04/08/24 18:30 04/08/24 18:31 04/08/24 19:54 Temperature 99.2 F Pulse Rate 92 101 H Pulse Rate [Left P ulse Oximeter] 98 Pulse Rate [Pulse Oximeter] Respiratory Rate 18 16 Blood Pressure 108/83 Blood Pressure [Ri ght Arm] 97/52 L Blood Pressure [Ri ght Upper Arm] Pulse Oximetry 100 100 100 Oxygen Delivery Tn thod Room Air Hospitalist - H&P: Result Labs Labs: Short CBC 04/08/24 Range/Units 16:56 WBC 10.62 (4.50-11.00) K/uL Hgb 9.5 L (12.0-16.0) gm/dL Hct 28.5 L (33.0-51.0) % Plt Count 133 L (140-440) K/uL BMP 04/08/24 16:56 Sodium 130 L Potassium 3.8 Chloride 98 Carbon Dioxide 20 BUN 8 Creatinine 0.7 Glucose 91 Calcium 9.1 Liver Function 04/08/24 Range/Units 16:56 Total Bilirubin 6.3 H (0.1-1.5) mg/dL Direct Bilirubin 1.9 H (0.0-0.5) mg/dL AST 87 H (12-35) U/L ALT 25 (4-35) U/L Alkaline Phosphatase 108 (40-150) U/L Albumin 3.7 (3.3-5.0) g/dL Imaging CT abd/pelvis: Attestation: I have reviewed the pertinent imaging results. Radiologist's impression: Lower chest: Bilateral breast implants. Liver: Nodular contour to liver. This can be seen with cirrhosis. Gallbladder and bile ducts: No stones or inflammation. No biliary dilatation. Pancreas: Unremarkable. No mass or inflammation. Spleen: Normal in size. No masses. Adrenal glands: Normal in size. No nodules. Kidneys: Normal in size. No suspicious masses, Or hydronephrosis. Punctate nonobstructing right renal calculus. GI tract: Unremarkable. Normal in caliber. No sign of mass or inflammation. Normal appendix. Vasculature: Abdominal aorta is normal in caliber. Recanalized umbilical vein. Small abdominal varices gastroesophageal varices Lymph nodes: No lymphadenopathy. Peritoneum/Abdominal Wall: There is a moderate amount of abdominopelvic ascites that appears densities likely reflects hemorrhage. Pelvis: Diffuse wall thickening of the urinary bladder focus of air in the urinary bladder. Correlate with recent instrumentation. Bladder is not completely distended. Bones: Unremarkable for age. IMPRESSION: 1. Moderate amount of abdominopelvic ascites that appears slightly dense. This most likely reflects hemorrhage. Active hemorrhage not seen. 2. Cirrhotic morphology liver. Recanalized umbilical vein upper abdominal varices and gastroesophageal, periumbilical varices. Findings of portal hypertension. 3. Wall Thickening of the urinary bladder, incompletely distended. Focus of air in the urinary bladder correlate with recent instrumentation. Assessment and Plan Assessment and plan (1) Hemoperitoneum: Problem comment: -s/p liver bx 04/07/2024 at [facility] in [place] -CT shows moderate amount of abdominal pelvic ascites that appears slightly dense. Most likely reflects hemorrhage. Active hemorrhage not seen -ED provider discussed with GI as well as General surgery, okay to admit locally for observation. If new or worsening symptoms, or continued down trend of hemoglobin, recommended to contact Dr. Floyd, [facility], at [phone] -general surgery consult tomorrow -query need for abdominal ultrasound in the morning Status: Acute (2) Abdominal pain: Problem comment: -in setting of abdominal pelvic ascites suspected to be hemorrhage without active bleeding -pain and nausea management as needed Status: Acute (3) Anemia: Problem comment: -acute blood loss suspected -hemoglobin 9.5, previously 11.1 in February -recheck in a.m., follow-up with GI if continues to down trend Status: Acute (4) Cirrhosis of liver: Problem comment: -CT shows Cirrhotic morphology liver. Recanalized umbilical vein upper abdominal varices and gastroesophageal, periumbilical varices. Findings of portal hypertension. -being followed by [facility]. Has a consult with Hematology this coming week Status: Acute (5) Transaminitis: Problem comment: -total bili 6.3, direct bili 1.9, AST 87, ALT 25, alk-phos 108 -Labs 1 month ago show total bilirubin 4, AST 216 alk-phos 153 -Followed by [facility] Status: Chronic (6) Overweight: Problem comment: -Has been on semaglutide for 6 months, last dose was end of February 2024 Status: Chronic (7) Hypertension: Problem comment: -Continue metoprolol and lisinopril-HCTZ Status: Chronic (8) Hyperlipidemia: Problem comment: -Hold atorvastatin Status: Chronic (9) Supraventricular tachycardia: Problem comment: -Continue metoprolol -PCP has recommended outpatient cardiology follow-up Status: Chronic (10) Alcohol use: Problem comment: -reports 1-2 drinks nightly, sometimes more. Elevated liver enzymes for at least 4 years -last drink was 03/16/2024 Status: Chronic (11) Elevated lipase: Problem comment: -lipase 561, previously 1024, 375 in 2022 Status: Chronic Total Time Spent Total Time Spent: Today I spent 75 minutes seeing the patient, discussing the patient with ER staff, reviewing Expanse and Epic notes/diagnostics, discussing the care plan with our team that includes social work, PT/OT, pharmacy, RT, snf and documenting my impressions and plan in the medical record.
[2024-04-08] MEDS: 0.9 % SODIUM CHLORIDE 1000 ml 1,000 ML 200 ML IV (21:42)
[2024-04-08] MEDS: PANTOPRAZOLE SODIUM 40 MG INJ IVP (21:47)
[2024-04-08] MEDS: SENNOSIDES/DOCUSATE TABLET 1 TAB PO (21:48)
[2024-04-08] MEDS: SODIUM CHLORIDE 0.9 % (FLUSH) 10 ML SYRINGE 5 ML IVF (21:48)
[2024-04-08] MEDS: OXYCODONE 5 MG TABLET PO (21:48)
[2024-04-08] MEDS: MELATONIN 3 MG TABLET PO (21:49)
[2024-04-08 22:20] LABS: Appearance Urine Clear (Clear); Bilirubin Urine Negative (Negative); Blood Urine 1+ (Negative); Color Urine Yellow (Yellow); Glucose Urine Negative (Negative); Ketones Urine Negative (Negative); Leukocyte Esterase Urine 3+ (Negative); Nitrite Urine Negative (Negative); Protein Urine Trace (Negative); Specific Gravity Urine 1.015 (1.000-1.030); pH Urine 7.5 (5.0-8.5)
[2024-04-08 22:52] LABS: Bacteria Urine Many; Squamous Epithelial Cell Urine Few (None-Few); WBC Clumps Urine Many; WBC Urine >100 (0-5)
[2024-04-09] VITALS (9 sets, daily range): BP systolic 92–105; BP diastolic 56–67; PULSE 80–95; RESP 14–16; TEMP 36.8–37.4; O2SAT 97–100
[2024-04-09] MEDS: LEVOTHYROXINE 25 MCG TABLET PO (05:20)
[2024-04-09 06:35] LABS: Mean Corpuscular HGB Conc 33 gm/dL (32-36); Mean Corpuscular Hemoglobin 34 pg (26-34); Mean Corpuscular Volume 104 fL (80-100); Platelet Count* 115 K/uL (140-440); Red Blood Count 2.31 m/uL (4.00-5.20); White Blood Count* 12.77 K/uL (4.50-11.00)
[2024-04-09 06:53] LABS: Albumin* 3.1 g/dL (3.3-5.0); Chloride* 100 mmol/L (96-114); Potassium* 3.7 mmol/L (3.6-5.1); Sodium* 130 mmol/L (135-149)
[2024-04-09 06:56] LABS: Alanine Aminotransferase* 21 U/L (4-35); Alkaline Phosphatase* 95 U/L (40-150); Anion Gap 9 mEq/L (7-15); Aspartate Amino Transferase* 65 U/L (12-35); Bilirubin Total* 5.7 mg/dL (0.1-1.5); Blood Urea Nitrogen* 11 mg/dL (5-24); Calcium* 8.6 mg/dL (8.4-10.6); Carbon Dioxide* 21 mmol/L (20-32); Creatinine* 0.9 mg/dL (0.5-1.5); Est. Creatinine Clearance* 71.56; Estimated Glomerular Filt Rate 79 ml/min; Glucose* 93 mg/dL (60-115); Lipase* 465 U/L (23-300); Total Protein* 6.7 g/dL (6.0-8.3)
[2024-04-09 07:07] LABS: Hemoglobin* 7.9 gm/dL (12.0-16.0); Slide Review Reflex No
[2024-04-09] MEDS: OXYCODONE 5 MG TABLET PO (07:58)
[2024-04-09] MEDS: ONDANSETRON 2 MG/ML inj 4 MG IVP (07:59)
[2024-04-09 08:41] LABS: INR 1.55 (0.91-1.10); Prothrombin Time 19.6 Seconds
[2024-04-09] MEDS: SODIUM CHLORIDE 0.9 % (FLUSH) 10 ML SYRINGE 5 ML IVF (09:00)
--- NOTE | 2024-04-09 09:04 | PC.NURSE ---
CCU order put in, charge took over patient care. Hypotensive this morning, but asymptomatic, lungs clear, BS WNL, IV SL intact. Patient reported abdominal pain 7/10 and nausea, zophran and 5mg of oxy given. Patient appears yellow this MD jaclyn aware and assessed.
[2024-04-09] MEDS: PANTOPRAZOLE SODIUM 40 MG INJ IVP (09:43)
[2024-04-09] MEDS: METOCLOPRAMIDE HCL 5 MG/ML INJ 10 MG IVP (10:08)
[2024-04-09] MEDS: 0.9 % SODIUM CHLORIDE 500 ML 250 ML IV (10:31)
--- NOTE | 2024-04-09 11:40 | PC.NURSE ---
Patient level of care changed to CCU. Rating pain in abdomen 08/31. C/o nausea, updated MD and one time does of Reglan given. Tele showing NSR. Patient is NPO. One unit of PRBC started at 1022 and no s/s of transfusion reaction noted. Patient transferred to [place] at 1046 with all personal belongings by [facility]. Nurse to nurse report given by VLAD Tariq.
--- NOTE | 2024-04-09 11:43 | PM.DST ---
Transfer Discharge Sum: Prov Provider Time Seen by Provider: 07:47 Date Seen: 04/09/24 Date of admission: 04/09/24 08:26 Primary care physician: Kit Carmen PA-C Consults: 04/09/24 06:00 Consult to Physician [CONS] Routine Comment: Consulting Provider: General Surgery, [facility] Has provider been notified: No Attending physician on discharge: Tawana Schmidt Anticipated date of transfer: 04/09/24 Receiving physician/facility: Dr. Johann Peña DS: Diagnosis Discharge Diagnosis (1) Acute blood loss anemia: Status: Acute Problem details: - Hgb 11.1 in February, 9.5 on admission yesterday, 7.9 today - Associated with soft/low BP today - Suspect ongoing bleeding as below - Give 1 unit PRBC (2) Hemoperitoneum: Status: Acute Problem details: -s/p liver bx 04/07/2024 at [facility] in [place] -CT shows moderate amount of abdominal pelvic ascites that appears slightly dense. Most likely reflects hemorrhage. Active hemorrhage not seen -ED provider discussed with GI as well as General surgery, okay to admit locally for observation. If new or worsening symptoms, or continued down trend of hemoglobin, recommended to contact Dr. Floyd, [facility], at [phone] - Hgb down further. BPs soft/low. Patient more tender with ecchymosis and peritoneal signs noted. Concern for ongoing bleeding. I spoke with Dr. Reyes from general surgery and called Dr. Floyd, both of whom recommended transfer for angiogram, possible embolization. I called [facility] and spoke with Dr. Sanchez from who agreed with urgent transfer. He asked that I get an INR and CTA abdomen to look for active bleeding. I also spoke with Dr. Wills from hospital service who accepted this patient in transfer and suggested a unit of PRBC. I typed and crossed and gave 1 unit PRBC. (3) Cirrhosis of liver: Status: Acute Problem details: -CT shows Cirrhotic morphology liver. Recanalized umbilical vein upper abdominal varices and gastroesophageal, periumbilical varices. Findings of portal hypertension. -being followed by [facility]. Has a consult with Hematology this coming week (4) Transaminitis: Status: Chronic Problem details: -total bili 6.3, direct bili 1.9, AST 87, ALT 25, alk-phos 108 -Labs 1 month ago show total bilirubin 4, AST 216 alk-phos 153 -Followed by [facility] (5) Overweight: Status: Chronic Problem details: -Has been on semaglutide for 6 months, last dose was end of February 2024 (6) Hypertension: Status: Chronic Problem details: -hold metoprolol and lisinopril-HCTZ due to low BPs and concern for active bleeding (7) Hyperlipidemia: Status: Chronic Problem details: -Hold atorvastatin (8) Supraventricular tachycardia: Status: Chronic Problem details: -holding metoprolol due to low BP -PCP has recommended outpatient cardiology follow-up (9) Alcohol use: Status: Chronic Problem details: -reports 1-2 drinks nightly, sometimes more. Elevated liver enzymes for at least 4 years -last drink was 03/16/2024 (10) Elevated lipase: Status: Chronic Problem details: -lipase 561, previously 1024, 375 in 2022 (11) Uncontrollable nausea and vomiting: Status: Chronic Problem details: - ongoing - continue zofran prn Transfer Discharge Sum: Med Medications Active and Home Medications: Home Medications atorvastatin 20 mg tablet 20 mg PO HS 02/28/22 [History Confirmed 04/09/24] lisinopril 20 mg-hydrochlorothiazide 12.5 mg tablet 1 tab PO QDAY 02/28/22 [History Confirmed 04/08/24] metoprolol succinate 25 mg tablet,extended release 24 hr 25 mg PO DAILY 02/28/22 [History Confirmed 04/08/24] ondansetron 4 mg disintegrating tablet 4 mg PO Q6-8H PRN nausea and vomiting #30 tabs 02/28/22 [Rx Confirmed 04/08/24] levothyroxine 25 mcg tablet 25 mcg PO DAILY 08/13/22 [History Confirmed 04/08/24] progesterone micronized 200 mg capsule 400 mg PO HS 08/13/22 [History Confirmed 04/09/24] cetirizine 10 mg tablet 10 mg PO DAILY 04/09/24 [History Confirmed 04/09/24] Active Medications Bisacodyl (Bisacodyl 10 Mg Supp.Rect) 10 mg AL DAILY PRN Hydrochlorothiazide (Hydrochlorothiazide 12.5 Mg Capsule) 12.5 mg PO DAILY [facility] Last Admin: 04/09/24 09:33 Dose: Not Given Sodium Chloride (0.9 % Sodium Chloride 1000 Ml) 1,000 mls @ 75 mls/hr IV .[id number] [facility] Levothyroxine Sodium (Levothyroxine 25 Mcg Tablet) 25 mcg PO DAILY@0600 [facility] Last Admin: 04/09/24 05:20 Dose: 25 mcg Lisinopril (Lisinopril 20 Mg Tablet) 20 mg PO DAILY [facility] Last Admin: 04/09/24 08:57 Dose: Not Given Melatonin (Melatonin 3 Mg Tablet) 3 - 6 mg PO HS PRN Last Admin: 04/08/24 21:49 Dose: 3 mg Metoprolol Succinate (Metoprolol Succinate (Xl) 25 Mg Tab) 25 mg PO DAILY [facility] Last Admin: 04/09/24 08:58 Dose: Not Given Morphine Sulfate (Morphine 4 Mg/Ml Inj) 2 - 4 mg IVP Q1H PRN Ondansetron HCl (Ondansetron 2 Mg/Ml Inj) 4 mg IVP Q4H PRN PRN Reason: Nausea Last Admin: 04/09/24 07:59 Dose: 4 mg Oxycodone HCl (Oxycodone 5 Mg Tablet) 5 mg PO Q4H PRN PRN Reason: Pain Last Admin: 04/09/24 07:58 Dose: 5 mg Pantoprazole Sodium (Pantoprazole Sodium 40 Mg Inj) 40 mg IVP DAILY [facility] Last Admin: 04/09/24 09:43 Dose: 40 mg Polyethylene Glycol (Polyethylene Glycol 3350 17 Gm Pack) 17 gm PO DAILY PRN Prochlorperazine (Prochlorperazine 5 Mg/Ml Vial) 5 mg IV Q6H PRN PRN Reason: nausea if zofran not working Senna/Docusate Sodium (Sennosides/Docusate Tablet) 1 tab PO BID [facility] Last Admin: 04/09/24 08:58 Dose: Not Given Sodium Chloride (Sodium Chloride 0.9 % (Flush) 10 Ml Syringe) 5 ml IVF .FLUSH PRN Sodium Chloride (Sodium Chloride 0.9 % (Flush) 10 Ml Syringe) 5 ml IVF BID [facility] Last Admin: 04/09/24 09:00 Dose: 5 ml Sodium Chloride (0.9 % Sodium Chloride 500 Ml) 250 ml IV ONCE PRN Stop: 04/10/24 23:59 Last Admin: 04/09/24 10:31 Dose: 250 ml Transfer Discharge Sum: Hosp Hospital Course Hospital course: Lia Banerjee is a 48 year old female past medical history significant for hypertension, hyperlipidemia, supraventricular tachycardia controlled on a beta-kashif, alcohol use disorder, transaminitis is admitted to the medical floor from the ED for abdominal pain in setting of abdominal hemorrhage. Patient reports onset of abdominal pain today. Prior to this denies any significant abdominal pain like she experienced today. She underwent a liver biopsy yesterday at [facility] in [place]. She was told bleeding could be an adverse event. Pain has been in the right upper quadrant. She has not had any nausea or vomiting today. No bowel movement for 3-4 days. Denies UTI symptoms. Denies headache or dizziness. Denies chest pain or shortness of breath. No recent fevers. Other than the abdominal pain, patient is reports nausea and vomiting, almost on a daily basis for the past 6 months. This started after initiation of Wegovy. She started this with her PCP in the setting of chronic hypertension and hyperlipidemia and the goal to lose some weight. She also reports a history of daily drinking for years, typically 1-2 glasses of wine daily. She tells me her liver enzymes have been elevated for at least 4 years and she was encouraged to cut back on her drinking. She has now since stopped drinking and is no longer using a semaglutide. In the ED, total bilirubin 6.3, and direct bilirubin 1.9, lipase 561, CT abdomen pelvis shows Moderate amount of abdominopelvic ascites that appears slightly dense. This most likely reflects hemorrhage. Active hemorrhage not seen. ED provider discussed with Dr. Mcdowell, [facility], as well as Dr. Reyes, [facility]. Both recommending local hospitalization with observation, repeat labs. Overnight Eve's hemoglobin trended downward. Blood pressures remained soft but not hypotensive. Eve had no dizziness or lightheadedness or orthostatic symptoms, but did have persistent abdominal pain with guarding. Platelet count is also noted to be low. INR elevated at 1.55. Please see diagnoses above for full details. The patient is transferred to [place] for definitive care of presumed active bleeding secondary to recent liver biopsy. Time Spent with Patient Time attestation: Total time spent providing and/or coordinating transfer services: 90 minutes for discussions with specialists and accepting providers, reviewing [facility] and [facility] notes/diagnostics/labs. Exam Narrative: Exam Narrative: General: No acute distress. Awake, alert, oriented x3. No pallor. Jaundiced. Oropharynx: Clear. Mucous membranes moist. Cardiovascular: Regular rate and rhythm. No murmurs, gallops, or rubs. Respiratory: Clear to auscultation bilaterally. No wheezes or crackles. Abdomen: Anterior subxiphoid wound from liver biopsy with moderate ecchymosis surrounding it. Bowel sounds present. Soft, nondistended, tender in the epigastrium and mid abdomen with involuntary guarding. No rebound tenderness. No masses. Extremities: No lower extremity edema. Const: Vital Signs, click to edit/add: Vital Signs - 24 hr 04/08/24 16:11 04/08/24 17:26 04/08/24 17:32 Temperature 98.4 F Pulse Rate 87 85 Pulse Rate [Left P ulse Oximeter] Pulse Rate [Pulse Oximeter] 98 Respiratory Rate 18 Blood Pressure 101/66 104/63 Blood Pressure [Ri ght Arm] Blood Pressure [Ri ght Upper Arm] 91/54 L Pulse Oximetry 97 100 100 Oxygen Delivery Me thod Room Air 04/08/24 18:00 04/08/24 18:01 04/08/24 18:15 Temperature Pulse Rate 92 93 90 Pulse Rate [Left P ulse Oximeter] Pulse Rate [Pulse Oximeter] Respiratory Rate Blood Pressure 97/62 Blood Pressure [Ri ght Arm] Blood Pressure [Ri ght Upper Arm] Pulse Oximetry 100 100 100 Oxygen Delivery Me thod 04/08/24 18:30 04/08/24 18:31 04/08/24 19:54 Temperature 99.2 F Pulse Rate 92 101 H Pulse Rate [Left P ulse Oximeter] 98 Pulse Rate [Pulse Oximeter] Respiratory Rate 18 16 Blood Pressure 108/83 Blood Pressure [Ri ght Arm] 97/52 L Blood Pressure [Ri ght Upper Arm] Pulse Oximetry 100 100 100 Oxygen Delivery Me thod Room Air 04/08/24 21:28 04/08/24 22:02 04/08/24 22:13 Temperature 98.4 F Pulse Rate 97 Pulse Rate [Left P ulse Oximeter] 93 Pulse Rate [Pulse Oximeter] Respiratory Rate 16 16 Blood Pressure Blood Pressure [Ri ght Arm] 90/55 L Blood Pressure [Ri ght Upper Arm] Pulse Oximetry 100 99 Oxygen Delivery Me thod Room Air Room Air 04/08/24 22:19 04/08/24 22:30 04/09/24 02:28 Temperature 98.6 F Pulse Rate Pulse Rate [Left P ulse Oximeter] 93 93 Pulse Rate [Pulse Oximeter] Respiratory Rate 16 16 16 Blood Pressure Blood Pressure [Ri ght Arm] 99/56 L Blood Pressure [Ri ght Upper Arm] Pulse Oximetry 99 [facility] 04/09/24 07:41 04/09/24 07:41 04/09/24 08:56 Temperature 98.4 F 98.2 F Pulse Rate Pulse Rate [Left P ulse Oximeter] 93 90 95 Pulse Rate [Pulse Oximeter] Respiratory Rate 14 16 16 Blood Pressure Blood Pressure [Ri ght Arm] 97/67 97/62 Blood Pressure [Ri ght Upper Arm] Pulse Oximetry 100 [facility] 04/09/24 09:02 04/09/24 09:20 04/09/24 09:35 Temperature 99.3 F Pulse Rate 80 Pulse Rate [Left P ulse Oximeter] 90 90 Pulse Rate [Pulse Oximeter] Respiratory Rate 16 16 Blood Pressure Blood Pressure [Ri ght Arm] 100/61 105/67 Blood Pressure [Ri ght Upper Arm] Pulse Oximetry 100 [facility] 04/09/24 09:46 04/09/24 10:20 04/09/24 10:37 Temperature 98.6 F 98.4 F Pulse Rate 92 89 Pulse Rate [Left P ulse Oximeter] 89 Pulse Rate [Pulse Oximeter] Respiratory Rate 16 16 16 Blood Pressure 92/56 L 95/61 Blood Pressure [Ri ght Arm] 104/65 Blood Pressure [Ri ght Upper Arm] Pulse Oximetry 100 97 97 [facility] Room [facility] Room Air Transfer Discharge Sum: Data Data Completed and Pending Completed studies during hospitalization: Ordering Physician: Daniel Wilson M.D. Date of Service: 04/08/24 Procedure(s): CT abdomen pelvis w con Accession Number(s): [id number] cc: Daniel Wilson M.D.; Kit Caremn PA-C~ For Patients: As a result of the Century Cures Act, medical imaging exams and procedure reports are released immediately into your electronic medical record. You may view this report before your referring provider. If you have questions, please contact your health care provider. INDICATION: Right upper quadrant pain status post liver biopsy yesterday TECHNIQUE: CT abdomen and pelvis with 64 mL Isovue 370 contrast. COMPARISON: None. FINDINGS: Lower chest: Bilateral breast implants. Liver: Nodular contour to liver. This can be seen with cirrhosis. Gallbladder and bile ducts: No stones or inflammation. No biliary dilatation. Pancreas: Unremarkable. No mass or inflammation. Spleen: Normal in size. No masses. Adrenal glands: Normal in size. No nodules. Kidneys: Normal in size. No suspicious masses, Or hydronephrosis. Punctate nonobstructing right renal calculus. GI tract: Unremarkable. Normal in caliber. No sign of mass or inflammation. Normal appendix. Vasculature: Abdominal aorta is normal in caliber. Recanalized umbilical vein. Small abdominal varices gastroesophageal varices Lymph nodes: No lymphadenopathy. Peritoneum/Abdominal Wall: There is a moderate amount of abdominopelvic ascites that appears densities likely reflects hemorrhage. Pelvis: Diffuse wall thickening of the urinary bladder focus of air in the urinary bladder. Correlate with recent instrumentation. Bladder is not completely distended. Bones: Unremarkable for age. IMPRESSION: 1. Moderate amount of abdominopelvic ascites that appears slightly dense. This most likely reflects hemorrhage. Active hemorrhage not seen. 2. Cirrhotic morphology liver. Recanalized umbilical vein upper abdominal varices and gastroesophageal, periumbilical varices. Findings of portal hypertension. 3. Wall Thickening of the urinary bladder, incompletely distended. Focus of air in the urinary bladder correlate with recent instrumentation. Please note that all CT scans at this facility use dose modulation, iterative reconstruction, and/or weight-based dosing when appropriate to reduce radiation dose to as low as reasonably achievable. Dictated by Anupama Polo MD @ 04/08/2024 6:06:38 PM (Electronically Signed) Ordering Physician: Tawana Schmidt M.D. Date of Service: 04/09/24 Procedure(s): CT angio abd pel AAA Accession Number(s): [id number] cc: Kit Carmen PA-C; Tawana Schmidt M.D.~ For Patients: As a result of the Cures Act, medical imaging exams and procedure reports are released immediately into your electronic medical record. You may view this report before your referring provider. If you have questions, please contact your health care provider. INDICATION: Bleeding from liver biopsy, question active bleeding or pseudoaneurysm. COMPARISON: 04/08/2024, 02/16/2023 TECHNIQUE: CT angiogram of the abdomen and pelvis with intravenous contrast. Multiplanar axial, coronal, and sagittal reformats were reconstructed. No MIP images are included. Contrast: 95 mL Isovue 370. FINDINGS: Aorta and branches: Well timed contrast bolus. Normal course and caliber of the abdominal aorta and its major branches. Conventional hepatic arterial supply. Relatively early branching of the common hepatic artery just beyond the GDA takeoff. Normal mesenteric and renal arteries. Normal iliac and common femoral arteries. Liver: Heterogeneous arterial enhancement in the liver. Along the periphery of the liver at the level of the falciform ligament there is a focal 0.3 centimeter arterial outpouching that may be a small pseudoaneurysm (series 5, image 141). No active arterial extravasation is seen on this examination. There is a small amount of contrast in the portal venous system and the umbilical vein is recannulated and appear similar to the prior exam. Lung bases: Mild basilar atelectasis. Gallbladder and bile ducts: Normal gallbladder. No bile duct dilation. Pancreas: Normal. Spleen: Normal. Adrenal glands: Normal. Kidneys: Normal parenchyma. No cyst or solid mass. No calculi. No urinary tract dilation. Urinary bladder: Hyperdense excreted contrast from yesterday`s CT. Pelvis: No cyst or mass. Bowel: Nonspecific thick-walled jejunum measuring up to 1 centimeter. Appearance is worse than yesterday. There is mesenteric hyperemia. The segment of involved jejunum measures about 10 centimeters. Normal appendix. Moderate stool burden. Lymph nodes: No adenopathy. Peritoneum: No ascites. Abdominal wall: Small ascites has increased. Fluid density consistent with hemoperitoneum. Bilateral breast implants. Bilateral nipple piercings. Navel piercing. There are recannulated prominent collateral veins in the small fat containing umbilical hernia. Bones: No fractures. No focal worrisome bone lesions. IMPRESSION: 1. Minimally increased hemoperitoneum. 2. There is a 3 millimeter arterially enhancing outpouching along the anterior periphery of the liver at the level of the falciform ligament. This could be a tiny pseudoaneurysm. There is not any active arterial extravasation seen from this pseudoaneurysm or elsewhere from the liver. 3. There is a 10 centimeter segment of significantly thickened proximal jejunum. The mesenteric arteries and veins to this segment of small bowel are widely patent and there is not any pneumatosis or perforation seen. Please note that all CT scans at this facility use dose modulation, iterative reconstruction, and/or weight-based dosing when appropriate to reduce radiation dose to as low as reasonably achievable. Dictated by Donya Robison MD @ 04/09/2024 9:38:55 AM (Electronically Signed) Discharge Plan Discharge Disposition: [facility] Discharge Location: [facility] Date of Admission: 04/09/24 08:26 Attending Physician on Admission: Parisa Robbins Attending Provider on Discharge: Tawana Schmidt Consulting Providers: Lynn Reyes; Billy Mcdaniel; Dara May Primary Care Provider: Kit Carmen Condition: Stable Discharge Medications: No Action metoprolol succinate 25 mg tablet extended release 24 hr 25 mg PO DAILY lisinopril-hydrochlorothiazide 20-12.5 mg tablet 1 tab PO QDAY Patient Comments: Take 1 Tablet by mouth once daily. atorvastatin 20 mg tablet 20 mg PO HS Patient Comments: TAKE ONE TABLET BY MOUTH AT BEDTIME ondansetron 4 mg tablet,disintegrating 4 mg PO Q6-8H PRN (Reason: nausea and vomiting) Qty: 30 0RF levothyroxine 25 mcg tablet 25 mcg PO DAILY progesterone micronized 200 mg capsule 400 mg PO HS cetirizine 10 mg tablet 10 mg PO DAILY Rx Instructions: Take 1 Tablet (10 mg) by mouth once daily. Follow Up Appointments: Kit Carmen, [facility]ann[facility] [Primary Care Provider] - Odessa Oneill MD [Staff Physician] - Oxygen: No Urinary Catheter: No Drips/Lines: Packed red blood cell transfusion Services not available here: Interventional radiology
== END 2024-04-09 10:46 | disposition short-term general hospital (02) | DRG 663 ==
LOC: ED 18:50 → MEDSURG 19:23
PROVIDERS: Family Medicine; Admitting Provider Physician Assistant; Emergency Provider Emergency Medicine Emergency Medical Services; PCP Physician Assistant Medical; Visit Provider Family Medicine
DX: D62 Acute posthemorrhagic anemia (principal); K66.1 Hemoperitoneum; D64.9 Anemia, unspecified; K68.3 Retroperitoneal hematoma; I47.10 Supraventricular tachycardia, unspecified; R18.8 Other ascites; R10.9 Unspecified abdominal pain; K74.60 Unspecified cirrhosis of liver; R74.01 Elevation of levels of liver transaminase levels; E66.3 Overweight; I10 Essential (primary) hypertension; E78.5 Hyperlipidemia, unspecified; F10.90 Alcohol use, unspecified, uncomplicated; R74.8 Abnormal levels of other serum enzymes; Z68.21 Body mass index [BMI] 21.0-21.9, adult; R11.2 Nausea with vomiting, unspecified
CPT/HCPCS: 36415; 36430; 74174; 74177; 80048; 80053; 80076; 81001; 83690; 85025; 85027; 85610; 86850; 86900; 86901; 86922; 87086; 99284; 99285; A9270; J2060; J2405; J2470; J2765; J7030; P9016; Q9967

== ENCOUNTER 2024-04-09 10:34 | Outpatient (CLI) | payer BC, SELFPAY | END 2024-04-09 10:35 | disposition home or self-care (01) | LOC: AMB 04-10 06:49 | PROVIDERS: PCP Physician Assistant Medical; Visit Provider Emergency Medicine | DX: D62 Acute posthemorrhagic anemia (principal); K66.1 Hemoperitoneum; K74.60 Unspecified cirrhosis of liver | CPT/HCPCS: A0425; A0434 ==

== ENCOUNTER 2024-04-23 10:48 | Outpatient (CLI) | payer BC, SELFPAY | END 2024-04-23 10:49 | disposition home or self-care (01) | LOC: NFLDREF 04-24 02:24 | PROVIDERS: PCP Physician Assistant Medical; Referring Provider Physician Assistant Medical; Visit Provider Physician Assistant | DX: N30.00 Acute cystitis without hematuria (principal); B96.20 Unspecified Escherichia coli [E. coli] as the cause of diseases classified elsewhere | CPT/HCPCS: 87086 ==

== ENCOUNTER 2024-06-23 15:15 | Outpatient (CLI) | payer BC, SELFPAY | END 2024-06-23 15:16 | disposition home or self-care (01) | LOC: NFLDREF 06-29 18:44 | PROVIDERS: PCP Physician Assistant Medical; Referring Provider Physician Assistant Medical; Visit Provider Physician Assistant | DX: N39.0 Urinary tract infection, site not specified (principal); B96.20 Unspecified Escherichia coli [E. coli] as the cause of diseases classified elsewhere | CPT/HCPCS: 87086 ==

== ENCOUNTER 2024-07-10 13:27 | Outpatient (CLI) | payer BC, SELFPAY | END 2024-07-10 13:28 | disposition home or self-care (01) | LOC: NFLDREF 07-18 22:39 | PROVIDERS: PCP Physician Assistant Medical; Referring Provider Physician Assistant Medical; Visit Provider Nurse Practitioner Family | DX: N30.00 Acute cystitis without hematuria (principal); B96.20 Unspecified Escherichia coli [E. coli] as the cause of diseases classified elsewhere | CPT/HCPCS: 87086 ==

== ENCOUNTER 2024-10-22 12:02 | Outpatient (CLI) | payer BC, SELFPAY | END 2024-10-22 12:03 | disposition home or self-care (01) | LOC: NFLDREF 10-24 08:16 | PROVIDERS: PCP Physician Assistant Medical; Referring Provider Physician Assistant Medical; Visit Provider Nurse Practitioner Family | DX: N39.0 Urinary tract infection, site not specified (principal); B96.20 Unspecified Escherichia coli [E. coli] as the cause of diseases classified elsewhere | CPT/HCPCS: 87086 ==

== ENCOUNTER 2024-11-05 12:13 | Outpatient (CLI) | payer BC, SELFPAY | END 2024-11-05 12:14 | disposition home or self-care (01) | LOC: NFLDREF 17:26 | PROVIDERS: PCP Physician Assistant Medical; Referring Provider Physician Assistant Medical; Visit Provider Nurse Practitioner Family | DX: R35.0 Frequency of micturition (principal); N39.0 Urinary tract infection, site not specified | CPT/HCPCS: 87086 ==

== ENCOUNTER 2024-12-26 11:39 | Emergency (ER) | payer BC, SELFPAY ==
--- OUTSIDE RECORDS SUMMARY | 2024-11-14 07:45 | XMS_ITS | Encounter Summary ---
Author Organization [place] Address [address] [place] [address] Care Team Providers Care Ramp Service Man Name Role Phone Kit Carmen PA-C Primary Care Provider + [phone] Dominic Khan MD Unavailable + [phone] Dominic Khan MD Unavailable + [phone] Encounter Details Date Type Department Care Team (Late st Contact Info) Description 11/14/2024 8:45 AM CDT Lab [facility] [address] [place] [address] Alcoholic cirrhosis of liver without ascites (H) Social History Tobacco Use Types Packs/Day Years Used Date Smoking Tobacco: Never Smokeless Tobacco: Never PHQ-2 Answer Date Recorded PHQ-2 Score 0 11/09/2024 Adolescent Education Answer Date Record ed Getting School Help Needed Not on file 11/22 Comments No Sex and Gender Information Value Date Recorded Sex Assigned at Not on file Legal Sex Female 3:27 AM RED [place] Gender Identity Not on file Sexual Orientation Not on file documented as of this encounter Plan of Treatment Upcoming Encounters Date Type Department Care Team (Late st Contact Info) Description 04/23/2025 8:00 AM RED CAP Lab M [facility] [address] [place] [phone] Dominic Khan MD [address] [place] [address] [phone] 04/23/2025 9:00 AM RED CAP Office Visit [facility] [address] [phone] Dominic Khan MD [address] [place] [phone] documented as of this encounter Procedures Procedure Name Priority Date/Time Associated Diagnosis Comments MITOCHONDRIAL M2 ANTIBODY IGG Routine 11/14/2024 8:47 AM CDT Alcoholic cirrhosis of liver without ascites (H) HEPATITIS B SURFACE ANTIBODY Routine 11/14/2024 8:47 AM CDT Alcoholic cirrhosis of liver without ascites (H) SMOOTH MUSCLE CLAUDE IGG TITER Routine 11/14/2024 8:47 AM CDT Alcoholic cirrhosis of liver without ascites (H) IGG Routine 11/14/2024 8:47 AM CDT Alcoholic cirrhosis of liver without ascites (H) PHOSPHATIDYLETHANOL (PETH), WHOLE BLOOD Routine 11/14/2024 8:47 AM CDT Alcoholic cirrhosis of liver without ascites (H) ANTI NUCLEAR CLAUDE IGG BY IFA WITH REFLEX Routine 11/14/2024 8:47 AM CDT Alcoholic cirrhosis of liver without ascites (H) INR Routine 11/14/2024 8:47 AM CDT Alcoholic cirrhosis of liver without ascites (H) IGM Routine 11/14/2024 8:47 AM CDT Alcoholic cirrhosis of liver without ascites (H) HEPATITIS C ANTIBODY Routine 11/14/2024 8:47 AM CDT Alcoholic cirrhosis of liver without ascites (H) HEPATITIS B SURFACE ANTIGEN Routine 11/14/2024 8:47 AM CDT Alcoholic cirrhosis of liver without ascites (H) HEPATITIS B CORE ANTIBODY Routine 2024 8:47 AM CDT Alcoholic cirrhosis of liver without ascites (H) HEPATIC FUNCTION PANEL Routine 8:47 AM CDT Alcoholic cirrhosis of liver without ascites (H) F ACTIN EIA WITH REFLEX Routine 11/15/19 25 8:47 AM CDT Alcoholic cirrhosis of liver without ascites (H) AFP TUMOR MARKER Routine 11/14/2024 8:47 AM CDT Alcoholic cirrhosis of liver without ascites (H) BASIC METABOLIC PANEL Routine 11/14/2024 8:47 AM CDT Alcoholic cirrhosis of liver without ascites (H) CBC WITH PLATELETS Routine 11/14/2024 8: 47 AM CDT Alcoholic cirrhosis of liver without ascites (H) documented in this encounter Results * Smooth Muscle Claude IgG Titer (11/14/2024 8:47 AM CDT) Smooth Muscle Claude IgG Titer <1:20 <1:20 11/17/2024 10:34 PM CDT [employer] Comment: Specimen is icteric. Results may be adversely affected. INTERPRETIVE INFORMATION: Smooth Muscle Ab, IgG Titer Less than 1:20 ........ Negative - No antibody detected. 1:20 - 1:80 .......... Weak Positive - Suggest repeat in two to three weeks with fresh specimen. 1:160 or greater ...... Positive - Suggestive of autoimmune hepatitis or chronic active hepatitis. Performed By: [address] [place] [address] Speech And Language Clinician: Doroteo Shipman MD, PhD CLIA Number: [id number] Blood BLOOD SPECIMEN / Unknown Venipuncture / Unknown 11/14/2024 8:47 AM CDT 11/14/2024 8:47 AM CDT us Dominic Khan MD LAB - BLOOD ORDERABL ES Final Result [facility] [address] [place] [phone], [facility] [phone] * Phosphatidylethanol (PEth), Whole Blood (11/14/2024 8:47 AM CDT) PEth 16:0/18:1 (POPEth) <10 ng/mL 11/16/2024 3:16 PM CDT [facility] Comment: PEth 16:0/18:1 (POPEth) Less than 10 ng/mL............Not detected Less than 20 ng/mL............Abstinence or light alcohol consumption 20 - 200 ng/mL................Moderate alcohol consumption Greater than 200 ng/mL........Heavy alcohol consumption or chronic alcohol use (Reference: Vinicius Giang and Kevon Bolanos 2018 J. Forensic Sci) PEth 16:0/18:2 (PLPEth) <10 ng/mL 11/16/2024 3:16 PM CDT [facility] Comment:Reference ranges are not well established. EER Phosphatidylethanol (PETH) See Note 11/16/2024 3:16 PM CDT [facility] Comment: Authorized individuals can access the [facility] Report with an [facility] account using the following link. Your local lab can assist you in obtaining the patient report if you don't have a Connect account. [email or web address] PEth Interpretation See Comment 11/16/2024 3:16 PM CDT [facility] Comment: Phosphatidylethanol (PEth) is a group of phospholipids formed in the presence of ethanol, phospholipase D and phosphatidylcholine. PEth is known to be a direct alcohol biomarker. The predominant PEth homologues are PEth 16:0/18:1 (POPEth) and PEth 16:0/18:2 (PLPEth), which account for 37-46% and 26-28% of the total PEth homologues, respectively. PEth is incorporated into the phospholipid membrane of red blood cells and has a general half-life of 4-10 days and a window of detection of 2-4 weeks. However, the window of detection is longer in individuals who chronically or excessively consume alcohol. The limit of quantification is 10 ng/mL. Serial monitoring of PEth may be helpful in monitoring alcohol abstinence over time. PEth results should be interpreted in the context of the patient's clinical and behavioral history. Patients with advanced liver disease may have falsely elevated PEth concentrations (Zari TALLEY et al 2018, Alcoholism Clinical & Experimental Research). This test was developed and its performance characteristics determined by [employer]. It has not been cleared or approved by the U.S. Food and Drug Administration. This test was performed in a CLIA-certified laboratory and is intended for clinical purposes. Performed By: [employer] [address] [place] [address] Speech And Language Clinician: Doroteo Shipman MD, PhD CLIA Number: [id number] Blood BLOOD SPECIMEN / Unknown Venipuncture / Unknown 11/14/2024 8:47 AM CDT 11/14/2024 8:47 AM CDT Dominic Khan MD LAB - BLOOD ORDERABL ES Final Result COUNT INCLUDES THE [facility] [employer] [employer] [address] [place] [phone], [facility] [phone] * Hepatitis C antibody (11/14/2024 8:47 AM CDT) Pathologist [facility] Hepatitis C Antibody Nonreactive Nonreactive 11/14/2024 4:45 PM CDT LABORATORY Comment: A nonreactive screening test result does not exclude the possibility of exposure to or infection with HCV. Nonreactive screening test results in individuals with prior exposure to HCV may be due to antibody levels below the limit of detection of this assay or lack of reactivity to the HCV antigens used in this assay. Patients with recent HCV infections (<3 months from time of exposure) may have false-negative HCV antibody results due to the time needed for seroconversion (average of 8 to 9 weeks). Assay performance characteristics have not been established in populations of immunocompromised or immunosuppressed patients. Blood BLOOD SPECIMEN / Unknown Venipuncture / Unknown 11/14/2024 8:47 AM CDT 11/14/2024 8:47 AM CDT Dominic Khan MD LAB - BLOOD ORDERABL ES Final Result LABORATORY [facility] [address] [facility], [address] [phone] * Hepatitis B Surface Antibody (11/14/2024 8:47 AM CDT) Hepatitis B Surface Antibody Nonreactive 11/14/2024 5:21 PM CDT [facility] Comment:Nonreactive results, defined as anti-HBs levels of less than 8.5 mIU/mL, indicate a lack of recovery from acute or chronic hepatitis B or inadequate immune response to HBV vaccination. Hepatitis B Surface Antibody Instrument Value <3.50 <8.5 m[IU]/mL 11/14/2024 5:21 PM CDT [facility] Comment: Assay performance characteristics have not been established for the use of the Elecsys Anti-HBs assay as an aid in determining susceptibility to HBV infection prior to or following vaccination in infants, children, or adolescents. Blood BLOOD SPECIMEN / Unknown Venipuncture / Unknown 11/14/2024 8:47 AM CDT 11/14/2024 8:47 AM CDT Dominic Khan MD LAB - BLOOD ORDERABL ES Final Result LABORATORY [facility] [address] [facility], Room [address] [phone] * Hepatitis B core antibody (11/14/2024 8:47 AM CDT) Hepatitis B Core Antibody Total Nonreactive Nonreactive 11/14/2024 4:45 PM CDT [facility] Comment: Nonreactive hepatitis B core antibody test results indicate the absence of exposure to hepatitis B virus and no evidence of recent, past/resolved, or chronic hepatitis B. Assay performance characteristics have not been established in patients under 21, women, or in populations of immunocompromised or immunosuppressed patients. Blood BLOOD SPECIMEN / Unknown Venipuncture / Unknown 11/14/2024 8:47 AM CDT 11/14/2024 8:47 AM CDT Dominic Khan MD LAB - BLOOD ORDERABL ES Final Result LABORATORY [facility] [address] [facility], [address] * Hepatitis B surface antigen (11/14/2024 8:47 AM CDT) Pathologist [facility] Hepatitis B Surface Antigen Nonreactive Nonreactive 11/14/2024 4:45 PM CDT LABORATORY Comment: Assay performance characteristics have not been established for testing of newborns. Blood BLOOD SPECIMEN / Unknown Venipuncture / Unknown 11/14/2024 8:47 AM CDT 11/14/2024 8:47 AM CDT Dominic Khan MD LAB - BLOOD ORDERABL ES Final Result Performing Organization Address City/[facility]/ZIP Co de Phone Number LABORATORY [facility] Lab [address] [facility], [address] * IgM (11/14/2024 8:47 AM CDT) Pathologist [facility] Immunoglobulin M 185 35 - 242 mg/dL 11/15/2024 7:52 AM CDT SPECIALTY CORE/PROT/END O Blood BLOOD SPECIMEN / Unknown Venipuncture / Unknown 11/14/2024 8:47 AM CDT 11/14/2024 8:47 AM CDT Dominic Khan MD LAB - BLOOD ORDERABL ES Final Result [facility] CORE/PROT/ENDO [facility] Specialty Core/Prot/Endo [address] [facility], [address] * IgG (11/14/2024 8:47 AM CDT) Immunoglobulin G 1,512 610 - 1,616 mg/dL 11/15/2024 7:52 AM CDT [facility] SPECIALTY CORE/PROT/END O Blood BLOOD SPECIMEN / Unknown Venipuncture / Unknown 11/14/2024 8:47 AM CDT 11/14/2024 8:47 AM CDT Dominic Khan MD LAB - BLOOD ORDERABL ES Final Result [facility] SPECIALTY CORE/PROT/ENDO [facility] Specialty Core/Prot/Endo [address] [facility], [address] * (ABNORMAL) F Actin EIA with reflex (11/14/2024 8:47 AM CDT) F-Actin (Smooth Muscle) Ab, IgG by KOBY 20(H) 0 - 19 Units 11/16/2024 12:36 AM CDT [employer] Comment: REFERENCE INTERVAL: F-Actin (Smooth Muscle) Antibody, IgG by KOBY 19 Units or less ....... Negative 20 - 30 Units .......... Weak Positive-Suggest repeat testing in two to three weeks with fresh specimen. 31 Units or greater..... Positive-Suggestive of autoimmune hepatitis type 1 or chronic active hepatitis. F-actin IgG antibodies have been shown to have increased sensitivity for autoimmune hepatitis (AIH) but lower specificity than smooth muscle antibodies (SMA). F-actin IgG antibodies can also be seen in SMA-negative disease controls (non-AIH), especially in patients with primary biliary cirrhosis and chronic hepatitis C infections. Some patients with AIH may be SMA-positive but negative for F-actin IgG. Consider testing for SMA by IFA if suspicion for AIH is strong. Performed By: [facility] [address] [place] [address] Speech And Language Clinician: Doroteo Shipman MD, PhD CLIA Number: [id number] Blood BLOOD SPECIMEN / Unknown Venipuncture / Unknown 11/14/2024 8:47 AM CDT 11/14/2024 8:47 AM CDT Dominic Khan MD LAB - BLOOD ORDERABL ES Final Result [facility] [address] [place] [phone], [facility] [phone] * Mitochondrial M2 Antibody IgG (11/14/2024 8:47 AM CDT) Mitochondrial M2 Antibody IgG 1.7 <4.0 U/mL 11/17/2024 12:29 PM CDT [facility] CORE/PROT/END O Comment:Negative Blood BLOOD SPECIMEN / Unknown Venipuncture / Unknown 11/14/2024 8:47 AM CDT 11/14/2024 8:47 AM CDT Dominic Khan MD LAB - BLOOD ORDERABL ES Final Result Performing Organization Address City/[facility]/ZIP Co de Phone Number [facility] SPECIALTY CORE/PROT/ENDO Specialty Core/Prot/Endo [address] [facility] [address] [facility], Room [address] * Anti Nuclear Claude IgG by IFA with Reflex (11/14/2024 8:47 AM CDT) NABIL interpretation Negative Negative 2024 10:03 AM CDT SPECIALTY CORE/PROT/EN DO Comment: Negative: <1:40 Borderline Positive: 1:40 - 1:80 Positive: >1:80 Blood BLOOD SPECIMEN / Unknown Venipuncture / Unknown 11/14/2024 8:47 AM CDT 11/14/2024 8:47 AM CDT us Dominic Khan MD LAB - BLOOD ORDERABL ES Final Result [facility] SPECIALTY CORE/PROT/ENDO Specialty Core/Prot/Endo [address] [facility] [address] [facility] Building, [address] * (ABNORMAL) AFP tumor marker (11/14/2024 8:47 AM CDT) AFP tumor marker 15.7(H) <=8.3 ng/mL 11/14/2024 4:18 PM CDT [facility] Blood BLOOD SPECIMEN / Unknown Venipuncture / Unknown 11/14/2024 8:47 AM CDT 11/14/2024 8:47 AM CDT Narrative [facility] - 11/14/2024 4:18 PM CDT This result is obtained using the [employer] Elecsys AFP method on the sally e801 immunoassay analyzer. Results obtained with different assay methods or kits cannot be used interchangeably. Reference ranges apply to non- females only. Dominic Khan MD LAB - BLOOD ORDERABL ES Final Result [facility] LABORATORY [facility] [address] [facility], [address] [place] [address] * (ABNORMAL) INR (11/14/2024 8:47 AM CDT) INR 1.65(H) 0.85 - 1.15 11/14/2024 1:01 PM CDT [facility] PT 19.8(H) 11.8 - 14.8 Seconds 11/14/2024 1:01 PM CDT [facility] Blood BLOOD SPECIMEN / Unknown Venipuncture / Unknown 11/14/2024 8:47 AM CDT 11/14/2024 8:47 AM CDT Dominic Khan MD LAB - BLOOD ORDERABL ES Final Result [facility] LABORATORY [facility] [address] Lab (no room number, 1st floor of clinic) [place] [address] * (ABNORMAL) Hepatic function panel (11/14/2024 8:47 AM CDT) Protein Total 7.1 6.4 - 8.3 g/dL 11/14/2024 4:18 PM CDT [facility] Albumin 3.5 3.5 - 5.2 g/dL 11/14/2024 4:18 PM CDT [facility] Bilirubin Total 5.8(H) <=1.2 mg/dL 11/14/2024 4:18 PM CDT [facility] Alkaline Phosphatase 321(H) 40 - 150 U/L 11/14/2024 4:18 PM CDT [facility] AST 126(H) 0 - 45 U/L 11/14/2024 4:18 PM CDT [facility] ALT 70(H) 0 - 50 U/L 11/14/2024 4:18 PM CDT [facility] Bilirubin Direct 2.82(H) 0.00 - 0.45 mg/dL 11/14/2024 4:18 PM CDT [facility] Comment:As of 24, refer ence ranges and trending lines may vary depending on the testing location. Blood BLOOD SPECIMEN / Unknown Venipuncture / Unknown 11/14/2024 8:47 AM CDT 11/14/2024 8:47 AM CDT us Dominic Khan MD LAB - BLOOD ORDERABL ES Final Result [facility] LABORATORY [facility] [address] [facility], Room [address] [place] [phone] * (ABNORMAL) Basic metabolic panel (11/14/2024 8:47 AM CDT) Sodium 137 135 - 145 mmol/L 11/14/2024 4:18 PM CDT [facility] Potassium 4.3 3.4 - 5.3 mmol/L 11/14/2024 4:18 PM CDT [facility] Chloride 102 98 - 107 mmol/L 11/14/2024 4:18 PM CDT [facility] Carbon Dioxide (CO2) 23 22 - 29 mmol/L 11/14/2024 4:18 PM CDT [facility] Anion Gap 12 7 - 15 mmol/L 11/14/2024 4:18 PM CDT [facility] Urea Nitrogen 27.4(H) 6.0 - 20.0 mg/dL 11/14/2024 4:18 PM CDT [facility] Creatinine 1.32(H) 0.51 - 0.95 mg/dL 11/14/2024 4:18 PM CDT [facility] GFR Estimate 50(L) >60 mL/min/1.7 3m2 11/14/2024 4:18 PM CDT [facility] Comment:eGFR calculated 2020 CKD-EPI equation. Calcium 9.5 8.8 - 10.4 mg/dL 11/14/2024 4:18 PM CDT [facility] Glucose 97 70 - 99 mg/dL 11/14/2024 4:18 PM CDT [facility] Blood BLOOD SPECIMEN / Unknown Venipuncture / Unknown 11/14/2024 8:47 AM CDT 11/14/2024 8:47 AM CDT us Domniic Khan MD LAB - BLOOD ORDERABL ES Final Result [facility] LABORATORY [facility] [address] [facility], [address] [phone] * (ABNORMAL) CBC with platelets (11/14/2024 8:47 AM CDT) WBC Count 7.86 4.00 - 11.00 10e3/uL 11/14/2024 3:03 PM CDT [facility] RBC Count 3.25(L) 3.80 - 5.20 10e6/uL 11/14/2024 3:03 PM CDT [facility] Hemoglobin 11.0(L) 11.7 - 15.7 g/dL 11/14/2024 3:03 PM CDT [facility] Hematocrit 32.8(L) 35.0 - 47.0 % 11/14/2024 3:03 PM CDT [facility] MCV 100.9(H) 78.0 - 100.0 fL 11/14/2024 3:03 PM CDT [facility] MCH 33.8(H) 26.5 - 33.0 pg 11/14/2024 3:03 PM CDT [facility] MCHC 33.5 31.5 - 36.5 g/dL 11/14/2024 3:03 PM CDT [facility] RDW 14.9 10.0 - 15.0 % 11/14/2024 3:03 PM CDT [facility] Platelet Count 64(L) 150 - 450 10e3/uL 11/14/2024 3:03 PM CDT LABORATORY Blood BLOOD SPECIMEN / Unknown Venipuncture / Unknown 11/14/2024 8:47 AM CDT 11/14/2024 8:47 AM CDT us Dominic Khan MD LAB - BLOOD ORDERABL ES Final Result LABORATORY [facility] Lab [address] Lab (1st floor, no room number) [place] [address] documented in this encounter Visit Diagnoses Diagnosis Alcoholic cirrhosis of liver without ascites (H) Alcoholic cirrhosis of liver documented in this encounter Care Teams Ramp Service Man Relationship Specialty Start Date End Date Kit Carmen, PAShannanC [facility] [id number] [place] [address] PCP - General Physician Gift Shop Clerk 08/24/17 Dominic Khan MD [address] [place] [phone] Gastroenterology 08/16/24 Dominic Khan MD [address] [place] [phone] Assigned Gastroenterology Provider 11/14/24 documented as of this encounter
--- OUTSIDE RECORDS SUMMARY | 2024-11-17 06:49 | XMS_ITS | Encounter Summary ---
Author Organization [place] Address [address] [place] [id number] Care Team Providers Care Perinatal Coordinator Name Role Phone Kit Carmen PA-C Primary Care Provider [phone] Dominic Khan MD Unavailable +- [phone] Dominic Khan MD Unavailable +- [phone] Reason for Referral * Diagnostic Imaging MRI (Routine) - Closed Specialty Diagnoses / Procedures Referred By Contac t Referred To Contact Radiology. Diagnoses Alcoholic cirrhosis of liver without ascites (H) Procedures MR Liver wo & w Contrast Dominic Khan MD [address] [place] [address] Phone: tel: fax: [facility] [place] [address] Phone: tel: fax: Referral ID Status Reason Start Date Expiration Date Visits Re quested Visits Authorized [id number] Closed 11/09/2024 11/09/2025 1 1 Reason for Visit * Diagnostic Imaging MRI (Routine) - Closed Specialty Diagnoses / Procedures Referred By Contac t Referred To Contact Radiology. Diagnoses Alcoholic cirrhosis of liver without ascites (H) Procedures MR Liver wo & w Contrast Dominic Khan MD [address] [place] [address] Phone: tel: fax: [facility] [address] [place] [address] Phone: tel: fax: Referral ID Status Reason Start Date Expiration Date Visits Re quested Visits Authorized [id number] Closed 11/09/2024 11/09/2025 1 1 Encounter Details Date Type Department Care Team (Latest Contact Info) Description 11/17/2024 7:49 AM CDT - 11/17/2024 11:59 PM CDT Hospital Encounter [facility] [address] [place] [address] Dominic Khan MD [address] [place] [address] [id number] Alcoholic cirrhosis of liver without ascites (H) Discharge Disposition: Home or Self Care Social History Tobacco Use Types Packs/Day Years Used Date Smoking Tobacco: Never Smokeless Tobacco: Never PHQ-2 Answer Date Recorded PHQ-2 Score 0 11/09/2024 Adolescent Education Answer Date Record ed Getting School Help Needed Not on file 11/22 Comments No Sex and Gender Information Value Date Recorded Sex Assigned at Not on file 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 11/04/2024 atorvastatin (LIPITOR) 20 MG tablet Take 1 Tablet (20 mg) by mouth at bedtime.* carvedilol (COREG) 3.125 MG tablet Take 3.125 mg by mouth 2 times daily (with meals). lactulose 20 GM/30ML solutionIndications: Alcoholic cirrhosis of liver without ascites (H),Hepatic encephalopathy (H) Take 30 mLs (20 g) by mouth 2 times daily. 5400 mL 1 11/13/2024 levothyroxine (SYNTHROID/LEVOTHROI D) 25 MCG tablet Take 25 mcg by mouth. ondansetron (ZOFRAN ODT) 4 MG ODT tab Take 1 tablet (4 mg) by mouth every 8 hours as needed for nausea or vomiting. 10 tablet 02/20/2024 progesterone (PROMETRIUM) 100 MG capsule thyroid (ARMOUR) 60 MG tablet thyroid (ARMOUR) 90 MG tablet Take 90 mg by mouth. WEGOVY 1.7 MG/0.75ML pen Inject 1.7 mg subcutaneous ly. 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 Office Visit [facility] [address] [phone] Dominic Khan MD [address] [place] [address] [phone] documented as of this encounter Procedures Procedure Name Priority Date/Time Associated Diagnosis Comments MR LIVER W/O & W CONTRAST Routine 11/17/2024 8:28 AM CDT Alcoholic cirrhosis of liver without ascites (H) documented in this encounter Results * MR Liver wo & w Contrast (11/17/2024 8:28 AM CDT) Anatomical Region Laterality Modality Abdomen/Pelvis, SUBRAD MR BODY, UMP MR BODY, RAD MR Magnetic Resonance 11/17/2024 8:28 AM CDT Impressions 11/19/2024 3:28 PM CDT IMPRESSION: 1. No MR evidence of suspicious hepatic lesions. 2. Morphologic changes of cirrhosis without ascites. 3. Mild splenomegaly. 4. No bladder wall thickening and significant distention is unchanged. Narrative 11/19/2024 3:28 PM CDT EXAM: MR LIVER W/O and W CONTRAST LOCATION: [facility] DATE: 11/17/2024 INDICATION: history of cirrhosis and elevating AFP COMPARISON: 10/25/2024 TECHNIQUE: Routine MRI liver protocol including T1 in/out phase, diffusion, multiplane T2, and dynamic T1 with IV contrast. CONTRAST: 5.8ml dwayne FINDINGS: LUNG BASES: Unremarkable. LIVER: Mild heterogeneous hepatic steatosis. Nonenhancing cystic regions in the right hepatic lobe, presumably represent chronic hematoma/seromas given patient's history of biopsy. These measure approximately 2.9 and 1.8 cm in maximum dimension. Stable tiny left hepatic lobe cyst. No arterial phase hyperenhancing observations. GALLBLADDER/BILIARY: Distended gallbladder with associated gallbladder wall thickening. No significant intra or extra hepatic biliary ductal dilatation.. PANCREAS: No pancreatic ductal dilatation SPLEEN: Mild splenomegaly reaching 13.5 cm. ADRENALS: Unremarkable. KIDNEYS: No hydronephrosis. BOWEL: Unremarkable. LYMPH NODES: Multiple reactive subcentimeter upper abdominal nodes. VASCULATURE: No abdominal aortic aneurysm. Patent portal vein. MUSCULOSKELETAL: Multilevel spondylosis. OTHER: No abdominal ascites Procedure Note Marcellus Nelson MD - 11/19/2024 EXAM: MR LIVER W/O and W CONTRAST LOCATION: [facility] DATE: 11/17/2024 INDICATION: history of cirrhosis and elevating AFP COMPARISON: 10/25/2024 TECHNIQUE: Routine MRI liver protocol including T1 in/out phase,diffusion, multiplane T2, and dynamic T1 with IV contrast. CONTRAST: 5.8ml dwayne FINDINGS: LUNG BASES: Unremarkable. LIVER: Mild heterogeneous hepatic steatosis. Nonenhancing cystic regionsin the right hepatic lobe, presumably represent chronic hematoma/seromasgiven patient's history of biopsy. These measure approximately 2.9 and 1.8cm in maximum dimension. Stable tiny left hepatic lobe cyst. No arterial phase hyperenhancingobservations. GALLBLADDER/BILIARY: Distended gallbladder with associated gallbladderwall thickening. No significant intra or extra hepatic biliary ductaldilatation.. PANCREAS: No pancreatic ductal dilatation SPLEEN: Mild splenomegaly reaching 13.5 cm. ADRENALS: Unremarkable. KIDNEYS: No hydronephrosis. BOWEL: Unremarkable. LYMPH NODES: Multiple reactive subcentimeter upper abdominal nodes. VASCULATURE: No abdominal aortic aneurysm. Patent portal vein. MUSCULOSKELETAL: Multilevel spondylosis. OTHER: No abdominal ascites IMPRESSION: 1. No MR evidence of suspicious hepatic lesions. 2. Morphologic changes of cirrhosis without ascites. 3. Mild splenomegaly. 4. No bladder wall thickening and significant distention is unchanged. Dominic Khan MD IM MRI ORDERABLES F inal Result documented in this encounter Visit Diagnoses Diagnosis Alcoholic cirrhosis of liver without ascites (H) Alcoholic cirrhosis of liver documented in this encounter Administered Medications Inactive Administered Medications - up to 3 most recent administrations Medication Order MAR Action Action Date Dose Rate Site gadobutrol (GADAVIST) injection 5.86 mL 5.86 mL (0.1 mL/kg 58.6 kg), Intravenous, ONCE, On Wed11/17/24 at 0830, For 1 dose, Supplied by, and administered by MRI. $Given 11/17/2024 8:28 AM CDT 5.86 mLs documented in this encounter Care Teams Perinatal Coordinator Relationship Specialty Start Date End Date Kit Carmen PAShannanC [facility] [id number] [place] [address] PCP - General Physician Manager Marketing 08/24/17 Dominic Khan MD [address] [place] [phone] Gastroenterology 08/16/24 Dominic Khan MD [address] [place] [phone] Assigned Gastroenterology Provider 11/14/24 documented as of this encounter
[2024-12-26] VITALS (32 sets, daily range): BP systolic 91–124; BP diastolic 50–77; PULSE 106–114; RESP 18; TEMP 38.1; O2SAT 94–100; BMI 23.1
--- OUTSIDE RECORDS SUMMARY | 2024-12-26 11:43 | XMS_ITS | Encounter Summary ---
Author Organization [place] Address [address] [place] [address] Care Team Providers Care Meat Pickler Name Role Phone Kit Carmen PA-C Primary Care Provider + [phone] Dominic Khan MD Unavailable + [phone] Dominic Khan MD Unavailable + [phone] Encounter Details Date Type Department Care Team (Late st Contact Info) Description 08/16/2024 MyC Medical Advice Initial Department [address] [place] [phone] [facility] Social History Tobacco Use Types Packs/Day Years Used Date Smoking Tobacco: Never Assessed Adolescent Education Answer Date Record ed Getting School Help Needed Not on file 11/22 Comments Unknown Sex and Gender Information Value Date Recorded Sex Assigned at Not on file 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 Gender Identity Not on file Sexual Orientation Not on file documented as of this encounter Plan of Treatment Upcoming Encounters Date Type Department Care Team (Late st Contact Info) Description 04/23/2025 8:00 AM FRIT COATER Lab [facility] [address] [place] [address] Dominic Khan MD [address] [place] [address] [phone] 04/23/2025 9:00 AM FRIT COATER Office Visit [facility] [address] [phone] Dominic Khan MD [address] [place] [phone] documented as of this encounter Visit Diagnoses Not on filedocumented in this encounter Care Teams Meat Pickler Relationship Specialty Start Date End Date Kit Carmen PA-C [facility] [address] [place] [address] PCP - General Physician Overhead Worker 08/24/17 Dominic Khan MD [address] [place] [id number] Gastroenterology 08/16/24 Dominic Khan MD [address] [place] [id number] Assigned Gastroenterology Provider 11/14/24 documented as of this encounter
--- OUTSIDE RECORDS SUMMARY | 2024-12-26 11:43 | XMS_ITS | Clinical Summary ---
Author Organization [facility] Address [address] [place] [address] Care Team Providers Care Guideman Name Role Phone Kit Carmen PA-C Primary Care Provider + [phone] Dominic Khan MD Unavailable + [phone] Dominic Khan MD Unavailable + [phone] Allergies No known active allergies Medications ondansetron (ZOFRAN ODT) 4 MG ODT tab Take 1 tablet (4 mg) by mouth every 8 hours as needed for nausea or vomiting. 10 tablet 4 Active levothyroxine (SYNTHROID/LEVOTHRO ID) 25 MCG tablet Take 25 mcg by mouth. Active carvedilol (COREG) 3.125 MG tablet Take 3.125 mg by mouth 2 times daily (with meals). Active progesterone (PROMETRIUM) 100 MG capsule Active thyroid (ARMOUR) 90 MG tablet Take 90 mg by mouth. Active thyroid (ARMOUR) 60 MG tablet Active spironolactone (ALDACTONE) 50 MG tablet Take 1 tablet by mouth daily. 5 Active WEGOVY 1.7 MG/0.75ML pen Inject 1.7 mg subcutaneou sly. Active atorvastatin (LIPITOR) 20 MG tablet Take 1 Tablet (20 mg) by mouth at bedtime.* Active lactulose 20 GM/30ML solutionIndications :Alcoholic cirrhosis of liver without ascites (H),Hepatic encephalopathy (H) Take 30 mLs (20 g) by mouth 2 times daily. 5400 mL 1 09/22/202 5 Active Active Problems Problem Noted Date Diagnosed Date Acquired hypothyroidism 11/09/2024 Alcoholic cirrhosis of liver without ascites Benign essential hypertension 11/09/2024 Dyslipidemia 11/09/2024 Alcohol use 11/09/2024 Tubular adenoma of colon 11/02/2024 Encounters Date Type Department Care Team Description 11/20/2024 Results Follow-Up [facility] Hepatology [address] [address] Dominic Khan MD Dx: Alcoholic cirrhosis of liver without ascites (H) (Primary Dx) 11/17/2024 7:49 AM CDT - 11/17/2024 11:59 PM CDT Hospital Encounter [facility] [place] [address] Dominic Khan MD Alcoholic cirrhosis of liver without ascites (H) Discharge Disposition: Home or Self Care 11/17/2024 Travel 11/16/2024 Telephone [facility] Hepatology [address] [address] Dominic Khan MD Symptoms (Call back) 11/14/2024 8:45 AM CDT Lab [facility] [address] [place] [phone] Alcoholic cirrhosis of liver without ascites (H) 11/14/2024 Travel 11/10/2024 Telephone [facility] Hepatology [address] [address] Dominic Khan MD Medication Request 11/10/2024 Telephone [facility] Hepatology [address] [address] Dominic Khan MD Call Back (MRI Order) 11/09/2024 8:30 AM CDT Virtual Visit [facility] Hepatology [address] [address] Dominic Khan MD Alcoholic cirrhosis of liver without ascites (H) (Primary Dx); Self-referral; Acquired hypothyroidism; Benign essential hypertension; Dyslipidemia; Alcohol use 11/09/2024 PRE VISIT [facility] Clinic [address] [phone] Dominic Khan MD *-*INCOMING RECORDS*-* from Last 3 Months Family History Medical History Relation Comments Breast Cancer No family hx of Ovarian Cancer No family hx of Social History Tobacco Use Types Packs/Day Years Used Date Smoking Tobacco: Never Smokeless Tobacco: Never Tobacco Cessation:Counseling Given: Not Answered PHQ-2 Answer Date Recorded PHQ-2 Score 0 11/09/2024 Adolescent Education Answer Date Record ed Getting School Help Needed Not on file 11/22 Comments No Sex and Gender Information Value Date Recorded Sex Assigned at Not on file Legal Sex Female 3:27 AM DEICER INSPECTOR ELECTRIC Gender Identity Not on file Sexual Orientation Not on file Last Filed Vital Signs Vital Sign Reading Time Taken Comments Blood Pressure 127/81 02/20/2024 1:05 AM DEICER INSPECTOR ELECTRIC Pulse 115 02/20/2024 1:05 AM DEICER INSPECTOR ELECTRIC Temperature 37.3 C (99.1 F) 02/19/2024 8:40 PM DEICER INSPECTOR ELECTRIC Respiratory Rate 20 02/19/2024 8:40 PM DEICER INSPECTOR ELECTRIC Oxygen Saturation 99% 02/20/2024 1:05 AM DEICER INSPECTOR ELECTRIC Inhaled Oxygen Concentration - - Weight 58.6 kg (129 lb 3 oz) 02/19/2024 8:40 PM DEICER INSPECTOR ELECTRIC Height 167.6 cm (5' 6) 02/19/2024 8:40 PM DEICER INSPECTOR ELECTRIC Body Mass Index 20.85 02/19/2024 8:40 PM DEICER INSPECTOR ELECTRIC Plan of Treatment Upcoming Encounters Date Type Department Care Team (Late st Contact Info) Description 04/23/2025 8:00 AM DEICER INSPECTOR ELECTRIC Lab [facility] Lab [address] 1st [place] [address] Dominic Khan MD [address] [place] [address] 04/23/2025 9:00 AM DEICER INSPECTOR ELECTRIC Office Visit [facility] Hepatology Clinic [address] [address] Dominic Khan MD [address] [place] [address] Health Maintenance Due Date Last Done Comments ADVANCE CARE PLANNING 1975 ANNUAL REVIEW OF HM ORDERS 1975 CT COLONOGRAPHY 1975 FIT 1975 FLEX SIG 1975 LIPID 1975 TSH W/FREE T4 REFLEX 1975 HIV SCREENING 12/01/1990 PNEUMOCOCCAL VACCINE: PEDIATRICS (0 to 5 YEARS) AND AT-RISK PATIENTS (6 to 49 YEARS) (1 of 2 - PCV) 12/01/1994 HEPATITIS A VACCINE (2 of 3 - Hep A Twinrix risk 3-dose series) 06/02/2024 05/05/2024 HEPATITIS B VACCINE (2 of 3 - Hep B Twinrix 3-dose series) 06/02/2024 05/05/2024 COVID-19 VACCINE ( season) 2024 12/27/2020, 05/30/2020, 05/09/2020 INFLUENZA VACCINE (#1) 2024 PAP 11/26/2024 11/26/2021 sDNA (Cologuard) 12/11/2024 12/11/2021, 12/11/2021 YEARLY PREVENTIVE VISIT 03/02/2025 03/02/19 25, 04/12/2023, 11/26/2021 BMP 11/14/2025 11/14/2024, 1209/2023, 01/23/2009 ZOSTER VACCINE (1 of 2) 12/01/2025 MAMMO SCREENING 03/03/2026 03/03/2024, 02/22, 09/09/2022, Additional history exists DTAP/TDAP/TD VACCINE (3 - Td or Tdap) 04/28/2026 04/28/2016, 06/22/2006 DIABETES SCREENING 11/15/2027 11/14/2024, 0 05/30/2024, 02/19/2024, Additional history exists COLONOSCOPY 06/05/2029 06/05/2024, 05/23, 06/05/2024 COLORECTAL CANCER SCREENING 06/05/2029 PHQ-2 (once per calendar year) Completed 11/09/2024 HEPATITIS C SCREENING Completed 11/14/2024, 022 HPV VACCINE (No Doses Required) Completed MENINGITIS VACCINE Aged Out No longer eligible based on patient's age to complete this topic Procedures Procedure Name Priority Date/Time Associated Diagnosis Comments MR LIVER W/O & W CONTRAST Routine 2024 8:28 AM CDT Alcoholic cirrhosis of liver [...] F ACTIN EIA WITH REFLEX Routine 11/15/19 8:47 AM CDT Alcoholic cirrhosis of liver without ascites (H) MITOCHONDRIAL M2 ANTIBODY IGG Routine 11/14/2024 8:47 [...] Alcoholic cirrhosis of liver without ascites (H) MRI CARDIAC - HIM SCAN 5 12:00 AM CDT MRI IMAGING - HIM SCAN 5 12:00 AM CDT COLONOSCOPY - HIM SCAN 5 12:00 AM CDT MA DIAGNOSTIC WITH IMPLANTS BILATERAL W/ ARI Routine 09/09/2022 10:57 AM CDT Subareolar mass of left breast from Last 3 Months or Most Recently Relevant to Health Maintenance Results * MR Liver wo & w [...] MR LIVER W/O and W CONTRAST LOCATION: [facility] DATE: 11/17/2024 INDICATION: history of cirrhosis and [...] MR LIVER W/O and W CONTRAST LOCATION: [facility] DATE: 11/17/2024 INDICATION: history of cirrhosis and [...] wall thickening and significant distention is unchanged. Result [facility] us Dominic Khan MD IMG MRI ORDERABLES F inal Result * Mitochondrial M2 Antibody IgG (11/14/2024 8:47 AM CDT) Mitochondrial M2 Antibody IgG 1.7 <4.0 U/mL 11/17/2024 12:29 PM CDT SPECIALTY CORE/PROT/END O Comment:Negative Blood BLOOD SPECIMEN / Unknown Venipuncture / Unknown 11/14/2024 8:47 AM CDT 11/14/2024 8:47 AM CDT us Dominic Khan MD LAB - BLOOD ORDERABL ES Final Result SPECIALTY CORE/PROT/ENDO Specialty Core/Prot/Endo [address] [facility], [address] * Hepatitis B Surface Antibody (11/14/2024 8:47 [...] BLOOD ORDERABL ES Final Result [facility] [address] [facility], Room [address] [place] [address], [facility] * Smooth Muscle Claude IgG Titer (11/14/2024 8:47 AM CDT) Pathologist [facility] Smooth Muscle Claude IgG Titer <1:20 <1:20 11/17/2024 10:34 PM CDT [facility] Comment: Specimen is icteric. Results may be adversely affected. INTERPRETIVE INFORMATION: Smooth Muscle Ab, IgG Titer Less than 1:20 ........ Negative - No antibody detected. 1:20 - 1:80 .......... Weak Positive - Suggest repeat in two to three weeks with fresh specimen. 1:160 or greater ...... Positive - Suggestive of autoimmune hepatitis or chronic active hepatitis. Performed By: [facility] [address] [place] [address] Dividend Deposit Voucher Clerk: Doroteo Shipman MD, PhD CLIA Number: [id number] Blood BLOOD SPECIMEN / Unknown Venipuncture / Unknown 11/14/2024 8:47 AM CDT 11/14/2024 8:47 AM CDT Dominic Khan MD LAB - BLOOD ORDERABL ES Final Result [facility] [address] [place] [address] [phone] * IgG (11/14/2024 8:47 AM CDT) [facility] Immunoglobulin G 1,512 610 - 1,616 mg/dL 11/15/2024 7:52 AM CDT [facility] SPECIALTY CORE/PROT/END O Blood BLOOD SPECIMEN / Unknown Venipuncture / Unknown 11/14/2024 8:47 AM CDT 11/14/2024 8:47 AM CDT Dominic Khan MD LAB - BLOOD ORDERABL ES Final Result UM SPECIALTY CORE/PROT/ENDO UM Specialty Core/Prot/Endo [address] [facility], [address] * Phosphatidylethanol (PEth), Whole Blood (11/14/2024 8:47 AM CDT) PEth 16:0/18:1 (POPEth) <10 ng/mL 11/16/2024 3:16 PM CDT [facility] Comment: PEth 16:0/18:1 (POPEth) Less than 10 ng/mL............Not detected Less than 20 ng/mL............Abstinence or light alcohol consumption 20 - 200 ng/mL................Moderate alcohol consumption Greater than 200 ng/mL........Heavy alcohol consumption or chronic alcohol use (Reference: Vinicius Giang and Kevon Bolanos 2018 J. Forensic Sci) PEth 16:0/18:2 (PLPEth) <10 ng/mL 11/16/2024 3:16 PM CDT [facility] Comment:Reference ranges are not well established. EER Phosphatidylethanol (PETH) See Note 11/16/2024 3:16 PM CDT [facility] Comment: Authorized individuals can access the [facility] Enhanced Report with an [facility] Connect account using the following link. Your local lab can assist you in obtaining the patient report if you don't have a Connect account. [email or web address] PEth Interpretation See Comment 11/16/2024 3:16 PM CDT [facility] Comment: Phosphatidylethanol (PEth) is a group [...] developed and its performance characteristics determined by [facility]. It has not been cleared or approved by the U.S. Food and Drug Administration. This test was performed in a CLIA-certified laboratory and is intended for clinical purposes. Performed By: [facility] [address] [place] [id number] Dividend Deposit Voucher Clerk: Doroteo Shipman MD, PhD CLIA Number: [id number] Blood BLOOD SPECIMEN / Unknown Venipuncture / Unknown 11/14/2024 8:47 AM CDT 11/14/2024 8:47 AM CDT Dominic Khan MD LAB - BLOOD ORDERABL ES Final Result Performing Organization Address City/[facility]/ZIP Co de Phone Number [facility] [address] [place] [phone] [phone] * Anti Nuclear Claude IgG by IFA with Reflex (11/14/2024 8:47 AM CDT) NABIL interpretation Negative Negative 2024 10:03 AM CDT [facility] SPECIALTY CORE/PROT/EN DO Comment: Negative: <1:40 Borderline Positive: 1:40 - 1:80 Positive: >1:80 Blood BLOOD SPECIMEN / Unknown Venipuncture / Unknown 11/14/2024 8:47 AM CDT 11/14/2024 8:47 AM CDT Dominic Khan MD LAB - BLOOD ORDERABL ES Final Result [facility] SPECIALTY CORE/PROT/ENDO UM Specialty Core/Prot/Endo 500 [facility] [address] [facility], Room 3[address] * (ABNORMAL) INR (11/14/2024 8:47 AM CDT) INR 1.65(H) 0.85 - 1.15 11/14/2024 1:01 PM CDT [facility] PT 19.8(H) 11.8 - 14.8 Seconds 11/14/2024 1:01 PM CDT [facility] Blood BLOOD SPECIMEN / Unknown Venipuncture / Unknown 11/14/2024 8:47 AM CDT 11/14/2024 8:47 AM CDT Dominic Khan MD LAB - BLOOD ORDERABL ES Final Result [facility] LABORATORY [facility] Lab [address] Lab (no room number, 1st floor of clinic) [place] [address], [facility] * IgM (11/14/2024 8:47 AM CDT) Pathologist [facility] Immunoglobulin M 185 35 - 242 mg/dL 11/15/2024 7:52 AM CDT [facility] SPECIALTY CORE/PROT/END O Blood BLOOD SPECIMEN / Unknown Venipuncture / Unknown 11/14/2024 8:47 AM CDT 11/14/2024 8:47 AM CDT Dominic Khan MD LAB - BLOOD ORDERABL ES Final Result [facility] SPECIALTY CORE/PROT/ENDO UM Specialty Core/Prot/Endo [address] [facility] [address] [facility] Building, Room 3[address] * Hepatitis C antibody (11/14/2024 8:47 AM CDT) Pathologist [facility] Hepatitis C Antibody Nonreactive Nonreactive 11/14/2024 4:45 PM CDT [facility] Comment: A nonreactive screening test result [...] ORDERABL ES Final Result Performing Organization Address [facility]/ZIP Co de Phone Number [facility] [address] [facility], [address] [place] [phone] [place] [address] * Hepatitis B surface antigen (11/14/2024 8:47 AM CDT) Hepatitis B Surface Antigen Nonreactive Nonreactive 11/14/2024 4:45 PM CDT [facility] Comment: Assay performance characteristics have not been established for testing of newborns. Blood BLOOD SPECIMEN / Unknown Venipuncture / Unknown 11/14/2024 8:47 AM CDT 11/14/2024 8:47 AM CDT Dominic Khan MD LAB - BLOOD ORDERABL ES Final Result Performing Organization Address City/[facility] Co de Phone Number [facility]ORY [facility] [address] [facility], [address] [place] [phone] * Hepatitis B core antibody (11/14/2024 8:47 AM CDT) Hepatitis B Core Antibody Total Nonreactive Nonreactive 11/14/2024 4:45 PM CDT [facility] Comment: Nonreactive hepatitis B core antibody [...] BLOOD ORDERABL ES Final Result [facility] [address] [facility], Room [address] [place] [phone] * (ABNORMAL) Hepatic function panel (11/14/2024 8:47 AM CDT) Pathologist [facility] Protein Total 7.1 6.4 - 8.3 g/dL [...] BLOOD ORDERABL ES Final Result [facility] [address] [facility], [address] [place] [phone] * (ABNORMAL) F Actin EIA with reflex (11/14/2024 8:47 AM CDT) F-Actin (Smooth Muscle) Ab, IgG by KOBY 20(H) 0 - 19 Units 11/16/2024 12:36 AM CDT [facility] Comment: REFERENCE INTERVAL: F-Actin (Smooth Muscle) Antibody, [...] suspicion for AIH is strong. Performed By: [facility] [address] [place] [address] Dividend Deposit Voucher Clerk: Doroteo Shipman MD, PhD CLIA Number: [id number] Blood BLOOD SPECIMEN / Unknown Venipuncture / Unknown 11/14/2024 8:47 AM CDT 11/14/2024 8:47 AM CDT us Dominic Khan MD LAB - BLOOD ORDERABL ES Final Result [facility] [address] [place] [address], [facility] [phone] * (ABNORMAL) AFP tumor marker (11/14/2024 8:47 AM CDT) Pathologist [facility] AFP tumor marker 15.7(H) <=8.3 ng/mL 11/14/2024 [...] BLOOD ORDERABL ES Final Result [facility] [address] [facility], Room [address] [place] [phone] * (ABNORMAL) Basic metabolic panel (11/14/2024 [...] BLOOD ORDERABL ES Final Result [facility] 500 [facility], Room [address] [place] [address], [facility] * (ABNORMAL) CBC with platelets (11/14/2024 8:47 [...] - 450 10e3/uL 11/14/2024 3:03 PM CDT [facility] Blood BLOOD SPECIMEN / Unknown Venipuncture / Unknown 11/14/2024 8:47 AM CDT 11/14/2024 8:47 AM CDT Dominic Khan MD LAB - BLOOD ORDERABL ES Final Result [facility] [address] Lab (1st floor, no room number) [place] [address], [place] * MRI Imaging - HIM Scan (10/25/2024 12:00 AM CDT) Anatomical Region Laterality Modality Other 10/25/2024 us Provider Outside IMG MRI ORDERABLES Final Result * MRI Cardiac - HIM Scan (10/25/2024 12:00 AM CDT) Anatomical Region Laterality Modality Other 10/25/2024 us Provider Outside IMG MRI ORDERABLES Final Result * Colonoscopy - HIM Scan (06/05/2024 12:00 AM CDT) 06/05/2024 us Provider Outside PROCEDURES Final Result * MA Diagnostic with Implants Bilateral w/Ari [...] greater than LEFT. No concerning findings identified. us Kit Carmen PA-C IMG MAMMOGRAPHY ORDERABLES F inal Result from Last 3 Months or Most Recently Relevant to Health Maintenance Insurance [facility] Care Teams Guideman Relationship Specialty Start Date End Date Kit Carmen PA-C [facility] [address] [place], [place] [phone] PCP - General Physician Soccer Coach 08/24/17 Dominic Khan MD [address] [place] [address] Gastroenterology 08/16/24 Dominic Khan MD [address] [place] [address] Assigned Gastroenterology Provider 11/14/24
--- OUTSIDE RECORDS SUMMARY | 2024-12-26 11:43 | XMS_ITS | Encounter Summary ---
Author Organization [employer] Address [address] [place] [address] Care Team Providers Care Charging Plug Placer Name Role Phone Kit Carmen PA-C Primary Care Provider [phone] Dominic Khan MD Unavailable +- [phone] Reason for Visit * Reason Onset Date Comments Medication Request 11/10/2024 Encounter Details Date Type Department Care Team (Late st Contact Info) Description 11/10/[address] [facility] Hepatology Clinic [address] [address] Dominic Khan MD [address] [place] [address] Medication Request Social History Tobacco Use Types Packs/Day Years Used Date Smoking Tobacco: Never Smokeless Tobacco: Never PHQ-2 Answer Date Recorded PHQ-2 Score 0 11/09/2024 Adolescent Education Answer Date Record ed Getting School Help Needed Not on file 11/22 Comments No Sex and Gender Information Value Date Recorded Sex Assigned at Not on file Legal Sex Female 3:27 AM DISPOSAL OPERATOR Gender Identity Not on file Sexual Orientation Not on file documented as of this encounter Miscellaneous Notes * Telephone Encounter - Crystal Hansen RN - 11/13/2024 9:30 AM CDT Per visit notes, pt to start lactulose. Prescription sent to requested pharmacy, called pt to notify and provide education on lactulose management. Crystal Jade, RN Cut Off Saw Operator [facility] [place] [facility] Hepatology Clinic/Specialty Program * Telephone Encounter - Sam Rosado - 11/10/2024 4:08 PM CDT [facility] Call Center Phone Message May a detailed message be left on voicemail: yes Reason for Call: Other: Lia is calling in regards to a prescription that she was suppposed to have sent to her pharmacy with [facility] in [place], as this was mentioned in her appt notes from 11/09 but they have not received anything. Please respond accordingly Action Taken: Message routed to: [facility] Hep Travel Screening: Not Applicable Date of Service: documented in this encounter Plan of Treatment Upcoming Encounters Date Type Department Care Team (Late st Contact Info) Description 04/23/2025 8:00 AM DISPOSAL OPERATOR Lab [facility] Lab [address] [phone] Dominic Khan MD [address] [place] [phone] 04/23/2025 9:00 AM DISPOSAL OPERATOR Office Visit [facility] Hepatology Clinic [address] [phone] Dominic Khan MD [address] [place] [address] documented as of this encounter Visit Diagnoses Diagnosis Alcoholic cirrhosis of liver without ascites (H)- Primary Alcoholic cirrhosis of liver Hepatic encephalopathy (H) Hepatic encephalopathy documented in this encounter Care Teams Charging Plug Placer Relationship Specialty Start Date End Date Kit Carmen PA-C [facility] [address] [place] [address] PCP - General Physician Growth Hacker 08/24/17 Dominic Khan MD [address] [place] [address] Gastroenterology 08/16/24 documented as of this encounter
--- OUTSIDE RECORDS SUMMARY | 2024-12-26 11:43 | XMS_ITS | Encounter Summary ---
Author Organization [place] Address [address] [place] [address] Care Team Providers Care Facility Assistant Name Role Phone Kit Carmen PA-C Primary Care Provider + [phone] Dominic Khan MD Unavailable + [phone] Dominic hKan MD Unavailable + [phone] Encounter Details Date Type Department Care Team (Latest Contact Info) Description 11/17/2024 Travel Social History Tobacco Use Types Packs/Day Years Used Date Smoking Tobacco: Never Smokeless Tobacco: Never PHQ-2 Answer Date Recorded PHQ-2 Score 0 11/09/2024 Adolescent Education Answer Date Record ed Getting School Help Needed Not on file 11/22 Comments No Sex and Gender Information Value Date Recorded Sex Assigned at Not on file Legal Sex Female 3:27 AM ASSISTANT DIRECTOR OF SECURITY Gender Identity Not on file Sexual Orientation Not on file documented as of this encounter Plan of Treatment Upcoming Encounters Date Type Department Care Team (Late st Contact Info) Description 04/23/2025 8:00 AM ASSISTANT DIRECTOR OF SECURITY Lab [facility] [address] [place] [address] Dominic Khan MD [address] [place] [phone] 04/23/2025 9:00 AM ASSISTANT DIRECTOR OF SECURITY Office Visit [facility] Hep[facility] [address] [address] Dominic Khan MD [address] [place] [address] documented as of this encounter Visit Diagnoses Not on filedocumented in this encounter Care Teams Facility Assistant Relationship Specialty Start Date End Date Kit Carmen PA-C [facility] [address] [place] [address] PCP - General Physician Survey Instrument Operator 08/24/17 Dominic Khan MD [address] [place] [address] Gastroenterology 08/16/24 Dominic Khan MD [address] [place] [address] Assigned Gastroenterology Provider 11/14/24 documented as of this encounter
--- OUTSIDE RECORDS SUMMARY | 2024-12-26 11:43 | XMS_ITS | Clinical Summary ---
Author Organization [facility] Address [address] [place] [address] Care Team Providers Care Recycling Operations Manager Name Role Phone Kit Carmen Primary Care Provider [phone] Allergies No known active allergies Medications TESTOSTERONE 2% IN EUCERIN CREAM ([facility] AMB MIX) Apply to back of the knees once daily 0 02/28/19 16 Active atorvastatin (LIPITOR) 20 mg tabletIndications: Hyperlipidemia, unspecified hyperlipidemia type Take 1 Tablet (20 mg) by mouth at bedtime. 90 Tablet 3 03/02/19 25 Active cetirizine (ZYRTEC) 10 mg tablet Take 10 mg by mouth once daily if needed for Allergy Symptoms or Rhinitis. Active levothyroxine (SYNTHROID) 25 mcg tablet Take 25 mcg by mouth before breakfast. Active ondansetron (ZOFRAN ODT) [address] 8 mg on the tongue every 8 hours if needed for Nausea/Vomiting. Active progesterone micronized (PROMETRIUM) 200 mg capsule Take 200 mg by mouth two times daily. This product contains peanut oil. Please verify patient allergies. Active thyroid, pork, (Golva Thyroid) 15 mg tablet Take 15 mg by mouth once daily. Take with 90 mg tablet for a total dose of 105 mg Active thyroid (ARMOUR THYROID) 90 mg tablet Take 90 mg by mouth once daily. Take with 15 mg tablet for a total dose of 105 mg Active omeprazole 20 mg tablet Take 20 mg by mouth once daily. Active cholecalciferol (Vitamin D-3) 2,000 unit capsule Take 2,000 units by mouth once daily. Active Lactobacillus acidophilus (PROBIOTIC ORAL) Take 1 Capsule by mouth once daily. Active naltrexone (REVIA) 50 mg tablet Take 1 Tablet by mouth once daily. 03/24/19 25 Active semaglutide (weight loss) (Wegovy) 1.7 mg/0.75 mL subcutaneous penIndications:Ove rweight Inject 1.7 mg subcutaneous once weekly. 6 mL 3 07/15/19 25 Active carvediloL (COREG) 3.125 mg tablet Take 3.125 mg by mouth two times daily with meals. Active ALPRAZolam (XANAX) 1 mg tabletIndications: Situational anxiety TAKE 1/2-1 TABLET BY MOUTH DAILY NEEDED FOR SITUATIONAL ANXIETY. MUST LAST 2 MONTHS. 15 Tablet 10/14/19 25 Active trimethoprim-sulfa methoxazole 160-800 mg tabIndications:Rec urrent UTI,Skin infection Take 1 Tablet by mouth two times daily for 10 days. 20 Tablet 11/20/19 25 025 Active Problems Problem Noted Date Diagnosed Date Abdominal pain 11/19/2024 Overview (11/19/2024): -in setting of abdominal pelvic ascites suspected to be hemorrhage as above -pain and nausea management as needed Abnormal liver diagnostic imaging 11/19/2024 Anemia 11/19/2024 Overview (11/19/2024): -acute blood loss suspected -hemoglobin 9.5, previously 11.1 in February -recheck in a.m., follow-up with GI if continues to down trend Elevated AFP 11/19/2024 Elevated liver enzymes 11/19/2024 Stage 3 chronic kidney disease 11/19/2024 Overview (11/19/2024): 11/14/24: Cr 1.32 mg/dL 11/14/24: GFR 50 mL/min/1.73m2 11/14/24: BUN 27.4 mg/dL On meds: carvedilol, cholecalciferol, furosemide (external), lisinopril (external), spironolactone (external) Paroxysmal tachycardia 11/19/2024 Overview (11/19/2024): AI Summary: As of 05/10/24: The patient has a history of supraventricular tachycardia (SVT), first noted on 06/27/2018. On 04/12/2023, SVT was listed as an active problem. The patient's SVT is managed with metoprolol succinate; additional details regarding management and progression are mentioned in the notes but not explicitly stated. 06/28/24: HR 90.0 /min 06/28/24: K 4.5 mmol/L On meds: atorvastatin, carvedilol Recent encounter dx: 05/08/24: Appointment - [facility] [address] 04/09/24: [facility] 03/02/24: Support OP Encounter - [email or web address] 03/02/24: Appointment - [facility] [[email or web address] 06/07/23: Appointment - [facility] [[email or web address] Recent notes: 05/10/24: Progress Notes by Rachel Head MD ... [+] ? Supraventricular tachycardia (HC) 06/27/2018 05/08/24: Progress Notes by Reinier Kan MD ... [+] Supraventricular tachycardia (HC) ... [+] ? Supraventricular tachycardia (HC) 04/12/2023 04/13/24: Progress Notes - Nursing Notes by LAURO Albarran ... [+] ? Supraventricular tachycardia (HC) I47.10 04/09/24: [facility]09[facility]24 by KIT CARMEN ... [+] Hold atorvastatin (8) Supraventricular tachycardia: Chronic ... [+] is a 48 year old female past medical history significant for hypertension, hyperlipidemia, supraventricular tachycardia controlled on a beta-kashif, alcohol use disorder, transaminitis is admitted to the medical floor from the ED for abdominal pain in setting of abdominal hemorrhage. 04/09/24: Corresp-Clinical Notes - [facility] ... [+] Mikayla Banerjee is a 48 year old female past medical history significant for hypertension, Jyperlipidemia, supraventricular tachycardia controlled on a beta-kashif, alcohol use disorder, transaminitis is admitted to the medical floor from the ED for abdominal pain in setting of abdominal hemorrhage. ... [+] Overweight (ICD-10) Supraventricular tachycardia 147.10 ... [+] Supraventricular tachycardia, unspecified (ICD-10) Cirrhosis of liver K74.60 ... [-] Has a consult with Hematology this coming week Status: Acute (5) Transaminitis: Problem comment: -total bili 6.3, direct bili 1.9, AST 87, ALT 25, alk-phos 108 -Labs 1 month ago show total! bilirubin 4, AST 216 alk-phos 153 ollowed by [facility] Status: Chronic (6) Overweight: Problem comment: -Has been on semaglutide for 6 months, last dose was end of February 2024 Status: Chronic (7) Hypertension: ... Alcohol use 11/09/2024 Overview (11/19/2024): -reports 1-2 drinks nightly, sometimes more. Elevated liver enzymes for at least 4 years -last drink was 03/16/2024 Benign essential hypertension 11/09/2024 Dyslipidemia 11/09/2024 Lesion of liver 09/04/2024 Hemorrhoids 06/05/2024 Alcoholic cirrhosis 04/18/2024 Hemoperitoneum 04/09/2024 Cirrhosis 04/09/2024 Elevated transaminase level 04/09/2024 Hyperbilirubinemia 04/09/2024 Acute blood loss anemia 04/09/2024 Overview (11/19/2024): - Hgb 11.1 in February, 9.5 on admission yesterday, 7.9 today - Associated with soft/low BP today - Suspect ongoing bleeding as below - Give 1 unit PRBC Acquired hypothyroidism 04/09/2024 Other cirrhosis of liver 03/02/2024 Overweight 06/07/2023 Overview (11/19/2024): -Has been on semaglutide for 6 months, last dose was end of February 2024 Supraventricular tachycardia 04/12/2023 Chronic alcoholic hepatitis 02/25/2023 Pap smear for cervical cancer screening 01/07/20 22 Overview (01/06/2022): 11/2021 NIL/ HPV negative Plan: Pap/ HPV due 11/2026 Hyperlipidemia, unspecified 01/24/2019 Hypertension 02/01/2018 Old tear of medial meniscus of left knee 017 Situational anxiety 02/28/2015 Resolved Problems Problem Noted Date Diagnosed Date Resolved Date Alcohol induced acute pancreatitis 11/19/2024 11/19/2024 Acute pancreatitis 11/19/2024 Acute alcoholic liver disease 11/19/2024 11/19/2024 Uncontrollable nausea and vomiting 11/19/2024 11/19/2024 Overview (11/19/2024): - ongoing - continue zofran prn Supraventricular tachycardia 06/27/2018 06/07/2023 Overview (06/27/2018): Patient has been evaluated at [facility] and no underlying abnormality found. Patient has propranolol to use. Encounters Date Type Department Care Team Description 12/26/2024 10:10 AM BOAT ENGINE MECHANIC Ancillary Procedure Formerly [facility] [address] [facility] [address] [facility] [address] [place] [address] Arrived 12/26/2024 9:15 AM BOAT ENGINE MECHANIC Office Visit [facility] [address] [facility] [address] [address] [place] [address] Steph Beard PA URI (Patient presents to ambulatory urgent care today with C/O having chest pressure with breathing. She feels shortness of breath. Returning from [place]. Last weekend started having cold symptoms and medicated with tylenol and nyquil. While in [place] she had a bloody nose that lasted 18 hours. Went to Urgent Care and received Afrin. Today she is feeling like she may have pneumonia. /) 12/26/2024 Travel 11/27/2024 Refill [facility] [[email or web address] [address] [place] [address] Kit Carmen PA Refill Request (Nitrofurantoin Macrocrystals/monoh ydrate) 11/19/2024 10:45 AM CDT Office Visit [facility] [address] [facility] [address] [place] [address] Lorin Oneal NP UTI (Patient presents to ambulatory urgent care today with C/O having frequent urination. Just completed macrobid 6 days ago for UTI. /); Finger Injury (Bilateral thumb injury possible dog bite and or a broken vase onset 4 days ago she was running a temp. Both thumbs are red and pussy and bloody. ) 11/19/2024 Travel 10/06/2024 Refill [facility] [[email or web address] [address] [place] [address] Kit Carmen PA Refill Request (Alprazolam) from Last 3 Months Immunizations Immunization Administration Dates Next Due COVID-19 vaccine (FONU2 30mcg/0.3mL) P F, MDV 05/30/2020,05/09/2020 HepA-HepB (Twinrix) 05/05/2024 Td (Age >=7 Years) 04/28/2016 Td, Preservative Free (age >= 7 Years) 7 Tdap 06/22/2006 Family History Medical History Relation Name Comments Cancer Father skin Hypertension Maternal Grandfather Stroke Maternal Grandfather Diabetes Maternal Grandmother Heart Disease Maternal Grandmother o f [place] Hypertension Maternal Grandmother Diabetes Maternal Uncle 1 Heart Disease Maternal Uncle 1 x 2 - TN @ 40 & [place] @58 Diabetes Maternal Uncle 2 Hypertension Mother [...] Tobacco: Never Alcohol Use Standard Drinks/Week Comments Not Currently 7 (1 standard drink = 0.6 oz pur e alcohol) sober: last drink 03/16/24 PHQ-2 Answer Date Recorded PHQ-2 TOTAL SCORE 0 03/02/2024 Social Connections Answer Date Recorded Do you often feel lonely or isolated from those around you? 0 04/10/2024 Financial Resource Strain Answer Date R ecorded Difficulty of Paying Living Expenses 3 04/10/2024 Difficulty of Paying Living Expenses Not on file 04/10/2024 Food Insecurity Answer Date Recorded Do you worry your food will run out before you are able to buy more? 1 04/10/2024 Transportation Needs Answer Date Record ed Does lack of transportation keep you from medica l appointments? 1 04/10/2024 Does lack of transportation keep you from work, meetings or getting things that you need? 1 04/10/2024 Housing Stability Answer Date Recorded What is your housing situation today? 1 04/10/2024 Interpersonal Safety Answer Date Record ed Are you being hit, kicked, p ushed or yelled at (see row info)? No 04/10/2024 Interpersonal Safety Abuse 12 - 18 Not on file 04/10/2024 Interpersonal Safety Ambulatory Vulnerability No t on file 04/10/2024 Utilities Answer Date Recorded Do you have trouble paying f or utilities (for example, heat, electricity, water, phone)? 1 04/10/2024 Comments No Sex and Gender Information Value Date Recorded Sex Assigned at Not on file Legal Sex Female 6:30 AM BOAT ENGINE MECHANIC Gender Identity Not on file Sexual Orientation Not on file Occupation Industry Job Start Date Job End Date unemployed - looking for work Not on file Not on file Not on file Travel History Travel Start Travel End [place] 11/25/2024 12/26/2024 Obstetrics History Last Filed Vital Signs Vital Sign Reading Time Taken Comments Blood Pressure 120/58 12/26/2024 9:46 AM BOAT ENGINE MECHANIC Pulse 109 12/26/2024 9:46 AM BOAT ENGINE MECHANIC Temperature 37.1 C (98.8 F) 12/26/2024 9:46 AM BOAT ENGINE MECHANIC Respiratory Rate 14 12/26/2024 9:46 AM BOAT ENGINE MECHANIC Oxygen Saturation 98% 12/26/2024 9:46 AM BOAT ENGINE MECHANIC Inhaled Oxygen Concentration - - Weight 60.3 kg (133 lb) 12/26/2024 9:46 AM BOAT ENGINE MECHANIC Height 167.6 cm (5' 6) 09/05/2024 7:56 AM CDT Body Mass Index 21.47 09/05/2024 7:56 AM CDT Plan of Treatment Upcoming Encounters Date Type Department Care Team (Late st Contact Info) Description 01/30/2025 1:20 PM BOAT ENGINE MECHANIC [facility] [address] [place] [address] Francia Lindsay MD [address] [place] [address] [address] [place] [address] Health Maintenance Due Date Last Done Comments HIV for age 15-65 12/01/1990 Pneumococcal series for age 6-49 (1 of 2 - PCV) 12/01/1994 Hepatitis B series for 19+ ( 2 of 3 - Hep B Twinrix 3-dose series) 06/02/2024 05/05/2024 Influenza Vaccine (#1) 2024 Fecal testing sDNA-FIT ([place] guard) for age 45-75 12/11/2024 12/11/2021 Depression screening for age 12+ 03/03/2025 03/03/2024, 03/03/2024, 03/02/2024, Additional history exists Mammogram for age 45-75 03/03/2025 03/03/19, 09/09/2022, 09/09/2022, Additional history exists BMI (ht and wt on same day) for age 18+ 09/04/2025 09/04/2024, 05/08/2024, 04/12/2024, Additional history exists Tetanus booster 04/28/2026 04/28/2016, 08/2016, 06/22/2006 Pap test for age 21-65 11/26/2026 , 11/26/2021, 04/20/2018, Additional history exists Lipids for age 45-75 03/22/2029 03/22/2024, 03/02/2024, 04/12/2023, Additional history exists RSV vaccine for adults or (1 - 1-dose 75+ series) 12/01/2050 Hepatitis C screening for ag e 18-79 Completed 11/26/2021 Procedures Procedure Name Priority Date/Time Associated Diagnosis Comments XR CHEST 2 VIEWS PA AND LATERAL STAT 12/26/2024 10:16 AM BOAT ENGINE MECHANIC Cough, unspecified type URINE CULTURE Routine 11/19/2024 11:02 AM CDT Urinary symptom or sign UA W/ SEDIMENT EXAM REFLEXED PER CRITERIA STAT 11/19/2024 11:02 AM CDT Urinary symptom or sign LIPID PANEL W REFLEX MEASURED LDL Routine 03/22/2024 9:28 AM BOAT ENGINE MECHANIC XR MAMMO HEIDE BILAT SCREEN IMPLANT Routine 03/03/2024 8:38 AM BOAT ENGINE MECHANIC Encounter for screening mammogram for breast cancer SDNA-FIT EXTERNAL (COLOGUARD) Routine 12/11/2021 9:00 PM CDT Screening for colon cancer HPV HIGH RISK Routine 11/26/2021 9:52 AM CDT Pap smear for cervical cancer screening ANTI HCV Routine 11/26/2021 9:10 AM CDT Need for hepatitis C screening test from Last 3 Months or Most Recently Relevant to Health Maintenance Results * XR CHEST 2 VIEWS PA AND LATERAL (12/26/2024 10:16 AM BOAT ENGINE MECHANIC) Anatomical Region Laterality Modality CHEST, THORAX, Lung, HEART Digit al Radiography 12/26/2024 10:2 1 AM BOAT ENGINE MECHANIC Narrative 12/26/2024 10:21 AM BOAT ENGINE MECHANIC For Patients: As a result of the Century Cures Act, medical imaging exams and procedure reports are released immediately into your electronic medical record. You may view this report before your referring provider. If you have questions, please contact your health care provider. INDICATION: : Cough, unspecified type COMPARISON: CT biopsy on September 05, 2024 TECHNIQUE: Two view(s) of the chest FINDINGS/IMPRESSION: The cardiomediastinal silhouette and pulmonary vasculature are unremarkable. Suspected small left-sided pleural effusion with adjacent left basilar opacities may represent atelectasis versus an acute infectious/inflammatory process. The right lung is clear. No pneumothorax. No displaced fractures. Breast implants. Dictated by Manuel Gurrola MD @ 12/26/2024 10:21:08 AM (Electronically Signed) Procedure Note Manuel Gurrola MD - 12/26/2024 For Patients: As a result of the Cures Act, medical imagingexams and procedure reports are released immediately into your electronicmedical record. You may view this report before your referring provider.If you have questions, please contact your health care provider. INDICATION: : Cough, unspecified type COMPARISON: CT biopsy on September 05, 2024 TECHNIQUE: Two view(s) of the chest FINDINGS/IMPRESSION: The cardiomediastinal silhouette and pulmonary vasculature areunremarkable. Suspected small left-sided pleural effusion with adjacent left basilaropacities may represent atelectasis versus an acuteinfectious/inflammatory process. The right lung is clear. No pneumothorax. No displaced fractures. Breast implants. Dictated by Manuel Gurrola MD @ 12/26/2024 10:21:08 AM (Electronically Signed) [facility] Final Re sult * URINE CULTURE [46357.2] - routine (11/19/2024 11:02 AM CDT) Pathologist [facility] CULTURE 10-50,000 CFU/mL of multiple organisms, probable contaminants 11/20/2024 7:25 PM CDT [facility] Urine URINE SPECIMEN / Unknown Non-Blood / Unknown 11/19/2024 11:02 AM CDT 11/19/2024 11:02 AM CDT Lorin Oneal NP MICROBIOLOGY Maricel l Result [facility] [address] [place] [address], [place] * (ABNORMAL) UA W/ SEDIMENT EXAM REFLEXED PER CRITERIA [[id number]] (11/19/2024 11:02 AM CDT) Pathologist [facility] COLOR YELLOW YELLOW 11/19/2024 11:11 AM CDT [facility] SPECIFIC GRAVITY 1.015 1.001 - 1.035 11/19/2024 11:11 AM T [facility] PH 5.5 5.0 - 8.0 11/19/2024 11:11 AM T [facility] PROTEIN NEGATIVE NEGATIVE 11/19/2024 11:[address] [facility] GLUCOSE NEGATIVE NEGATIVE 11/19/2024 11:11 AM T [facility] KETONES NEGATIVE NEGATIVE 11/19/2024 11:11 AM T [facility] BILIRUBIN NEGATIVE NEGATIVE 11/19/2024 11:11 AM T [facility] OCCULT BLOOD TRACE(A) NEGATIVE 11/19/2024 11:[address] [facility] NITRITE NEGATIVE NEGATIVE 11/19/2024 11:[address] [facility] LEUKOCYTE ESTERASE TRACE(A) NEGATIVE 11/19/2024 11:11 AM T [facility] APPEARANCE CLEAR CLEAR 11/19/2024 11:[address] [facility] WBC UA 6-10(A) < OR = 5 /HPF 11/19/2024 11:[address] [facility] RBC UA 0-2 < OR = 2 /HPF 11/19/2024 11:[address] [facility] SQUAMOUS EPITHELIAL CELLS UA 40-60(A) < OR = 5 /HPF 11/19/2024 11:11 AM T [facility] BACTERIA UA MANY(A) NONE SEEN /HPF 11/19/2024 11:[address] [facility] COMMENTS UA FEW MUCOUS THREADS 11/19/2024 11:[address] [facility] NOTE UA SEE NOTE 11/19/2024 11:[address] [facility] Comment: This urine was analyzed for the presence of WBC, RBC, bacteria, casts, and other formed elements. Only those elements seen were reported. Urine URINE SPECIMEN / Unknown Non-Blood / Unknown 11/19/2024 11:02 AM CDT 11/19/2024 11:02 AM CDT Lorin Wesley Shannon Oneal LARGE ANIMAL HUSBANDRY TECHNICIAN URINE Maricel l Result [employer] [facility] [address] [place] [address], [facility] [address] [place] [address], [place] * (ABNORMAL) LIPID PANEL W REFLEX MEASURED LDL (03/22/2024 9:28 AM BOAT ENGINE MECHANIC) CHOLESTEROL, TOTAL 462(H) <200 mg/dL [facility] HDL CHOLESTEROL 39(L) > OR = 50 mg/dL [facility] TRIGLYCERIDES 277(H) <150 mg/dL [facility] Comment: If a non-fasting specimen was collected, consider repeat triglyceride testing on a fasting specimen if clinically indicated. Jody et al. J. of Clin. Lipidol. 2015;9:129-169. LDL-CHOLESTEROL >350(H) mg/dL (calc) [facility] [place] Comment: LDL-C levels > or = 190 [...] about testing for familial hypercholesterolemia, please call [facility] at [phone].GENE.INFO. Jody Atkins, et al. J National Lipid Association Recommendations for Patient-Centered Management of Dyslipidemia: Part 1 Journal of Clinical Lipidology 2015;9(2), 129-169. Kaushal Hernandez et al. (2014). Homozygous familial hypercholesterolaemia: new insights and guidance for clinicians to improve detection and clinical management. Heart Journal, 35(32), 4773-7234. Reference range: <100 Desirable range <100 mg/dL for primary prevention; <70 mg/dL for patients with CHD or diabetic patients with > or = 2 CHD risk factors. LDL-C is now calculated using the Mariama calculation, which is a validated novel method providing better accuracy than the Friedewald equation in the estimation of LDL-C. Anil ARREOLA et al. BJORN. 2013;310(19): 4407-5369 (http://education.SeeJay/faq/PJR568) CHOL/HDLC RATIO 11.8(H) <5.0 (calc) [facility] Abdi Fragoso NON HDL CHOLESTEROL 423(H) <130 mg/dL (calc) [facility] Comment: Non-HDL level > or = [...] considered a therapeutic option. 03/22/2024 9:28 AM BOAT ENGINE MECHANIC 03/22/2024 9:28 AM BOAT ENGINE MECHANIC Kit [facility] CHEMISTRY Final Resul t [employer] [facility] [address] [place] [address], [facility] [address] [place] [address] * XR MAMMO HEIDE BILAT SCREEN IMPLANT (03/03/2024 8:38 AM BOAT ENGINE MECHANIC) Anatomical Region Laterality Modality BREASTS, Breast Left, Breast Right Bilateral Mammography Impressions 03/03/2024 11:45 AM BOAT ENGINE MECHANIC There is no radiographic evidence for malignancy. Recommend annual mammograms. MAMMOGRAM ASSESSMENT: ACR 2 Benign PATIENTS: You will also receive a letter with your examination results in an easy to read format. If you have questions about your results, please contact your referring provider. Narrative 03/03/2024 11:45 AM BOAT ENGINE MECHANIC For Patients: As a result of the Century Cures Act, medical imaging exams and procedure reports are released immediately into your electronic medical record. You may view this report before your referring provider. If you have questions, please contact your health care provider. XR MAMMO HEIDE BILAT SCREEN IMPLANT [[id number]] CLINICAL HISTORY: This is an asymptomatic 48 [...] or microcalcifications. There are breast implant(s) present.. us Kit [facility]REPO MAMMO Final Resul t * SDNA-FIT EXTERNAL (COLOGUARD) (12/11/2021 9:00 PM CDT) NONINV COLON CA DNA+OCC BLD SCRN STL-IMP Negative Negative 12/17/2021 4:48 PM CDT [employer] (CLIA #:[id number]) Comment: NEGATIVE TEST RESULT. A negative Cologuard [...] Luis Brown al, N Engl J Med 2014;370(14):6250-6133) The normal value (reference range) for this assay is negative. COLOGUARD RE-SCREENING RECOMMENDATION: Periodic colorectal cancer screening is an important part of preventive healthcare for asymptomatic individuals at average risk for colorectal cancer. Following a negative Cologuard result, the [place] Cancer Society and U.S. Multi-Society Task Force screening guidelines recommend a Cologuard re-screening interval of 3 years. References: [place] Cancer Society Guideline for Colorectal Cancer Screening: https://www.cancer.org/cancer/xfqbp-acclkn-hswvnv/ttgryghwt-oyddwdido-sauvhui/ac s-rec ommendations.html.; Adam DK, Wily CR, Odin DegrootK, Colorectal Cancer Screening: Recommendations for Physicians and Patients from the U.S. Multi-Society Task Force on Colorectal Cancer Screening , Am J Gastroenterology 2017; 112:1559-0523. TEST DESCRIPTION: Composite algorithmic analysis of stool [...] Luis Brown al, N Engl J Med 2014;370(14):6337-6889.) Cologuard may produce a false negative or false positive result (no colorectal cancer or precancerous polyp present at colonoscopy follow up). A negative Cologuard test result does not guarantee the absence of CRC or advanced adenoma (pre-cancer). The current Cologuard screening interval is every 3 years. ([employer] Cancer Society and U.S. Multi-Society Task Force). Cologuard performance data in a 10,000 patient pivotal study using colonoscopy as the reference method can be accessed at the following location: [email or web address].bideo.com/results. Additional description of the Cologuard test process, warnings and precautions can be found at www.Mintrd.com. Stool specimen (specimen) (Rectum) 12/11/2021 9:00 PM CDT 12/13/2021 5:43 PM CDT Kit RESTREPO URINE Final Resul t [employer] (CLIA #:[id number]) [place] [address], * HPV HIGH RISK (11/26/2021 9:52 AM CDT) TYPE 16 Negative Negative 11/29/2021 1:20 PM CDT [facility] TYPE 18 Negative Negative 11/29/2021 1:20 PM CDT [facility] OTHER HIGH RISK TYPES Negative Negative 11/29/2021 1:20 PM CDT [facility] [facility] Other (Cervical) Non-Blood / Unknown 11/26/2021 9:52 AM CDT 11/27/2021 3:45 PM CDT Narrative [facility] - 11/29/2021 1:20 PM CDT HPV types 16, 18, 31, 33, 35, 39, 45, 51, 52, 56, 58, 59, 66 and 68 DNA were undetectable or below the pre-set threshold. Methodology: Grace Gabo 4800 HPV Test Kit RESTREPO MICROBIOLOGY Final Resul t [facility] [address] [place] [address], * ANTI HCV (11/26/2021 9:10 AM CDT) HEPATITIS C ANTIBODY Non-React josafat Non-React josafat 11/27/2021 6:23 PM CDT [facility] Comment:Antibodies to HCV no t detected; does not exclude the possibility of exposure to HCV. Blood BLOOD SPECIMEN / Unknown Venipuncture / Unknown 11/26/2021 9:10 AM CDT 11/26/2021 9:10 AM CDT Kit RESTREPO SEND OUTS Final Resul t [facility] [address] [place] [address], from Last 3 Months or Most Recently Relevant to Health Maintenance Insurance [facility] Advance Directives * Full Code (Latest Code Status on File) Date Activated Date Inactivated Comments 04/09/2024 1:08 PM 04/11/2024 4:30 PM Question Answer Comments Code Status Discussion: Reviewed Preferences Care Teams Recycling Operations Manager Relationship Specialty [place] [address] [place] [address] PCP - General Family Practice 11/19/14
--- OUTSIDE RECORDS SUMMARY | 2024-12-26 11:43 | XMS_ITS | Encounter Summary ---
Author Organization [place] Address [address] [place] [address] Care Team Providers Care Hack Saw Operator Name Role Phone Kit Carmen PA-C Primary Care Provider + [phone] Dominic Khan MD Unavailable + [phone] Dominic Khan MD Unavailable + [phone] Encounter Details Date Type Department Care Team (Late st Contact Info) Description 08/16/2024 MyC Medical Advice Initial Department [address] [place] [phone] [facility] Social History Tobacco Use Types Packs/Day Years Used Date Smoking Tobacco: Never Assessed Adolescent Education Answer Date Record ed Getting School Help Needed Not on file 11/22 Comments Unknown Sex and Gender Information Value Date Recorded Sex Assigned at Not on file Legal Sex Female 3:27 AM LAMP STACK DEVELOPER Gender Identity Not on file Sexual Orientation Not on file documented as of this encounter Plan of Treatment Upcoming Encounters Date Type Department Care Team (Late st Contact Info) Description 04/23/2025 8:00 AM LAMP STACK DEVELOPER Lab [facility] [address] [place] [address] Dominic Khan MD [address] [place] [id number] 04/23/2025 9:00 AM LAMP STACK DEVELOPER Office Visit [facility] [address] [address] Dominic Khan MD [address] [place] [address] documented as of this encounter Visit Diagnoses Not on filedocumented in this encounter Care Teams Hack Saw Operator Relationship Specialty Start Date End Date Kit Carmen PA-C [facility] [address] [place] [address] PCP - General Physician Jacquard Loom Weaver 08/24/17 Dominic Khan MD [address] [place] [address] Gastroenterology 08/16/24 Dominic Khan MD [address] [place] [address] Assigned Gastroenterology Provider 11/14/24 documented as of this encounter
--- OUTSIDE RECORDS SUMMARY | 2024-12-26 11:43 | XMS_ITS | Encounter Summary ---
Author Organization [place] Address [address] [place] [address] Care Team Providers Care Telecom Field Technician Name Role Phone Kit Carmen PA-C Primary Care Provider + [phone] Dominic Khan MD Unavailable + [phone] Dominic Khan MD Unavailable + [phone] Encounter Details Date Type Department Care Team (Latest Contact Info) Description 11/14/2024 Travel Social History Tobacco Use Types Packs/Day Years Used Date Smoking Tobacco: Never Smokeless Tobacco: Never PHQ-2 Answer Date Recorded PHQ-2 Score 0 11/09/2024 Adolescent Education Answer Date Record ed Getting School Help Needed Not on file 11/22 Comments No Sex and Gender Information Value Date Recorded Sex Assigned at Not on file Legal Sex Female 3:27 AM BUSINESS CONSULTANT Gender Identity Not on file Sexual Orientation Not on file documented as of this encounter Plan of Treatment Upcoming Encounters Date Type Department Care Team (Late st Contact Info) Description 04/23/2025 8:00 AM BUSINESS CONSULTANT Lab [facility] [address] [place] [address] Dominic Khan MD [address] [place] [phone] 04/23/2025 9:00 AM BUSINESS CONSULTANT Office Visit [facility] [address] [address] Dominic Khan MD [address] [place] [address] documented as of this encounter Visit Diagnoses Not on filedocumented in this encounter Care Teams Telecom Field Technician Relationship Specialty Start Date End Date Kit Carmen PA-C [facility] [address] [place] [address] PCP - General Physician Line Patrolman 08/24/17 Dominic Khan MD [address] [place] [address] Gastroenterology 08/16/24 Dominic Khan MD [address] [place] [address] Assigned Gastroenterology Provider 11/14/24 documented as of this encounter
--- OUTSIDE RECORDS SUMMARY | 2024-12-26 11:43 | XMS_ITS | Encounter Summary ---
Author Organization [place] Address [address] [place] [address] Care Team Providers Care Weekend Receptionist Name Role Phone Kit Carmen PA-C Primary Care Provider + [phone] Dominic Khan MD Unavailable + [phone] Dominic Khan MD Unavailable + [phone] Encounter Details Date Type Department Care Team (Late st Contact Info) Description 11/20/2024 Results Follow-Up [facility] [address] [phone] Dominic Khan MD [address] [place] [address] Dx: Alcoholic cirrhosis of liver without ascites (H) (Primary Dx) Social History Tobacco Use Types Packs/Day Years Used Date Smoking Tobacco: Never Smokeless Tobacco: Never PHQ-2 Answer Date Recorded PHQ-2 Score 0 11/09/2024 Adolescent Education Answer Date Record ed Getting School Help Needed Not on file 11/22 Comments No Sex and Gender Information Value Date Recorded Sex Assigned at Not on file Legal Sex Female 3:27 AM MICROARRAY OPERATIONS VICE PRESIDENT Gender Identity Not on file Sexual Orientation Not on file documented as of this encounter Miscellaneous Notes * Telephone Encounter - Susie Perez LPN - 11/29/2024 1:09 PM CDT MELD labs entered. Susie Aggarwal LPN Hepatology Clinic --------- Dominic Khan MD to Me MELD labs in ~2 months please documented in this encounter Plan of Treatment Upcoming Encounters Date Type Department Care Team (Late st Contact Info) Description 04/23/2025 8:00 AM MICROARRAY OPERATIONS VICE PRESIDENT Lab [facility] [address] [phone] Dominic Khan MD [address] [place] [id number] 04/23/2025 9:00 AM MICROARRAY OPERATIONS VICE PRESIDENT Office Visit [facility] [address] [phone] Dominic Khan MD [address] [place] [phone] Scheduled Orders Name Type Priority Associated Diagnoses Orde r Schedule CBC with platelets Lab Routine Alcoholic cirrhosis of liver without ascites (H) Expected: 11/29/2024 (Approximate), Expires: 02/27/2025 Basic metabolic panel Lab Routine Alcoholic cirrhosis of liver without ascites (H) Expected: 11/29/2024 (Approximate), Expires: 02/27/2025 Hepatic function panel Lab Routine Alcoholic cirrhosis of liver without ascites (H) Expected: 11/29/2024 (Approximate), Expires: 02/27/2025 INR Lab Routine Alcoholic cirrhosis of liver without ascites (H) Expected: 11/29/2024 (Approximate), Expires: 02/27/2025 documented as of this encounter Visit Diagnoses Diagnosis Alcoholic cirrhosis of liver without ascites (H)- Primary Alcoholic cirrhosis of liver documented in this encounter Care Teams Weekend Receptionist Relationship Specialty Start Date End Date Kit Carmen PA-C [facility] [address] [place] [address] PCP - General Physician Content Development Manager 08/24/17 Dominic Khan MD [address] [place] [address] Gastroenterology 08/16/24 Dominic Khan MD [address] [place] [address] Assigned Gastroenterology Provider 11/14/24 documented as of this encounter
--- OUTSIDE RECORDS SUMMARY | 2024-12-26 11:43 | XMS_ITS | Encounter Summary ---
Author Organization [place] Address [address] [place] [address] Care Team Providers Care General Manager Name Role Phone Kit Carmen PA-C Primary Care Provider + [phone] Dominic Khan MD Unavailable + [phone] Dominic Khan MD Unavailable + [phone] Reason for Visit * Reason Onset Date Comments Symptoms 11/16/2024 Call back Encounter Details Date Type Department Care Team (Late st Contact Info) Description 11/16/2024 Telephone [facility] [address] [address] Dominic Khan MD [address] [place] [address] Symptoms (Call back) Social History Tobacco Use Types Packs/Day Years Used Date Smoking Tobacco: Never Smokeless Tobacco: Never PHQ-2 Answer Date Recorded PHQ-2 Score 0 11/09/2024 Adolescent Education Answer Date Record ed Getting School Help Needed Not on file 11/22 Comments No Sex and Gender Information Value Date Recorded Sex Assigned at Not on file Legal Sex Female 3:27 AM BLACKJACK PIT BOSS Gender Identity Not on file Sexual Orientation Not on file documented as of this encounter Miscellaneous Notes * Telephone Encounter - Patria Mattson - 11/16/2024 9:43 AM CDT Connected with the patient. Went over reply from Dr. Khan that the patient can try using a humidifier or nasal inhaled saline QID to keep moisturized. The black eye does not fit with liver disease and the patient should follow with her PCP to ensure nothing is being missed. Patient verbalized understanding and is agreeable to plan. Susie Aggarwal LPN [facility] Phone Message May a detailed message be left on voicemail: yes Reason for Call: Symptoms or Concerns If patient has red-flag symptoms, warm transfer to triage line Current symptom or concern: Black eye with bloody nose with clotting (happened 1 time last week as well) Symptoms have been present for: 1 day(s) Has patient previously been seen for this? Yes By: Dr. Khan Date: 11-15-24 Are there any new or worsening symptoms? No Action Taken: Message routed to: [facility] Hepatology Travel Screening: Not Applicable Date of Service: documented in this encounter Plan of Treatment Upcoming Encounters Date Type Department Care Team (Late st Contact Info) Description 04/23/2025 8:00 AM BLACKJACK PIT BOSS Lab [facility] [address] [phone] Dominic Khan MD [address] [place] [address] 04/23/2025 9:00 AM BLACKJACK PIT BOSS Office Visit [facility] [address] [phone] Dominic Khan MD [address] [place] [address] documented as of this encounter Visit Diagnoses Not on filedocumented in this encounter Care Teams General Manager Relationship Specialty Start Date End Date Kit Carmen PA-C [facility] [address] [place] [address] PCP - General Physician Transportation Manager 08/24/17 Dominic Khan MD [address] [place] [address] Gastroenterology 08/16/24 Dominic Khan MD [address] [place] [address] Assigned Gastroenterology Provider 11/14/24 documented as of this encounter
--- OUTSIDE RECORDS SUMMARY | 2024-12-26 11:44 | XMS_ITS | Encounter Summary ---
Author Organization [facility] Address [address] [place] [address] Care Team Providers Care Water Supply Engineer Name Role Phone Unavailable Primary Care Provider Unavailabl e Encounter Details Date Type Department Care Team (Latest Contact Info) Description 12/13/2024 Clinical Communication Division of Gastroenterology in [place], [place] [address] [place] [address] Eric Mi M.B., Ch.B., Ph.D. [address] [place] [address] Social History Tobacco Use Types Packs/Day Years Used Date Smoking Tobacco: Never Smokeless Tobacco: Never Alcohol Use Standard Drinks/Week Comments Not Currently 0 (1 standard drink = 0.6 oz pure alcohol) Started drinking after 30, only wine. Currently nor drinking at all. [facility] Utilities Answer Date Recorded In the past 12 months has [employer], gas, oil, or water [employer] threatened to shut off services in your home? No 06/21/2024 Hunger Vital Sign Answer Date Recorded Within the past 12 months, y ou worried that your food would run out before you got the money to buy more. Never true 06/22/19 25 Within the past 12 months, t he food you bought just didn't last and you didn't have money to get more. Never true 06/21/2024 PRAPARE - Transportation Answer Date Re corded In the past 12 months, has l ack of transportation kept you from medical appointments or from getting medications? No 05/25 In the past 12 months, has l ack of transportation kept you from meetings, work, or from getting things needed for daily living? No 06/21/2024 Housing Stability Answer Date Recorded What is your living situation today? I have a [facility] place to live 06/21/2024 Comments Unknown Sex and Gender Information Value Date Recorded Sex Assigned at Female 04/25/2024 2:06 PM DOUGH SHEETER Legal Sex Female 8:09 PM DOUGH SHEETER Gender Identity Female 04/25/2024 2:06 PM DOUGH SHEETER Sexual Orientation Straight 04/25/2024 2: 06 PM DOUGH SHEETER documented as of this encounter Plan of Treatment Not on file documented as of this encounter Visit Diagnoses Not on filedocumented in this encounter
--- OUTSIDE RECORDS SUMMARY | 2024-12-26 11:44 | XMS_ITS | Clinical Summary ---
Author Organization [facility] Address [address] [place] [address] Care Team Providers Care Game Designer/Creative Director Name Role Phone Unavailable Primary Care Provider Unavailabl e Source Comments Patient records contain information from all sites at [facility]. For routine questions regarding patient records, call [phone] during business hours, M-F 8:00 AM - 5:00 PM Central Time. Record requests for emergency care only can be directed to [phone] at any time.[facility] Allergies No known active allergies Medications * This document contains information received from the source organization and may not represent a complete record from that organization. thyroid, pork, 90 mg tablet Take 90 mg by mouth daily. Active thyroid, pork, 15 mg tablet Take 15 mg by mouth daily. Active Wegovy 1.7 mg/0.75 mL pen injector injection Inject 1.7 mg under the skin over 168 hr. 03/02/19 25 Active Wegovy 1 mg/0.5 mL pen injector injection Inject 1 mg under the skin over 168 hr. 04/13/19 25 Active progesterone (Prometrium) 200 mg capsule Take 200 mg by mouth daily. Active ondansetron ODT (Zofran-ODT) 4 mg disintegrating tablet Dissolve 8 mg in the mouth every 8 (eight) hours as needed. Active omeprazole (PriLOSEC OTC) [address] tablet Take 20 mg by mouth daily. Active naltrexone (Depade) 50 mg tablet Take 1 tablet by mouth daily. 03/24/19 25 Active metoprolol succinate (Toprol XL) 25 mg 24 hr tablet Take 25 mg by mouth daily. Currently not taking but may start again Active lisinopril-hydroCH LOROthiazide 20-12.5 mg per tablet Take 1 tablet by mouth daily. 03/03/19 25 Active levothyroxine 25 mcg tablet Take 25 mcg by mouth daily before morning meal. Active cholecalciferol (Vitamin D3) 50 mcg (2,000 Unit) capsule Take 2,000 Units by mouth daily. Active cetirizine (ZyrTEC) 10 mg tablet Take 10 mg by mouth at bedtime as needed. Active ALPRAZolam (Xanax) 1 mg tablet Take 1 mg by mouth as needed for anxiety. 08/04/19 24 Active Lactobacillus acidophilus 0.5 mg (100 million cell) tablet Take 1 capsule by mouth daily. Active testosterone (testoserone in Vanicream) Apply 10 mg of testosterone topically daily. 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 Date Type Department Care Team Description 12/13/2024 Clinical Communication Division of Gastroenterology in [place], [place] [address] [place] [address] Eric Mi M.B., Ch.B., Ph.D. 10/06/2024 Refill Division of Gastroenterology in [place], [place] [address] [place] [address] Gibran Patel M.D. Med Refill from Last 3 Months Family History Medical History Relation Name Comments Hyperlipidemia (high cholesterol) Father comparable levels to patient, on medications well managed Hyperlipidemia (high cholesterol) Father's Brother 1 Hyperlipidemia (high cholesterol) Father's Brother 2 Hyperlipidemia (high cholesterol) Maternal Grandfather Stroke Maternal Grandfather first i n 50s, second stroke in 70s Diabetes Maternal Grandmother Hyperlipidemia (high cholesterol) Maternal Grandmother Sudden Maternal Grandmother assumed [place] Hyperlipidemia (high cholesterol) Mother comparable to sole ernandez, on edications, responding well to statins Macular degeneration Mother Multiple sclerosis Mother dx. 30s Diabetes Mother's Brother 1 Heart attack Mother's Brother 1 Hyperlipidemia (high cholesterol) Mother's Brother 1 Coronary artery disease Mother's Brother 2 2 major surgeries since 40 (she thinks a bypass), no risk factors known) Heart attack Mother's Brother 2 Colon cancer Paternal Grandfather Coronary artery disease Paternal Grandmother Heart valve replacement Paternal Grandmother Hyperlipidemia (high cholesterol) Paternal Grandmother extremely high leve ls Relation Name Status Comments Father Alive Father's Brother 1 Alive Father's Brother 2 Alive Maternal Cousin 1 Alive Maternal Cousin 2 Alive Maternal Cousin 3 Alive Maternal Grandfather d. Stro ke Maternal Grandmother (Age 77) Mother Alive Mother's Brother 1 (Age 58) d. A ssumed [place] due to circumstances Mother's Brother 2 Alive Niece Alive Paternal Cousin 1 Alive Paternal Cousin 2 Alive Paternal Cousin 3 Alive Paternal Grandfather d. Canc er/Dementia Paternal Grandmother (Age 88) d. Sepsis Sister Alive Son 1 Alive Son 2 Alive Social History Tobacco Use Types Packs/Day Years Used Date Smoking Tobacco: Never Smokeless Tobacco: Never Tobacco Cessation:Counseling Given: Not Answered Alcohol Use Standard Drinks/Week Comments Not Currently 0 (1 standard drink = 0.6 oz pure alcohol) Started drinking after 30, only wine. Currently nor drinking at all. [facility] Utilities Answer Date Recorded In the past 12 months has [employer], oil, or water [employer] threatened to shut off services in your [...] your living situation today? I have a [facility] place to live 06/21/2024 Comments Unknown Sex and Gender Information Value Date Recorded Sex Assigned at Female 04/25/2024 2:06 PM HR ANALYST Legal Sex Female 8:09 PM HR ANALYST Gender Identity Female 04/25/2024 2:06 PM HR ANALYST Sexual Orientation Straight 04/25/2024 2: 06 PM HR ANALYST Last Filed Vital Signs Vital Sign Reading Time Taken Comments Blood Pressure 125/73 06/28/2024 12:07 PM CDT Pulse 90 06/28/2024 12:07 PM CDT Temperature - - Respiratory Rate 18 03/02/2014 10:4 5 AM HR ANALYST Vital sign result from Clinical Notes. Oxygen Saturation - - Inhaled Oxygen Concentration - - Weight 58 kg (127 lb 13.9 oz) 06/28/2024 12:07 PM CDT Height 165.8 cm (5' 5.28) 06/28/2024 1 2:07 PM CDT Body Mass Index 21.1 06/28/2024 12:07 PM CDT Plan of Treatment Health Maintenance Due Date Last Done Comments CT Colonography 1975 FIT 1975 HIV Screening 1975 Hepatitis C Screening 1975 Pneumococcal vaccine (0-49 years) (1 of 2 - PCV) 12/01/1994 Cervical/Vaginal Cancer Screening 01/03/2017 01/03/2014 (Performed elsewhere) Mammogram 09/01/2018 09/01/2017, 07/10/2016 Thyroid Stimulating Hormone (TSH) test for thyroid function 02/01/2019 02/01/2018 Depression Screening (Annual PHQ-2) 02/23/2024 Hepatitis B Vaccines (2 of 3 - Hep B Twinrix 3-dose series) 06/02/2024 05/05/2024 Abdominal Ultrasound 08/19/2024 02/19/2024, 02/19/20 24 COVID-19 Vaccine ( season) 2024 12/27/2020, 05/30/2020, 05/09/2020 Influenza Vaccine (#1) 2024 Cologuard 12/12/2024 12/12/2021 Creatinine Level (Kidney Function Test) 11/14/2025 11/14/2024, 06/28/2024, 04/18/2024, Additional history exists Potassium Level 11/14/2025 11/14/2024, 05/0 08/2024, 05/30/2024, Additional history exists Sodium Level 11/14/2025 11/14/2024, 05/0 08/2024, 04/18/2024, Additional history exists DTaP,Tdap,and Td Vaccines (3 - Td or Tdap) 04/28/2026 04/28/2016, 06/22/2006 Fasting Glucose for Diabetes Screening 11/15/2027 11/14/2024, 06/28/2024, 05/30/2024, Additional history exists Lipid (Cholesterol) Screening 06/28/2029 06/28/2024, 04/18/2024, 04/12/2023, Additional history exists Colonoscopy 06/05/2034 06/05/2024 Colorectal Cancer Screening 06/05/2034 Hepatitis B Screening Discontinued 11/14/2024, 025 IPV Vaccines Aged Out No longer eligi ble based on patient's age to complete this topic Medical Devices Implanted Type Area Welding Teacher Device Identifier Shelf Expiration Date Model / Serial / Lot Conversions - Default Historical Implant Device Implanted:2014 (Quantity not on file) Breast Implant Description:Device Status Te xt - BreastImp. breat implants in right and left breast. Conversions - Default Historical Implant Device Implanted:2014 (Quantity not on file) Hardware e.g. pins/screws/ rods Knee Description:Device Status Te xt - Hardware. screws/pins in left knee. [facility] Other-04/09/2024 Implanted:2024 (Quantity not on file) [facility] Other Liver / / [id number] Description:Angio-Seal Vascu lar Closure Device (will dissolve in 30 days) Procedures Procedure Name Priority Date/Time Associated Diagnosis Comments BASIC METABOLIC PANEL, S/P Routine 06/28/2024 10:45 AM CDT Abnormal Liver Function Test Cirrhosis Alcoholic (HCC) LIPID PANEL, S Routine 06/28/2024 10:42 AM CDT Abnormal Liver Function Test Pure Hypercholesterolemia HEPATITIS B SURFACE ANTIGEN Routine 04/18/2024 4:11 PM HR ANALYST Abnormal Liver Function Test from Last 3 Months or Most Recently Relevant to Health Maintenance Results * (ABNORMAL) Lipid Panel (06/28/2024 10:42 AM CDT) Triglycerides 339(H) mg/dL 06/28/2024 3:00 PM CDT DTL Comment: ----REFERENCE VALUE---- Normal: <150 mg/dL Borderline High: 150-199 mg/dL High: 200-499 mg/dL Very High: > or =500 mg/dL Cholesterol, Total 425(H) mg/dL 2024 3:00 PM CDT DTL Comment: ----REFERENCE VALUE---- Desirable: < 200 mg/dL Borderline High: 200 - 239 mg/dL High: > or = 240 mg/dL Cholesterol, LDL, Calculated 270(H) mg/dL 06/28/2024 3:00 PM CDT DTL Comment: The markedly elevated LDL level is suggestive of a genetic condition such as familial hypercholesterolemia (FH) or familial defective apolipoprotein B-100 (FDB). Family studies including biochemical testing for lipids (total cholesterol, triglycerides, LDL cholesterol and HDL cholesterol) are recommended. Genetic testing for hypercholesterolemia is available by ordering the Hypercholesterolemia Gene Panel (Test ID HCHLG). ----REFERENCE VALUE---- Desirable: <100 mg/dL Above Desirable: 100-129 mg/dL Borderline High: 130-159 mg/dL High: 160-189 mg/dL Very High: >=190 mg/dL ----ADDITIONAL INFORMATION---- LDL cholesterol calculated using the Moncada/NIH equation. Cholesterol, HDL, S 79 >=50 mg/dL 06/28/2024 3:00 PM CDT DTL Cholesterol, Non-HDL, Calculated 346(H) mg/dL 06/28/2024 3:00 PM CDT DTL Comment: ----REFERENCE VALUE---- Desirable: <130 mg/dL Above Desirable: 130-159 mg/dL Borderline High: 160-189 mg/dL High: 190-219 mg/dL Very High: > or =220 mg/dL Fasting (8 HR or more) Unknown 2:38 PM CDT DTL Blood (Blood, Venous) 06/28/2024 10:42 AM CDT 06/28/2024 2:38 PM CDT Didi Case APRN C.N.P., M.S.N. LAB BLOOD A DD-ON Final Result [facility] [address] [place] [address], [facility] [place] [address] [place] [address] from Last 3 Months or Most Recently Relevant to Health Maintenance Insurance [facility]
--- NOTE | 2024-12-26 12:14 | ED.GENADULT ---
HPI - General Adult General Date Seen: 12/26/24 Chief complaint: Shortness of Breath/Dyspnea Stated complaint: Pneumonia, Sent by urgent care Time Seen by Provider: 12/26/24 12:10 History of Present Illness HPI narrative: 49 yo F who has a history of liver cirrhosis, transaminitis, possible autoimmune hepatitis, history of alcohol use (now sober since diagnosis of cirrhosis). She was sent to the ER today by the [facility] urgent care. History from the patient and her is that she has been sick for about just a little less than a week, fiber 6 days. Symptoms started with just diffuse body aches and fatigue. Says she initially thought her symptoms might be side effects of her new liver medication (Ursodiol). However since then she has also developed sore throat, nasal congestion, and nonproductive cough with chest heaviness and shortness of breath. She also had an episode of a nosebleed mostly from her left nostril that occurred 2 days ago, on Wednesday while she was traveling in [place]. She had tested for COVID at home and was negative. She feels like she is getting a cure and more short of breath so came to the urgent care this morning. She says that in the Urgent Care she had an x-ray that showed possible pneumonia and pleural effusion so was referred to the ER. Per urgent care records from today (through [facility] care link) she had presented with chest tightness and shortness of breath after a trip to [place]. She had had a nosebleed in [place]. CXR 12/26/24 (today) FINDINGS/IMPRESSION: The cardiomediastinal silhouette and pulmonary vasculature are unremarkable. ? Suspected small left-sided pleural effusion with adjacent left basilar opacities may represent atelectasis versus an acute infectious/inflammatory process. The right lung is clear. No pneumothorax. ? No displaced fractures. Breast implants We do not have any past medical history records in the [facility] record. Through the [facility] care link I can see that the patient has a history of... Supraventricular tachycardia, hypertension, Hyperlipidemia, elevated BMI Hypothyroidism Cirrhosis of her liver, elevated transaminases, alcoholic cirrhosis, History of hemoperitoneum and blood loss anemia Anxiety, alcohol use Chronic kidney disease Current medications include Xanax Lipitor Coreg cetirizine vitamin D Levothyroxine naltrexone omeprazole Zofran Progesterone Semaglutide testosterone cream Thyroid 90 mg tablets armor Also through the [facility] link I am able to see a GI consult with [facility], dated 12/11/2024. 48-year-old woman presents today for follow-up of biopsy-proven cirrhosis, an ill-defined area in the liver. Patient is well-established with our liver clinic. Please refer to prior notes for full details. As you know, patient has biopsy-proven cirrhosis secondary to alcohol misuse. Patient had percutaneous liver biopsy in March 2024 which was complicated by bleeding. Indeed she underwent angiogram on April 09, 2024 at [facility]. 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 The left hepatic artery was successfully embolized using Gelfoam prophylactically. Patient quit drinking alcohol altogether. Her liver disease at this time is compensated. No evidence of ascites or hepatic encephalopathy. Patient had an upper endoscopy October 2023 which showed no varices, but portal hypertensive gastropathy. Noted to have elevated AFP of 15.3 on 05/05/2024, repeat 05/30/2024 11.7. US 05/12/24 without any liver lesions. MRI 07/25/24 with abnormal ill-defined signal in the right hepatic lobe. On September 05, 2024, patient underwent CT-guided biopsy of right hepatic lobe. Imaging abnormality. Path revealed well-differentiated micronodular cirrhosis compatible with history of steatohepatitis etiology, negative for neoplasm. Patient underwent a follow-up MRI October 25, 2024. This revealed persistent abnormal signal of the liver reflecting evolving hepatic fibrotic changes, but no suspicious liver lesion visualized. A few new cystic lesion in the right hepatic lobe, nonspecific. Her alpha-fetoprotein repeated 3 weeks ago remains relatively stable at 15.7. Interestingly, LFTs remain abnormal despite sobriety. The patient has not had any alcohol in the last 10 months. She had 2 Peth test, most recent October 2024 that have been negative. Most recent blood test November 14, 2024 revealed total bilirubin 5.8, direct bilirubin 2.8, alkaline phosphatase 321, AST 126, ALT 78. Patient reports generalized itching for which she was prescribed cholestyramine. No ascites. She had an upper endoscopy last year that showed no varices but portal hypertensive gastropathy Most recent labs available in the [facility] chart include 09/05/2024, hemoglobin 9.3, platelet count 102. INR 1.6 05/02/2024 total bilirubin 3.9, direct bilirubin 1.0, albumin 3.1, ALT 22, AST 57, ALP 125, 04/10/2024, sodium 133, bicarb 19, potassium 3.6, chloride 102 Related Data Home Medications ?Medication ?Instructions ?Recorded ?Confirmed atorvastatin 20 mg tablet 20 mg PO HS 02/28/22 12/26/24 levothyroxine 25 mcg tablet 25 mcg PO DAILY 08/13/22 12/26/24 progesterone micronized 200 mg 400 mg PO HS 08/13/22 12/26/24 capsule carvedilol 3.125 mg tablet 3.125 mg PO BID 06/23/24 12/26/24 alprazolam 1 mg tablet 0.5 - 1 mg PO DAILY PRN anxiety 10/22/24 12/26/24 furosemide 20 mg tablet 20 mg PO DAILY 10/22/24 12/26/24 semaglutide (weight loss) 1 mg/0.5 1 mg subcut 10/22/24 11/05/24 mL subcutaneous pen injector (Wegovy) spironolactone 50 mg tablet 50 mg PO DAILY 10/22/24 12/26/24 thyroid (pork) 90 mg tablet 90 mg PO DAILY 10/22/24 12/26/24 ([place] Thyroid) ursodiol 300 mg capsule 300 mg PO 3XD 12/26/24 12/26/24 Previous Rx's ?Medication ?Instructions ?Recorded ondansetron 4 mg disintegrating 4 mg PO Q6-8H PRN nausea and 02/28/22 tablet vomiting #30 tabs Allergies Allergy/AdvReac Type Severity Reaction Status Date / Time No Known Drug Allergies Allergy Verified 11/05/24 12:17 [facility] Medical History Elevated lipase ?R74.8 - Abnormal levels of other serum enzymes (ICD-10) Alcohol use ?F10.90 - Alcohol use, unspecified, uncomplicated (ICD-10) Abdominal pain ?R10.9 - Unspecified abdominal pain (ICD-10) Transaminitis ?R74.01 - Elevation of levels of liver transaminase levels (ICD-10) Overweight ?E66.3 - Overweight (ICD-10) Supraventricular tachycardia ?I47.10 - Supraventricular tachycardia, unspecified (ICD-10) Cirrhosis of liver ?K74.60 - Unspecified cirrhosis of liver (ICD-10) Hyperlipidemia ?E78.5 - Hyperlipidemia, unspecified (ICD-10) Hypertension ?I10 - Essential (primary) hypertension (ICD-10) Uncontrollable nausea and vomiting ?R11.2 - Nausea with vomiting, unspecified (ICD-10) Sore throat ?J02.9 - Acute pharyngitis, unspecified (ICD-10) Social History What is your current living situation?: I presently have a place to live Problems where you live: no known problems Problems where you live details: N/A In the past 12 months, utilities in danger of being shut off: no In past 12 months, lack of transportation kept you from medical appts, meetings, work, or getting things needed for daily living: no In the past 12 mos, have been you worried that your food would run out before you had money to buy more?: never true In the past 12 mos, the food you bought just didn't last and you didn't have money to buy more?: never true Highest level of school completed/degree received: Bachelor's degree Smoking Status: Never smoker How often do you have a drink containing alcohol: never How many standard drinks containing alcohol do you have on a typical day: 3 or 4 How often do you have six or more drinks on one occasion: Weekly AUDIT-C Alcohol total score: 4 Non-prescribed substance use: denies use Caffeine: Yes How often does anyone, including family, friends and others, physically hurt you: never How often does anyone, including family, friends and others, insult or talk down to you: never How often does anyone, including family, friends and others, threaten you with harm: never How often does anyone, including family, friends and others, scream or curse at you: never service: No Exam Narrative: Exam Narrative: Constitutional: Appears well-developed and well-nourished. Alert. Conversant and able to speak full sentences but looks worn down and tired. Heart rate is 115 (patient and note that she tends to have a resting elevated heart rate in the 90s). HENT: Head: Atraumatic. Nose: Nose normal. Mouth/Throat: Oral mucosa is clear and moist. no trismus. Pharynx normal. Tonsils symmetric. No tonsillar enlargement, erythema, or exudate. Eyes: Conjunctivae normal. EOM normal. Pupils equal, round, and reactive to light. No scleral icterus. Neck: Normal range of motion. Neck supple. No tracheal deviation present. Cardiovascular: Normal rate, regular rhythm. No gallop. No friction rub. No murmur heard. Symmetric radial artery pulses Pulmonary/Chest: Effort normal. No stridor. No respiratory distress. No wheezes. No rales. No rhonchi . No tenderness. Abdominal: Soft. Bowel sounds normal. mild distension. no fluid waves. No mass. No tenderness. No rebound. No guarding. Musculoskeletal: RUE: Normal range of motion. No tenderness. No deformity LUE: Normal range of motion. No tenderness. No deformity RLE: Normal range of motion. No edema. No tenderness. No deformity LLE: Normal range of motion. No edema. No tenderness. No deformity Neurological: Alert and oriented to person, place, and time. Normal strength. CN II-VII intact. No sensory deficit. GCS eye subscore is 4. GCS verbal subscore is 5. GCS motor subscore is 6. Normal coordination Skin: Skin is warm and dry. No rash noted. No pallor. Normal capillary refill. Psychiatric: Normal mood. Normal affect. Const: Vital Signs, click to edit/add: Vital Signs - 24 hr 12/26/24 11:55 12/26/24 13:26 12/26/24 13:27 Temperature 100.6 F H Pulse Rate 108 H 107 H Pulse Rate [Pulse Oximeter] 114 H Respiratory Rate 18 Blood Pressure 118/71 Blood Pressure [Ri ght Upper Arm] 107/60 Pulse Oximetry 98 99 98 Oxygen Delivery Me thod Room Air 12/26/24 13:30 12/26/24 13:31 12/26/24 13:32 Temperature Pulse Rate 107 H 106 H 107 H Pulse Rate [Pulse Oximeter] Respiratory Rate Blood Pressure 115/73 Blood Pressure [Ri ght Upper Arm] Pulse Oximetry 99 98 98 Oxygen Delivery Me thod 12/26/24 14:01 12/26/24 14:02 12/26/24 14:15 Temperature Pulse Rate 111 H 110 H 109 H Pulse Rate [Pulse Oximeter] Respiratory Rate Blood Pressure 119/77 Blood Pressure [Ri ght Upper Arm] Pulse Oximetry 100 99 98 Oxygen Delivery Me thod 12/26/24 14:30 12/26/24 14:31 12/26/24 14:45 Temperature Pulse Rate 113 H 111 H 109 H Pulse Rate [Pulse Oximeter] Respiratory Rate Blood Pressure 124/75 Blood Pressure [Ri ght Upper Arm] Pulse Oximetry 99 99 99 Oxygen Delivery Me thod 12/26/24 15:00 12/26/24 15:01 12/26/24 15:02 Temperature Pulse Rate 107 H 107 H 107 H Pulse Rate [Pulse Oximeter] Respiratory Rate 18 Blood Pressure 115/70 Blood Pressure [Ri ght Upper Arm] Pulse Oximetry 98 98 98 Oxygen Delivery Me thod Room Air 12/26/24 15:15 12/26/24 15:30 12/26/24 15:31 Temperature Pulse Rate 106 H 108 H 107 H Pulse Rate [Pulse Oximeter] Respiratory Rate 18 Blood Pressure 108/59 L Blood Pressure [Ri ght Upper Arm] Pulse Oximetry 97 96 97 Oxygen Delivery Me thod 12/26/24 15:45 12/26/24 16:00 12/26/24 16:01 Temperature Pulse Rate 107 H 112 H 112 H Pulse Rate [Pulse Oximeter] Respiratory Rate Blood Pressure 115/59 L Blood Pressure [Ri ght Upper Arm] Pulse Oximetry 96 96 97 Oxygen Delivery Me thod 12/26/24 16:15 12/26/24 16:30 12/26/24 16:31 Temperature Pulse Rate 107 H 108 H 108 H Pulse Rate [Pulse Oximeter] Respiratory Rate Blood Pressure 103/52 L Blood Pressure [Ri ght Upper Arm] Pulse Oximetry 97 95 94 Oxygen Delivery Me thod 12/26/24 16:32 12/26/24 16:45 12/26/24 17:00 Temperature Pulse Rate 107 H 111 H 107 H Pulse Rate [Pulse Oximeter] Respiratory Rate Blood Pressure Blood Pressure [Ri ght Upper Arm] Pulse Oximetry 94 97 96 Oxygen Delivery Me thod 12/26/24 17:01 12/26/24 17:15 12/26/24 17:30 Temperature Pulse Rate 107 H 107 H 109 H Pulse Rate [Pulse Oximeter] Respiratory Rate 18 Blood Pressure 94/50 L Blood Pressure [Ri ght Upper Arm] Pulse Oximetry 97 96 97 Oxygen Delivery Me thod 12/26/24 17:31 12/26/24 17:43 Temperature Pulse Rate 107 H 108 H Pulse Rate [Pulse Oximeter] Respiratory Rate Blood Pressure 91/50 L 97/54 L Blood Pressure [Ri ght Upper Arm] Pulse Oximetry 97 100 Oxygen Delivery Me thod Course Vital Signs Vital signs: Initial Vital Signs Temperature 100.6 F H 12/26/24 11:55 Temperature Source Temporal Artery Scan 12/26/24 11:55 Pulse Rate 114 H 12/26/24 11:55 Respiratory Rate 18 12/26/24 11:55 Blood Pressure 107/60 12/26/24 11:55 Blood Pressure Mean 75 12/26/24 11:55 Pulse Oximetry 98 12/26/24 11:55 Oxygen Delivery Method Room Air 12/26/24 11:55 Vital Signs Temperature 100.6 F H 12/26/24 11:55 Pulse Rate 114 H 12/26/24 11:55 Respiratory Rate 18 12/26/24 11:55 Blood Pressure 107/60 12/26/24 11:55 Pulse Oximetry 98 12/26/24 11:55 Oxygen Delivery Method Room Air 12/26/24 11:55 Temperature 100.6 F H 12/26/24 11:55 Pulse Rate 108 H 12/26/24 17:43 Respiratory Rate 18 12/26/24 17:01 Blood Pressure 97/54 L 12/26/24 17:43 Pulse Oximetry 100 12/26/24 17:43 Oxygen Delivery Method Room Air 12/26/24 15:01 Medications Administered Medications: Discontinued Medications Generic Name Dose Route Start Last Admin Trade Name Bhavikq PRN Reason Stop Dose Admin Acetaminophen 500 mg 12/26/24 13:55 12/26/24 14:18 Acetaminophen 500 Mg Tablet PO 12/26/24 13:56 500 mg ONCE ONE Administration Sodium Chloride 500 mls @ 500 mls/hr 12/26/24 12:46 12/26/24 14:04 0.9 % Sodium Chloride 500 Ml IV 12/26/24 13:45 Infused .Q1H ONE Infusion Ceftriaxone Sodium 1 gm/ 100 mls @ 200 mls/hr 12/26/24 12:46 12/26/24 14:43 Sodium Chloride IVPB 12/26/24 12:47 Infused ONCE ONE Infusion Doxycycline Hyclate 100 mg/ 100 mls @ 100 mls/hr 12/26/24 12:46 12/26/24 16:15 Sodium Chloride IVPB 12/26/24 12:47 Infused ONCE ONE Infusion Sodium Chloride 500 mls @ 500 mls/hr 12/26/24 13:54 12/26/24 15:23 0.9 % Sodium Chloride 500 Ml IV 12/26/24 14:53 Infused .Q1H ONE Infusion Medical Decision Making MDM Narrative Medical decision making narrative: 49-year-old female with a history of cirrhosis, following with [facility] and stable over recent months. She presents to the ER today with about a week's worth of symptoms including generalized fatigue, body aches, leading to nasal congestion, sore throat, cough, shortness of breath. She was diagnosed with a pneumonia based on chest x-ray at the [facility] urgent care and sent here to the ER. 1. Pulmonary. Chest x-ray report from the [facility] urgent Care did show left lower lobe infiltrate versus atelectasis and also a small left pleural effusion. CT scan of the patient's lungs obtained here in the ER... She is not hypoxic. She is not wheezing to suggest asthma or COPD. COVID/influenza/RSV PCR is negative. She has a small left pleural effusion on x-ray. I suspect this is related to fluid shifting from liver disease rather than empyema. Certainly not a large enough pleural effusion for me to perform thoracentesis here in the ER. Risks of iatrogenic pneumothorax and complication would highly outweigh the benefit. She does have significant myalgias and body aches. She wonders if this could be a side effect of her new liver medication, Ursadiol. I suspect her myalgias are symptoms of infection. 2. Hepatic. She does have known cirrhosis. She has been developing new signs of fluid overload including subtle peripheral edema, subtle bloating in her abdomen (but does not really have a largely distended abdomen or an ascitic fluid wave on my exam). She also has a small left pleural effusion which I think could be related to fluid shifting due to her liver disease. Labs show worsening transaminases with AST of 101 an ALT of 41 alk-phos of 266. Total bilirubin is up to 7.6 with direct bilirubin of 4.6. Most recent values available to me for comparison were about 8 months ago in April. 05/02/2024 total bilirubin 3.9, direct bilirubin 1.0, albumin 3.1, ALT 22, AST 57, ALP 125. However the patient did have a recent checkup with her liver specialist at [facility] and was led to believe that her liver functions were essentially stable at that time. She also has worsening thrombocytopenia with a platelet count down to 51. She has chronic anemia with hemoglobin around baseline at 8.8 today. Has been using Tylenol as recommended by her liver specialist. 500 mg per dose with infrequent doses because she is concerned about making her liver function worse by using too much Tylenol. Clearly not a pattern excess Tylenol use or overdose. 3. Infectious disease. With left lower lobe infiltrate and cough suspect community-acquired pneumonia. COVID is negative. Started on antibiotics for community-acquired pneumonia. With tachycardia and leukocytosis does meet criteria for sepsis. At this point her blood pressure oxygen are stable. Mental status is normal. She has good peripheral perfusion on her skin exam. I do not think she has severe sepsis or septic shock. We did order a small IV fluid bolus because of her tachycardia but made efforts to avoid excess crystalloid infusion because we will likely worsen her peripheral edema floor pleural effusion, and fluid retention because of her chronic liver disease. 4. Renal/electrolytes. She does have worsening hyponatremia with a sodium down to 127. She also has an acute kidney injury with BUN of 37 and a creatinine of 1.9. 5. Lipase is mildly elevated at 553. She is not really having upper abdominal pain to raise concern for pancreatitis. Given the patient's complex liver history, she is not a good candidate for admission here in [place]. She will need consultation with her GI/liver team. These are available at [facility]. Patient is accepted for admission at [facility] by hospitalist, Dr. Oshea Lab Data Labs: Lab Results 12/26/24 12/26/24 Range/Units 12:05 13:05 WBC 12.08 H (4.50-11.00) K/uL RBC 2.59 L (4.00-5.20) m/uL Hgb 8.8 L (12.0-16.0) gm/dL Hct 26.1 L (33.0-51.0) % MCV 101 H (80-100) fL MCH 34 (26-34) pg MCHC 34 (32-36) gm/dL RDW Coeff of Waldemar 16.5 H (11.5-15.5) % Plt Count 51 L (140-440) K/uL Neut % (Auto) 60.6 (42.0-72.0) % Lymph % (Auto) 11.7 L (20-44) % [place] % (Auto) 23.3 H (0.0-11.0) % Eos % (Auto) 4.0 (0.0-7.0) % Baso % (Auto) 0.2 (0.0-3.0) % Neut # (Auto) 7.30 H (1.7-7.0) K/uL Lymph # (Auto) 1.40 (0.90-2.90) K/uL [place] # (Auto) 2.80 H (0.00-0.90) K/UL Eos # (Auto) 0.50 (0.00-0.50) K/uL Baso # (Auto) 0.00 (0.00-0.30) K/uL Abs Immat Gran (auto) 0.00 (0.00-0.30) K/uL Imm/Tot Granulo (auto) 0.2 % Sodium 127 L (135-149) mmol/L Potassium 4.4 (3.6-5.1) mmol/L Chloride 99 (96-114) mmol/L Carbon Dioxide 21 (20-32) mmol/L Anion Gap 7 (7-15) mEq/L BUN 37 H (5-24) mg/dL Creatinine 1.9 H (0.5-1.5) mg/dL Estimated Creat Clear 33.53 Estimated GFR 32 ml/min Glucose 151 H (60-115) mg/dL Lactate 2.4 H (0.5-1.9) mmol/L Calcium 8.2 L (8.4-10.6) mg/dL Total Bilirubin 7.6 H (0.1-1.5) mg/dL Direct Bilirubin 4.6 H (0.0-0.5) mg/dL AST 101 H (12-35) U/L ALT 41 H (4-35) U/L Alkaline Phosphatase 266 H (40-150) U/L Total Protein 6.2 (6.0-8.3) g/dL Albumin 2.7 L (3.3-5.0) g/dL Lipase 553 H (23-300) U/L SARS-CoV-2 (PCR) Negative SARS-CoV-2 (Negative) Influenza Type A (PCR) Negative PCR FLU A (Negative) Influenza Type B (PCR) Negative PCR FLU B (Negative) RSV (PCR) Negative PCR RSV (Negative) Imaging Data CT scan - abdomen: Attestation: I have reviewed the pertinent imaging results. Radiologist's impression: Impression: 1. Diffuse hepatic heterogeneity. This may be due to cirrhosis, inflammation or tumor. MRI of the liver may be helpful for further characterization. 2. Two linear near water density lesions are present in the mid liver which are nonspecific and may represent small foci of infarction. 3. Distention of the gallbladder without stones is often seen with cirrhosis or hepatitis. Suggest clinical correlation for acalculous cholecystitis. 4. Progressive splenomegaly with varicosities. 5. Mild ascites, improved since previous study. 6. Small left pleural effusion with linear changes at both bases, greater on the left consistent with atelectasis and/or infiltrates. CT scan - chest: Attestation: I have reviewed the pertinent imaging results. Radiologist's impression: IMPRESSION: : 1. No pulmonary embolism. 2. Tiny left pleural effusion with atelectasis and/or patch infiltrates at the left base with milder, similar changes on the right. ECG Data Attestation: I personally reviewed and interpreted this ECG as follows: Interpretation: Sinus tachycardia with short NE interval Rate 108 NE interval 100. No delta waves. Normal QRS axis. No pathologic Q-waves. No ST segment elevation or depression. Nonspecific T-wave flattening in leads 2, AVF. QT 326, QTC 436 Discharge Plan Discharge Clinical Impression: Pneumonia, Sinus tachycardia, Cirrhosis, Abnormal LFTs, Acute kidney injury, Acute hyponatremia Patient Disposition: er [facility] Prescriptions: No Action carvedilol 3.125 mg tablet 3.125 mg PO BID atorvastatin 20 mg tablet 20 mg PO HS Patient Comments: TAKE ONE TABLET BY MOUTH AT BEDTIME ondansetron 4 mg tablet,disintegrating 4 mg PO Q6-8H PRN (Reason: nausea and vomiting) Qty: 30 0RF levothyroxine 25 mcg tablet 25 mcg PO DAILY progesterone micronized 200 mg capsule 400 mg PO HS alprazolam 1 mg tablet 0.5 - 1 mg PO DAILY PRN (Reason: anxiety) furosemide 20 mg tablet 20 mg PO DAILY spironolactone 50 mg tablet 50 mg PO DAILY thyroid (pork) [[place] Thyroid] 90 mg tablet 90 mg PO DAILY Wegovy 1 mg/0.5 mL pen injector 1 mg subcut ursodiol 300 mg capsule 300 mg PO 3XD
--- NOTE | 2024-12-26 12:46 | CRLHL7_ITS ---
For Patients: As a result of the Century Cures Act, medical imaging exams and procedure reports are released immediately into your electronic medical record. You may view this report before your referring provider. If you have questions, please contact your health care provider. INDICATION: Shortness of breath, tachycardia. TECHNIQUE: CT chest PE was acquired with Isovue 370, 90 mL IV contrast. 3D MIP images were performed by the technologist and the radiologist workstation. COMPARISON: February 16, 2023 and same-day CT abdomen and pelvis FINDINGS: Pulmonary Arteries: No pulmonary emboli. No arterial dilation. Aorta: No aneurysm or ulcerating plaques. Heart: Heart size is normal. No pericardial effusion. Lungs: Tiny left pleural effusion with atelectasis and/or infiltrate at the left base with milder similar pulmonary changes on the right. Pleura: As above. No right pleural effusion. No pleural thickening, or pneumothorax. Lymph nodes/mediastinum: No mediastinal, hilar, or axillary adenopathy. Chest wall: No masses. Stable bilateral saline breast implants Bones: Unremarkable for age. IMPRESSION: : 1. No pulmonary embolism. 2. Tiny left pleural effusion with atelectasis and/or patch infiltrates at the left base with milder, similar changes on the right. Please note that all CT scans at this facility use dose modulation, iterative reconstruction, and/or weight-based dosing when appropriate to reduce radiation dose to as low as reasonably achievable. Dictated by Brett Ledezma MD @ 12/26/2024 2:12:02 PM (Electronically Signed)
--- NOTE | 2024-12-26 12:46 | CRLHL7_ITS ---
For Patients: As a result of the Century Cures Act, medical imaging exams and procedure reports are released immediately into your electronic medical record. You may view this report before your referring provider. If you have questions, please contact your health care provider. Indication: Abdominal pain. History of cirrhosis. Technique: Routine enhanced abdomen and pelvis protocol with 95 mL of Isovue 370 contrast. Comparison: CT abdomen pelvis April 08, 2024 Findings : Lung bases: Small left pleural effusion. Linear changes at both lung bases consistent with atelectasis or subtle infiltrates, greater on the left. Liver: 2 new linear near water hypodensities are present in the right lobe measuring up to 2.7 centimeters not previously noted that may represent hepatic infarcts. Moderate heterogeneity of the liver with ill-defined subtle areas of decreased attenuation throughout both lobes of the liver. Gallbladder and bile ducts: The gallbladder is distended with diameter of up to 4.7 centimeters with pericholecystic fluid. No definite wall thickening. No calcified stones. No biliary dilation. Pancreas: Unremarkable. Spleen: Progressive moderate splenomegaly measuring 14.7 x 6.1 by 8.7 centimeters, (previously 11.6 x 4.5 x 7.1 centimeter. Splenic varicosities. The splenic and portal veins are patent. Portal vein measures 1.4 cm. Adrenal glands: Unremarkable. No masses. Kidneys: No obstruction. No masses. No calculi. GI tract: Normal in caliber and appearance. No sign of mass or inflammation. Colonic diverticulosis without focal inflammation. Appendix: No acute appendicitis. Lymph nodes: No lymphadenopathy. Aorta and vessels: No aneurysm or severe stenosis. Omentum/peritoneum/retroperitoneum: Mild ascites, improved since the previous study. Pelvic organs: Unremarkable. Bones: No fractures or suspicious bone lesions. Soft Tissues: No mass lesions or significant hernias. Impression: 1. Diffuse hepatic heterogeneity. This may be due to cirrhosis, inflammation or tumor. MRI of the liver may be helpful for further characterization. 2. Two linear near water density lesions are present in the mid liver which are nonspecific and may represent small foci of infarction. 3. Distention of the gallbladder without stones is often seen with cirrhosis or hepatitis. Suggest clinical correlation for acalculous cholecystitis. 4. Progressive splenomegaly with varicosities. 5. Mild ascites, improved since previous study. 6. Small left pleural effusion with linear changes at both bases, greater on the left consistent with atelectasis and/or infiltrates. Please note that all CT scans at this facility use dose modulation, iterative reconstruction, and/or weight-based dosing when appropriate to reduce radiation dose to as low as reasonably achievable. Dictated by Brett Ledezma MD @ 12/26/2024 2:25:26 PM (Electronically Signed)
[2024-12-26 12:49] LABS: PCR FLU A Negative PCR FLU A (Negative); PCR FLU B Negative PCR FLU B (Negative); PCR RSV Negative PCR RSV (Negative); SARS PCR* Negative SARS-CoV-2 (Negative)
[2024-12-26 13:15] LABS: Lactate* 2.4 mmol/L (0.5-1.9)
[2024-12-26 13:18] LABS: Hematocrit* 26.1 % (33.0-51.0); Hemoglobin* 8.8 gm/dL (12.0-16.0); Immature Granulocytes Pct Auto 0.2 %; Mean Corpuscular HGB Conc 34 gm/dL (32-36); Mean Corpuscular Hemoglobin 34 pg (26-34); Mean Corpuscular Volume 101 fL (80-100); RDW Coefficient of Variation % 16.5 % (11.5-15.5); Red Blood Count* 2.59 m/uL (4.00-5.20); White Blood Count* 12.08 K/uL (4.50-11.00)
[2024-12-26] MEDS: 0.9 % SODIUM CHLORIDE 500 ML 500 ML IV ×2 (13:19→14:18)
[2024-12-26] MEDS: cefTRIAXone 1 GM in 0.9 % SODIUM CHLORIDE Mini-bag 100 ML IVPB (13:20)
[2024-12-26 13:21] LABS: Immature Granulocytes Abs Auto 0.00 K/uL (0.00-0.30); Lymphocytes Absolute Auto 1.40 K/uL (0.90-2.90); Slide Review Reflex No
[2024-12-26 13:33] LABS: Chloride* 99 mmol/L (96-114)
[2024-12-26 13:34] LABS: Albumin* 2.7 g/dL (3.3-5.0); Potassium* 4.4 mmol/L (3.6-5.1); Sodium* 127 mmol/L (135-149)
[2024-12-26 13:36] LABS: Blood Urea Nitrogen* 37 mg/dL (5-24); Creatinine* 1.9 mg/dL (0.5-1.5); Est. Creatinine Clearance* 33.53; Estimated Glomerular Filt Rate 32 ml/min
[2024-12-26 13:37] LABS: Alanine Aminotransferase* 41 U/L (4-35); Alkaline Phosphatase* 266 U/L (40-150); Anion Gap 7 mEq/L (7-15); Aspartate Amino Transferase* 101 U/L (12-35); Bilirubin Direct* 4.6 mg/dL (0.0-0.5); Bilirubin Total* 7.6 mg/dL (0.1-1.5); Calcium* 8.2 mg/dL (8.4-10.6); Carbon Dioxide* 21 mmol/L (20-32); Glucose* 151 mg/dL (60-115); Total Protein* 6.2 g/dL (6.0-8.3)
[2024-12-26] MEDS: ACETAMINOPHEN 500 MG TABLET PO (14:18)
[2024-12-26] MEDS: DOXYCYCLINE HYCLATE 100 MG in 0.9 % SODIUM CHLORIDE Mini-bag 100 ML IVPB (14:42)
== END 2024-12-26 18:45 | disposition short-term general hospital (02) ==
PROVIDERS: Emergency Provider Emergency Medicine; PCP Physician Assistant Medical
DX: J18.9 Pneumonia, unspecified organism (principal); R00.0 Tachycardia, unspecified; K70.30 Alcoholic cirrhosis of liver without ascites; F10.21 Alcohol dependence, in remission; R94.5 Abnormal results of liver function studies; N17.9 Acute kidney failure, unspecified; E87.1 Hypo-osmolality and hyponatremia; Z79.899 Other long term (current) drug therapy
CPT/HCPCS: 36415; 71275; 74177; 80048; 80076; 83605; 83690; 85025; 87040; 87631; 93005; 96365; 96366; 96368; 99284; 99285; A9270; J0696; J7030; Q9967

== ENCOUNTER 2024-12-26 18:23 | Outpatient (CLI) | payer BC, SELFPAY | END 2024-12-26 18:24 | disposition home or self-care (01) | LOC: AMB 01-11 18:44 | PROVIDERS: PCP Physician Assistant Medical; Visit Provider Family Medicine | DX: J18.9 Pneumonia, unspecified organism (principal); R00.0 Tachycardia, unspecified; K74.60 Unspecified cirrhosis of liver | CPT/HCPCS: A0425; A0427 ==